=== PATIENT | male | born 1970 | race Caucasian/White ===

== ENCOUNTER 2016-06-16 04:38 | Emergency (ER) | payer OTHER ==
[~2016-06-16] VITALS: Ht 172.7 cm; Wt 134.5 kg
[~2016-06-16 04:38] MED LIST: ACET500C PO; COUM6TAB PO; GEMF600T PO; GLIP10TA6 PO; METF1000 PO; NEUR600T PO; PANT40TA3 PO; POTA-245 PO
[2016-06-16 04:39] VITALS: BP 138/83; PULSE 88; RESP 16; TEMP 98; O2SAT 94
--- NOTE | 2016-06-16 05:23 | PD ---
HPI Chief Complaint: Skin Problem Time Seen by Provider: 05:18 Travel History International Travel<30 days: No Contact w/Intl Traveler<30days: No Traveled to known affect area: No History of Present Illness HPI 46-year-old white male presents emergency department with complaints of a insect bite to his left leg which occurred a few days ago. He states that there is a small pustule that he squeezed. It had a small amount of clear fluid. He put Neosporin and a Band-Aid over it. Since then he has noticed some redness around it. He comes in for evaluation. He denies any drainage. No fever chills. No purulent drainage. Positive pruritus in the area of the redness. Up-to-date with immunizations. PFSH Past Medical History Hx Anticoagulant Therapy: Yes Asthma: Yes Autoimmune Disease: No Anxiety: Yes Depression: Yes Heart Rhythm Problems: No Cancer: No Cardiac Catheterization: Yes (X 1) Cardiovascular Problems: Yes High Cholesterol: Yes Chemotherapy: No Chest Pain: Yes Congestive Heart Failure: No COPD: No Cerebrovascular Accident: No Diabetes: Yes Patient Takes Glucophage: Yes Diminished Hearing: No Deep Vein Thrombosis: Yes (DVT AND PE'S. ) Endocrine: Yes Gastrointestinal Disorders: No Genitourinary: No Hypertension: No Immune Disorder: No Implanted Vascular Access Dvce: No Kidney Stones: No Musculoskeletal: No Neurologic: No Psychiatric: Yes Reproductive: No Respiratory: Yes Immunizations Current: Yes Myocardial Infarction: Yes (x2) Pancreatitis: Yes Radiation Therapy: No Renal Failure: No Sleep Apnea: No Thyroid Disease: Yes PNEUMOCCOCAL Vaccine (Year): 1 Past Surgical History Abdominal Surgery: Yes (BILATERAL INGUINAL HERNIA REPAIRS x 2) AICD: No Arteriovenous Shunt: No Body Medical Devices: cardiac stent Cardiac Surgery: No Coronary Stent: Yes Ear Surgery: No Endocrine Surgery: No Eye Surgery: No Genitourinary Surgery: No Hysterectomy: No Insulin Pump: No Joint Replacement: No Neurologic Surgery: No Oral Surgery: No Pacemaker: No Thoracic Surgery: No Other Surgery: Yes (DVT REMOVAL FROM LEFT LEG) Social History Alcohol Use: No Tobacco Use: No Substance Use: No Allergies-Medications (Allergen,Severity, Reaction): Coded Allergies: Adhesives (Verified Allergy, Severe, Hives, 05/06/16) Ibuprofen (Verified Allergy, Severe, Rash, 05/06/16) Latex (Verified Allergy, Severe, RASH, 05/06/16) Reported Meds & Prescriptions Reported Meds & Active Scripts Active Neurontin (Gabapentin) 600 Mg Tab 600 Mg PO TID Metformin (Metformin HCl) 1,000 Mg Tab 1,000 Mg PO BIDPC With meals Klor-Con M20 (Potassium Chloride Microencaps) 20 Meq Tab 20 Meq PO DAILY Coumadin (Warfarin) 6 Mg Tab 6 Mg PO DAILY 1 tablet on SMW, 2 tabs Tue Thurs Sat. Reported Glipizide 10 Mg Tab 10 Mg PO QID Take 30 minutes before a meal Gemfibrozil 600 Mg Tab 600 Mg PO BIDAC Take 30 minutes prior to breakfast and dinner. Acetaminophen 500 Mg Cap 500 Mg PO Q4-6H PRN Review of Systems Except as stated in HPI: all other systems reviewed are Neg Physical Exam Narrative GENERAL: This is a well-nourished, well-developed patient, in no apparent distress. SKIN: Examination of the inner left upper leg just above the knee there is a rectangular area of erythema with few superficial vesicles. There is no fluctuance or pointing. There is an area of central scab with healing. No drainage. HEAD: Atraumatic. Normocephalic. NECK: Trachea midline. supple, moves head freely. LUNGS: Clear to auscultation. CV: Regular in rhythm. ABDOMEN: Soft nontender. EXT: No clubbing cyanosis or edema. Data Data Last Documented VS Vital Signs Date Time Temp Pulse Resp B/P Pulse Ox O2 Delivery O2 Flow Rate FiO2 06/16/16 04:39 98.0 88 16 138/83 94 MDM Medical Decision Making Medical Screen Exam Complete: Yes Emergency Medical Condition: Yes Medical Record Reviewed: Yes Differential Diagnosis MDM: High Differential diagnoses: Abscess, folliculitis, cellulitis, lymphangitis, abrasion, contact dermatitis Narrative Course This is a contact reaction from applying topical antibiotic cream and a Band- Aid over a insect bite. The insect bite is healing. There is no signs of any secondary infection. He is having a localized allergic reaction. He is advised to discontinue topical antibiotic cream and Band-Aid. She is to use 1% had a cortisone cream. Diagnosis Primary Impression: insect bite with local reaction Patient Instructions: General Instructions Additional Instructions: Rest. Daily wound care with soap, water, and apply 1% hydrocortisone cream 3 times daily. May take 25-50 g of Benadryl every 4-6 hours as needed for pruritus. Recheck with the clinic in 3-5 days. Return to the ER if any problems. Med/Other Pt SpecificInfo: Wound Care Disposition: 01 DISCHARGE HOME Condition: Stable Viet Abdalla Jun 16, 2016 05:23
[2016-07-29] MEDS ORDERED: NOVORP2 SQ (15:08)
[2016-07-29] MEDS ORDERED: FURO1TAB62 PO (15:11)
[2016-07-29] MEDS ORDERED: TYLE325T PO (15:13)
[2016-08-27] MEDS ORDERED: METF1000 PO (16:35)
== END 2016-06-16 05:25 | disposition home or self-care (01) ==
LOC: NEPB 04:38
DX: S70.362A Insect bite (nonvenomous), left thigh, initial encounter (principal); E78.00 Pure hypercholesterolemia, unspecified; Z86.718 Personal history of other venous thrombosis and embolism; Z79.01 Long term (current) use of anticoagulants
CPT/HCPCS: 99283

== ENCOUNTER 2016-07-17 22:10 | Emergency (ER) | payer OTHER ==
[~2016-07-17] VITALS: Ht 172.7 cm; Wt 137.0 kg
[~2016-07-17 22:10] MED LIST changes: -PANT40TA3 PO
[2016-07-17 22:14] VITALS: BP 176/88; PULSE 90; RESP 16; TEMP 97.7; O2SAT 96
--- NOTE | 2016-07-17 23:36 | PD ---
HPI Chief Complaint: Musculoskeletal Complaint Time Seen by Provider: 23:34 Travel History International Travel<30 days: No Contact w/Intl Traveler<30days: No Traveled to known affect area: No History of Present Illness HPI 46-year-old white male presents to emergency department with complaints of tenderness in the right palm for the past few hours. He states that he noticed a tender area in his palm which he felt had some nodularity to it. He states that he was concerned that this may be a blood clot. He states that he works out on a daily basis with [employer]. He takes Coumadin due to history of blood clots in his lower extremities. His last INR was 2.4 approximately 2 months ago according to the patient. He denies any numbness or tingling. No direct trauma other than a weight lifting. He does not recall an injury though [facility] Past Medical History Hx Anticoagulant Therapy: Yes Asthma: Yes Autoimmune Disease: No Anxiety: Yes Depression: Yes Heart Rhythm Problems: No Cancer: No Cardiac Catheterization: Yes (X 1) Cardiovascular Problems: Yes ([place]) High Cholesterol: Yes Chemotherapy: No Chest Pain: Yes Congestive Heart Failure: No COPD: No Cerebrovascular Accident: No Diabetes: Yes Diminished Hearing: No Deep Vein Thrombosis: Yes (DVT AND PE'S. ) Endocrine: Yes Gastrointestinal Disorders: No Genitourinary: No Hypertension: No Immune Disorder: No Implanted Vascular Access Dvce: No Kidney Stones: No Musculoskeletal: No Neurologic: No Psychiatric: Yes Reproductive: No Respiratory: Yes (PE X2) Immunizations Current: Yes Myocardial Infarction: Yes (x2) Pancreatitis: Yes Radiation Therapy: No Renal Failure: No Sleep Apnea: No Thyroid Disease: Yes PNEUMOCCOCAL Vaccine (Year): 1 Past Surgical History Abdominal Surgery: Yes (BILATERAL INGUINAL HERNIA REPAIRS x 2) AICD: No Arteriovenous Shunt: No Body Medical Devices: cardiac stent Cardiac Surgery: No Coronary Stent: Yes Ear Surgery: No Endocrine Surgery: No Eye Surgery: No Genitourinary Surgery: No Hysterectomy: No Insulin Pump: No Joint Replacement: No Neurologic Surgery: No Oral Surgery: No Pacemaker: No Thoracic Surgery: No Other Surgery: Yes (DVT REMOVAL FROM LEFT LEG) Social History Alcohol Use: No Tobacco Use: No Substance Use: No Allergies-Medications (Allergen,Severity, Reaction): Coded Allergies: Adhesives (Verified Allergy, Severe, Hives, 07/17/16) Ibuprofen (Verified Allergy, Severe, Rash, 07/17/16) Latex (Verified Allergy, Severe, RASH, 07/17/16) Reported Meds & Prescriptions Reported Meds & Active Scripts Active Neurontin (Gabapentin) 600 Mg Tab 600 Mg PO TID Metformin (Metformin HCl) 1,000 Mg Tab 1,000 Mg PO BIDPC With meals Klor-Con M20 (Potassium Chloride Microencaps) 20 Meq Tab 20 Meq PO DAILY Coumadin (Warfarin) 6 Mg Tab 6 Mg PO DAILY 1 tablet on SMW, 2 tabs Tue Thurs Sat. Reported Glipizide 10 Mg Tab 10 Mg PO QID Take 30 minutes before a meal Gemfibrozil 600 Mg Tab 600 Mg PO BIDAC Take 30 minutes prior to breakfast and dinner. Acetaminophen 500 Mg Cap 500 Mg PO Q4-6H PRN Review of Systems Except as stated in HPI: all other systems reviewed are Neg Physical Exam Narrative GENERAL: This is a well-nourished, well-developed patient, in no apparent distress. SKIN: No rashes, ecchymoses or lesions. Warm and dry. HEAD: Atraumatic. Normocephalic. EYES: PERRL, EOMI, no discharge or injection. No scleral icterus. EARS: Clear NOSE: Nasal turbinates appear normal. THROAT: Mucosa pink and moist. Airway patent. NECK: Trachea midline. supple, moves head freely. LUNGS: Clear to auscultation. CV: Regular in rhythm. ABDOMEN: Soft nontender. EXT: No clubbing cyanosis chronic edema to the lower extremities. He is wearing DESIREE hose. Examination of the right hand reveals mild tenderness in the thenar eminence but no erythema, warmth or swelling. He moves his hand freely. He has good distal pulses and Refill. No evidence of DVT. Data Data Last Documented VS Vital Signs Date Time Temp Pulse Resp B/P Pulse Ox O2 Delivery O2 Flow Rate FiO2 07/17/16 22:14 97.7 90 16 176/88 96 Room Air Orders Prothrombin Time / Inr (Pt) (07/17/16 23:17) Labs Laboratory Tests Test 07/17/16 23:29 Prothrombin Time 29.7 SEC Prothromb Time International 2.6 RATIO Ratio MDM Medical Decision Making Medical Screen Exam Complete: Yes Emergency Medical Condition: Yes Medical Record Reviewed: Yes Interpretation(s) Laboratory Tests Test 07/17/16 23:29 Prothrombin Time 29.7 SEC Prothromb Time International 2.6 RATIO Ratio Differential Diagnosis MDM: High Differential diagnoses: Fracture, sprain, strain, dislocation, contusion, neurovascular injury, DVT Narrative Course INR is 2.6. I do not believe that this is a blood clot. This may be a small hematoma but I do not see any major significance to it at this time. This is right hand pain Diagnosis Primary Impression: Right hand pain Patient Instructions: General Instructions Additional Instructions: Rest. Elevation. Heating pad. Tylenol. Follow-up with your doctor on Thursday. Med/Other Pt SpecificInfo: No Meds Exist/No RX given Disposition: DISCHARGE HOME Condition: Stable Viet Abdalla Jul 17, 2016 23:36
[2016-07-18 00:01] LABS: INTERNATIONAL NORMALIZED RATIO 2.6 RATIO; PROTHROMBIN TIME - PATIENT 29.7 SEC (9.8-11.6)
[2016-07-29] MEDS ORDERED: NOVORP2 SQ (15:08)
[2016-07-29] MEDS ORDERED: FURO1TAB62 PO (15:11)
[2016-07-29] MEDS ORDERED: TYLE325T PO (15:13)
[2016-08-27] MEDS ORDERED: METF1000 PO (16:35)
== END 2016-07-18 01:09 | disposition home or self-care (01) ==
LOC: NEPB 22:10
DX: M79.641 Pain in right hand (principal); Z86.718 Personal history of other venous thrombosis and embolism; Z86.711 Personal history of pulmonary embolism; E78.00 Pure hypercholesterolemia, unspecified; I25.2 Old myocardial infarction; J45.909 Unspecified asthma, uncomplicated; E11.9 Type 2 diabetes mellitus without complications
CPT/HCPCS: 85610; 99283

== ENCOUNTER 2016-08-22 01:21 | Emergency (ER) | payer OTHER ==
[~2016-08-22] VITALS: Ht 172.7 cm; Wt 136.0 kg
[~2016-08-22 01:21] MED LIST changes: -CIPR-9 PO; -HYDR-3533 PO; -LOPE2CAP PO; -LOPE2TAB3 PO; -WARF-60 PO
[2016-08-22 01:23] VITALS: BP 148/82; PULSE 104; RESP 16; TEMP 97.7; O2SAT 96
--- NOTE | 2016-08-22 02:29 | PD ---
HPI Chief Complaint: Chest Pain Time Seen by Provider: 02:02 Travel History International Travel<30 days: No Contact w/Intl Traveler<30days: No Traveled to known affect area: No History of Present Illness HPI 46-year-old man with a history of multiple medical problems including morbid obesity, CAD, PE on warfarin, diabetes, and pancreatitis who presents to the emergency department complaining of dark mucoid loose stools for the past 4 days. Patient states that intermittent similar diarrhea in the past. He's had multiple associated complaints including some intermittent leg pain similar to his past sciatica but in the other leg, as well as some right sided chest pain and that's been ongoing. No vomiting. No fevers. History Past Medical History Narrative Medical CAD, [place] PE, on warfarin Diabetes Hypothyroidism Neuropathy PNEUMOCCOCAL Vaccine (Year): 1 Social History Alcohol Use: No Tobacco Use: No Allergies-Medications (Allergen,Severity, Reaction): Coded Allergies: Adhesives (Verified Allergy, Severe, Hives, 08/22/16) Ibuprofen (Verified Allergy, Severe, Rash, 08/22/16) Latex (Verified Allergy, Severe, RASH, 08/22/16) Reported Meds & Prescriptions Reported Meds & Active Scripts Active Lasix (Furosemide) 20 Mg Tab 20 Mg PO DAILY Neurontin (Gabapentin) 600 Mg Tab 600 Mg PO TID Metformin (Metformin HCl) 1,000 Mg Tab 1,000 Mg PO BIDPC With meals Klor-Con M20 (Potassium Chloride Microencaps) 20 Meq Tab 20 Meq PO DAILY Coumadin (Warfarin) 6 Mg Tab 6 Mg PO DAILY 1 tablet on SMW, 2 tabs Tue Thurs Sat. Reported Glipizide 10 Mg Tab 10 Mg PO QID Take 30 minutes before a meal Gemfibrozil 600 Mg Tab 600 Mg PO BIDAC Take 30 minutes prior to breakfast and dinner. Acetaminophen 500 Mg Cap 500 Mg PO Q4-6H PRN Review of Systems Except as stated in HPI: all other systems reviewed are Neg Physical Exam Narrative GENERAL: Morbidly obese 38 year-old man, pacing SKIN: Focused skin assessment warm/dry. NECK: Trachea midline. No JVD. CARDIOVASCULAR: Regular rate and rhythm. No murmur appreciated. RESPIRATORY: No accessory muscle use. Clear to auscultation. Breath sounds equal bilaterally. GASTROINTESTINAL: Abdomen is obese, soft, some mild right sided tenderness. No rebound or guarding. MUSCULOSKELETAL: No obvious deformities. No edema. NEUROLOGICAL: Awake and alert. No obvious cranial nerve deficits. Motor grossly within normal limits. Normal speech. PSYCHIATRIC: Appropriate mood and affect; insight and judgment normal. Data Data Last Documented VS Vital Signs Date Time Temp Pulse Resp B/P Pulse Ox O2 Delivery O2 Flow Rate FiO2 08/22/16 01:23 97.7 104 16 148/82 96 Room Air Orders Electrocardiogram (08/22/16 ) Complete Blood Count With Diff (08/22/16 02:11) Comprehensive Metabolic Panel (08/22/16 02:11) Enteric Path (Stool) (08/22/16 02:11) C Diff Toxin Pcr (08/22/16 02:11) Chest, Single Ap (08/22/16 ) Prothrombin Time / Inr (Pt) (08/22/16 03:25) Labs Laboratory Tests Test 08/22/16 08/22/16 02:30 03:20 White Blood Count 10.7 TH/MM3 Red Blood Count 5.28 MIL/MM3 Hemoglobin 15.7 GM/DL Hematocrit 44.2 % Mean Corpuscular Volume 83.7 FL Mean Corpuscular Hemoglobin 29.6 PG Mean Corpuscular Hemoglobin 35.4 % Concent Red Cell Distribution Width 13.8 % Platelet Count 244 TH/MM3 Mean Platelet Volume 9.2 FL Neutrophils (%) (Auto) 57.1 % Lymphocytes (%) (Auto) 31.5 % Monocytes (%) (Auto) 7.8 % Eosinophils (%) (Auto) 2.9 % Basophils (%) (Auto) 0.7 % Neutrophils # (Auto) 6.1 TH/MM3 Lymphocytes # (Auto) 3.4 TH/MM3 Monocytes # (Auto) 0.8 TH/MM3 Eosinophils # (Auto) 0.3 TH/MM3 Basophils # (Auto) 0.1 TH/MM3 CBC Comment DIFF FINAL Differential Comment Sodium Level 142 MEQ/L Potassium Level 4.0 MEQ/L Chloride Level 105 MEQ/L Carbon Dioxide Level 27.4 MEQ/L Anion Gap 10 MEQ/L Blood Urea Nitrogen 15 MG/DL Creatinine 0.98 MG/DL Estimat Glomerular Filtration 82 ML/MIN Rate Random Glucose 150 MG/DL Calcium Level 9.4 MG/DL Total Bilirubin 0.4 MG/DL Aspartate Amino Transf 20 U/L (AST/SGOT) Alanine Aminotransferase 34 U/L (ALT/SGPT) Alkaline Phosphatase 89 U/L Total Protein 7.3 GM/DL Albumin 3.7 GM/DL Prothrombin Time 20.0 SEC Prothromb Time International 1.8 RATIO Ratio MDM Medical Decision Making Medical Screen Exam Complete: Yes Emergency Medical Condition: Yes Interpretation(s) My review of EKG: Normal sinus rhythm at a rate of 90, normal axis, normal intervals, no definite evidence of acute ischemia. LABS: CBC unremarkable. BMP unremarkable INR 1.8 Differential Diagnosis Diarrhea, colitis, enteritis, pancreatic exocrine insufficiency, other Narrative Course Medical decision making 38-year-old male history of hepatitis presents to the emergency department with mucoid oily stools for the past several days. Likely enteritis or pancreatic exocrine insufficiency. We'll check screening labs. His multiple associated complaints including some right sided chest pain. He looks otherwise well. We' ll check screening EKG and chest x-ray. Diagnosis Primary Impression: Diarrhea Additional Instructions: Take Cipro and Imodium as prescribed. Follow-up with your primary doctor next week for repeat evaluation and recheck INR. Return to the emergency department for any new or worsening symptoms. Med/Other Pt SpecificInfo: Prescription(s) given Scripts Loperamide 2 Mg Tab2 Mg PO DIRECTED PRN (DIARRHEA) #8 TAB One tablet after each loose stool. Not to exceed 8 tablets per day. Prov:Tyrell Lopez MD 08/22/16 Ciprofloxacin (Cipro)500 Mg [id number] Mg PO BID 5 Days Prov:Tyrell Lopez MD 08/22/16 Disposition: 01 DISCHARGE HOME Condition: Stable Tyrell Lopez MD Aug 22, 2016 02:29
[2016-08-22 02:49] LABS: AUTOMATED NEUTROPHIL # 6.1 TH/MM3 (1.8-7.7); BASOPHIL # 0.1 TH/MM3 (0-0.2); BASOPHIL % 0.7 % (0.0-2.0); EOSINOPHIL # 0.3 TH/MM3 (0-0.4); EOSINOPHIL % 2.9 % (0.0-4.0); HEMATOCRIT 44.2 % (39.0-51.0); HEMO FLAGS DIFF FINAL; LYMPH % 31.5 % (9.0-44.0); LYMPHOCYTE # 3.4 TH/MM3 (1.0-4.8); MEAN CELL VOLUME 83.7 FL (80.0-100.0); MEAN CORPUSCULAR HEMOGLOBIN 29.6 PG (27.0-34.0); MEAN CORPUSCULAR HGB CONC 35.4 % (32.0-36.0); MONO % 7.8 % (0.0-8.0); NEUT % 57.1 % (16.0-70.0); PLATELET COUNT 244 TH/MM3 (150-450); RED BLOOD COUNT 5.28 MIL/MM3 (4.50-5.90); RED CELL DISTRIBUTION WIDTH 13.8 % (11.6-17.2); WHITE BLOOD COUNT 10.7 TH/MM3 (4.0-11.0)
[2016-08-22 03:16] LABS: ALT (GPT) 34 U/L (12-78); ANION GAP 10 MEQ/L (5-15); AST (GOT) 20 U/L (15-37); BICARBONATE 27.4 MEQ/L (21.0-32.0); BLOOD UREA NITROGEN 15 MG/DL (7-18); CHLORIDE 105 MEQ/L (98-107); GLOMERULAR FILTRATION RATE 82 ML/MIN (>89); SODIUM (NA) 142 MEQ/L (136-145)
[2016-08-22 03:19] LABS: ALKALINE PHOSPHATASE 89 U/L (45-117); TOTAL BILIRUBIN ADULT 0.4 MG/DL (0.2-1.0)
--- NOTE | 2016-08-22 03:19 | RADRPT ---
EXAM DATE/TIME: 08/22/2016 02:36 [facility] COMPARISON: CHEST SINGLE AP, January 31, 2014, 5:53. INDICATIONS : Chest pain. MEDICAL HISTORY : Myocardial infarction. Diabetes mellitus type II. Coronary artery disease. SURGICAL HISTORY : Coronary artery stent. ENCOUNTER: Initial ACUITY: 1 day PAIN SCORE: 5/10 LOCATION: Bilateral chest FINDINGS: The lungs are clear without infiltrate, nodule, or mass. There is no appreciable pleural effusion fo r technique. Heart and mediastinum are unremarkable. CONCLUSION: No acute cardiopulmonary disease. Hazel Raza MD on August 22, 2016 at 3:17 Board Certified Radiologist. This report was verified electronically.
[2016-08-22 03:53] LABS: INTERNATIONAL NORMALIZED RATIO 1.8 RATIO
[2016-08-22] MEDS ORDERED: CIPR-9 PO (04:09)
[2016-08-22] MEDS ORDERED: LOPE2TAB3 PO (04:09)
--- NOTE | 2016-08-22 13:39 | EKG ---
Date Performed: 08/22/2016 Time Performed: 02:21:59 PTAGE: 46 years EKG: Sinus rhythm NONSPECIFIC T-WAVE ABNORMALITY BORDERLINE ECG Compared to prior tracing no significant change PREVIOUS TRACING : 01/24/2015 13.33 DOCTOR: [place] Interpretating Date/Time 08/22/2016 13:36:36
[2016-08-27] MEDS ORDERED: METF1000 PO (16:35)
== END 2016-08-22 04:53 | disposition home or self-care (01) ==
LOC: NEPC 01:21
DX: R19.7 Diarrhea, unspecified (principal); R07.89 Other chest pain; M79.606 Pain in leg, unspecified; R94.31 Abnormal electrocardiogram [ECG] [EKG]; E11.9 Type 2 diabetes mellitus without complications; E03.9 Hypothyroidism, unspecified; E66.01 Morbid (severe) obesity due to excess calories; Z79.01 Long term (current) use of anticoagulants; Z79.84 Long term (current) use of oral hypoglycemic drugs; Z86.79 Personal history of other diseases of the circulatory system; Z86.711 Personal history of pulmonary embolism; Z87.19 Personal history of other diseases of the digestive system; Z86.69 Personal history of other diseases of the nervous system and sense organs
CPT/HCPCS: 71010; 80053; 85025; 85610; 93005

== ENCOUNTER → 2016-08-22 | Outpatient (CLI) | payer OTHER ==
[~2016-08-22] MED LIST changes: +CIPR-9 PO; +FURO1TAB62 PO; +HYDR-3533 PO; +LOPE2CAP PO; +LOPE2TAB3 PO; +WARF-60 PO
[2016-08-22 15:29] LABS: INTERNATIONAL NORMALIZED RATIO 1.9 RATIO; PROTHROMBIN TIME - PATIENT 21.4 SEC (9.8-11.6)
[2016-08-22 15:50] LABS: HDL CHOLESTEROL 37.9 MG/DL (40.0-60.0); LDL CHOLESTEROL 120 MG/DL (0-99)
[2016-08-22 16:30] LABS: HEMOGLOBIN A1a 1.2 %; HEMOGLOBIN A1b 2.7 %; HEMOGLOBIN Ao 79.2 %; HEMOGLOBIN LA1C 2.7 %; HEMOGLOBIN P3 4.3 %
== END ==
LOC: CLAB 13:56
PROVIDERS: ATTEND Physician Assistant Medical
DX: I82.409 Acute embolism and thrombosis of unspecified deep veins of unspecified lower extremity (principal); E78.5 Hyperlipidemia, unspecified; Z86.711 Personal history of pulmonary embolism
CPT/HCPCS: 36415; 80061; 83036; 85610

== ENCOUNTER 2016-08-28 18:58 | Emergency (ER) | payer OTHER ==
[~2016-08-28 18:58] MED LIST changes: +CIPR-9 PO; +LOPE2TAB3 PO
[2016-08-28 19:00] VITALS: BP 133/67; PULSE 94; RESP 16; TEMP 98; O2SAT 95
--- NOTE | 2016-08-28 19:59 | PD ---
HPI Chief Complaint: Injury Time Seen by Provider: 19:56 Travel History International Travel<30 days: No Contact w/Intl Traveler<30days: No Traveled to known affect area: No History of Present Illness HPI 46-year-old white male presents to emergency department complains of right fifth toe pain after an injury 3 days ago. He had stubbed his foot. He has complaint of pain, swelling and ecchymosis. Pain is moderate. Worse with weightbearing. Some relief with elevation. PFSH Past Medical History Hx Anticoagulant Therapy: Yes Asthma: Yes Autoimmune Disease: No Anxiety: Yes Depression: Yes Heart Rhythm Problems: No Cancer: No Cardiac Catheterization: Yes (X 1) Cardiovascular Problems: Yes High Cholesterol: Yes Chemotherapy: No Chest Pain: Yes Congestive Heart Failure: No COPD: No Cerebrovascular Accident: No Diabetes: Yes Patient Takes Glucophage: Yes Diminished Hearing: No Deep Vein Thrombosis: Yes (DVT AND PE'S. ) Endocrine: Yes Gastrointestinal Disorders: No Genitourinary: No Hypertension: No Immune Disorder: No Implanted Vascular Access Dvce: No Kidney Stones: No Musculoskeletal: No Neurologic: No Psychiatric: Yes Reproductive: No Respiratory: Yes (PE) Immunizations Current: Yes Myocardial Infarction: Yes (x2) Pancreatitis: Yes Radiation Therapy: No Renal Failure: No Sleep Apnea: No Thyroid Disease: Yes PNEUMOCCOCAL Vaccine (Year): 1 Past Surgical History Abdominal Surgery: Yes (BILATERAL INGUINAL HERNIA REPAIRS x 2) AICD: No Arteriovenous Shunt: No Body Medical Devices: cardiac stent Cardiac Surgery: No Coronary Stent: Yes Ear Surgery: No Endocrine Surgery: No Eye Surgery: No Genitourinary Surgery: No Hysterectomy: No Insulin Pump: No Joint Replacement: No Neurologic Surgery: No Oral Surgery: No Pacemaker: No Thoracic Surgery: No Social History Alcohol Use: No Tobacco Use: No Substance Use: No Allergies-Medications (Allergen,Severity, Reaction): Coded Allergies: Adhesives (Verified Allergy, Severe, Hives, 08/28/16) Ibuprofen (Verified Allergy, Severe, Rash, 08/28/16) Latex (Verified Allergy, Severe, RASH, 08/28/16) Reported Meds & Prescriptions Reported Meds & Active Scripts Active Lortab (Hydrocodone-Acetaminophen) 5-325 Mg Tab 1 Tab PO Q8HR PRN Metformin (Metformin HCl) 1,000 Mg Tab 1,000 Mg PO BIDPC With meals Loperamide (Loperamide HCl) 2 Mg Tab 2 Mg PO DIRECTED PRN One tablet after each loose stool. Not to exceed 8 tablets per day. Cipro (Ciprofloxacin HCl) 500 Mg Tab 500 Mg PO BID 5 Days Neurontin (Gabapentin) 600 Mg Tab 600 Mg PO TID Klor-Con M20 (Potassium Chloride Microencaps) 20 Meq Tab 20 Meq PO DAILY Coumadin (Warfarin) 6 Mg Tab 6 Mg PO DAILY 1 tablet on SMW, 2 tabs Tue Thurs Sat. Reported Glipizide 10 Mg Tab 10 Mg PO QID Take 30 minutes before a meal Gemfibrozil 600 Mg Tab 600 Mg PO BIDAC Take 30 minutes prior to breakfast and dinner. Review of Systems Except as stated in HPI: all other systems reviewed are Neg Physical Exam Narrative GENERAL: This is a well-nourished, well-developed patient, in no apparent distress. SKIN: No rashes, ecchymoses or lesions. Warm and dry. HEAD: Atraumatic. Normocephalic. EYES: PERRL, EOMI, no discharge or injection. No scleral icterus. EARS: Clear NOSE: Nasal turbinates appear normal. THROAT: Mucosa pink and moist. Airway patent. NECK: Trachea midline. supple, moves head freely. LUNGS: Clear to auscultation. CV: Regular in rhythm. ABDOMEN: Soft nontender. EXT: No clubbing cyanosis or edema. Examination of the right foot reveals tenderness to the fifth toe with mild swelling. He has ecchymosis in the first through fourth toes. The skin is intact. Intact gross sensation. Good Refill. Data Data Last Documented VS Vital Signs Date Time Temp Pulse Resp B/P Pulse Ox O2 Delivery O2 Flow Rate FiO2 08/28/16 19:00 98.0 94 16 133/67 95 Room Air Orders Foot, Complete ([id number]) (08/28/16 19:49) [facility] Medical Decision Making Medical Screen Exam Complete: Yes Emergency Medical Condition: Yes Medical Record Reviewed: Yes Interpretation(s) Last 24 hours Impressions Foot X-Ray 08/28/161948 Signed Impressions: Service Date/Time: August 20:17 - CONCLUSION: Fourth and fifth toe proximal phalangeal fractures. Fifth toe tuft fracture. Daniel Christopher MD Differential Diagnosis MDM: High Differential diagnoses: Fracture, sprain, strain, dislocation, contusion, neurovascular injury Narrative Course X-rays of the right foot reveal minor nondisplaced fractures of the fourth and fifth toe. Patient is made aware he must get refill of pain medication through his doctor. Patient given Lortab 5 milligram by mouth for pain. Diagnosis Primary Impression: fracture right fifth and fourth toe Patient Instructions: General Instructions Additional Instructions: Rest. Elevation. Ice. Lortab for severe pain. No refills of narcotics through the ER. Follow-up with your doctor in 3-5 days for recheck. Return to the ER for emergencies Med/Other Pt SpecificInfo: Prescription(s) given Scripts Hydrocodone-Acetaminophen (Lortab)5-325 Mg Tab1 Tab PO Q8HR PRN (PAIN) #20 TAB Prov:Andrés Herrmann MD 08/28/16 Disposition: 01 DISCHARGE HOME Condition: Stable Viet Abdalla Aug 28, 2016 19:58
--- NOTE | 2016-08-28 20:20 | RADRPT ---
EXAM DATE/TIME: 08/28/2016 20:17 [facility] COMPARISON: No previous studies available for comparison. INDICATIONS : Patient fell 4 days ago ; pain in 2nd and 5th toe with discoloration. MEDICAL HISTORY : Diabetes mellitus type I. SURGICAL HISTORY : None. ENCOUNTER: Initial ACUITY: 4 - 6 days PAIN SCORE: 10/10 LOCATION: Right 2nd anf 5th toe FINDINGS: There are minimally displaced predominantly transverse fractures involving the proximal aspect of the fourth and fifth toe proximal phalanges. There is a minimally displaced oblique fracture involving t he tuft of the fifth toe distal phalanx. The bony elements appear otherwise intact. A moderate-sized plantar heel spur is noted. CONCLUSION: Fourth and fifth toe proximal phalangeal fractures. Fifth toe tuft fracture. Daniel Christopher MD on August 28, 2016 at 20:15 Board Certified Radiologist. This report was verified electronically.
[2016-08-28] MEDS ORDERED: HYDR-3533 PO (20:29)
[2016-08-28] MEDS ORDERED: ACETAMINOPHEN/HYDROcodone 325 MG/5 MG TAB PO ONE (20:30)
== END 2016-08-28 21:08 | disposition home or self-care (01) ==
LOC: NEPK 18:58
DX: S92.511A Displaced fracture of proximal phalanx of right lesser toe(s), initial encounter for closed fracture (principal); S92.411A Displaced fracture of proximal phalanx of right great toe, initial encounter for closed fracture; Z79.01 Long term (current) use of anticoagulants; E78.00 Pure hypercholesterolemia, unspecified; Z86.718 Personal history of other venous thrombosis and embolism; E11.9 Type 2 diabetes mellitus without complications; Z79.4 Long term (current) use of insulin; W22.8XXA Striking against or struck by other objects, initial encounter; Y93.9 Activity, unspecified; Y92.9 Unspecified place or not applicable; Y99.9 Unspecified external cause status
CPT/HCPCS: 73630; 99283

== ENCOUNTER 2016-09-12 22:17 | Emergency (ER) | payer OTHER ==
[~2016-09-12 22:17] MED LIST changes: -ACET500C PO; -FURO1TAB62 PO; +HYDR-3533 PO
[2016-09-12 22:22] VITALS: BP 157/79; PULSE 89; RESP 18; TEMP 98; O2SAT 95
== END 2016-09-12 22:40 | disposition left against medical advice (07) ==
LOC: NED 22:17
DX: R06.02 Shortness of breath (principal)
CPT/HCPCS: 99281

== ENCOUNTER 2016-09-17 22:40 | Emergency (ER) | payer OTHER ==
[2016-09-17 22:45] VITALS: BP 149/81; PULSE 96; RESP 18; TEMP 97.9; O2SAT 97
--- NOTE | 2016-09-17 22:46 | PD ---
Physical Exam Time Seen by Provider: 22:45 Narrative 46 y/o male presents with diarrhea and SOB which he believes is related to pancreatitis. Symptom onset last week. Endorses some mile pain in the upper abdomen region. Lomotil worked well when it was prescribed earlier this month. Vital signs reviewed. Seen at triage desk. Awaiting bed placement. Data Data Last Documented VS Vital Signs Date Time Temp Pulse Resp B/P Pulse Ox O2 Delivery O2 Flow Rate FiO2 09/17/16 22:45 97.9 96 18 149/81 97 Room Air [facility] Medical Record Reviewed: Yes Supervised Visit with KACI: No Kevin Hernandez September 17, 2016 22:46
[2016-09-18] MEDS ORDERED: SODIUM CHLORIDE 0.9% FLUSH 10 ML FLUSH IV FLUSH PRN (01:15)
[2016-09-18] MEDS ORDERED: LOPERAMIDE HCL SOLN 2 MG/10 ML UDC PO ONE (01:15)
--- NOTE | 2016-09-18 01:46 | PD ---
HPI Chief Complaint: GI Complaint Time Seen by Provider: 00:58 Travel History International Travel<30 days: No Contact w/Intl Traveler<30days: No Traveled to known affect area: No History of Present Illness HPI 46-year-old male with history of CAD, diabetes, pancreatitis, morbid obesity, here for evaluation of epigastric abdominal pain and diarrhea. The patient reports having intermittent episodes of diarrhea for the last couple of weeks which improved with Lomotil. 24 hours after his last dose of Lomotil, the patient reports that his diarrhea has returned. Bowel movements are nonbloody. He states that they are explosive. Epigastric discomfort described as a tightness in a bandlike distribution in his upper abdomen. Denies chest pain. He feels nauseous but has not vomited. He has had history of abdominal wall hernia repairs, however denies intra-abdominal surgeries. No recent travel. No recent antibiotic use. 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 ) Endocrine: Yes Gastrointestinal Disorders: No Genitourinary: No Hypertension: No Immune Disorder: No Implanted Vascular Access Dvce: No Kidney Stones: No Musculoskeletal: No Neurologic: No Psychiatric: Yes Reproductive: No Respiratory: Yes (PE) Immunizations Current: Yes Myocardial Infarction: Yes (x2) Pancreatitis: Yes Radiation Therapy: No Renal Failure: No Sleep Apnea: No Thyroid Disease: Yes PNEUMOCCOCAL Vaccine (Year): 1 Past Surgical History Abdominal Surgery: Yes (BILATERAL INGUINAL HERNIA REPAIRS x 2) AICD: No Arteriovenous Shunt: No Body Medical Devices: cardiac stent Cardiac Surgery: No Coronary Stent: Yes Ear Surgery: No Endocrine Surgery: No Eye Surgery: No Genitourinary Surgery: No Hysterectomy: No Insulin Pump: No Joint Replacement: No Neurologic Surgery: No Oral Surgery: No Pacemaker: No Thoracic Surgery: No Social History Alcohol Use: No Tobacco Use: No Substance Use: No Allergies-Medications (Allergen,Severity, Reaction): Coded Allergies: Adhesives (Verified Allergy, Severe, Hives, 09/18/16) Ibuprofen (Verified Allergy, Severe, Rash, 09/18/16) Latex (Verified Allergy, Severe, RASH, 09/18/16) Reported Meds & Prescriptions Reported Meds & Active Scripts Active Metformin (Metformin HCl) 1,000 Mg Tab 1,000 Mg PO BIDPC With meals Neurontin (Gabapentin) 600 Mg Tab 600 Mg PO TID Klor-Con M20 (Potassium Chloride Microencaps) 20 Meq Tab 20 Meq PO DAILY Coumadin (Warfarin) 6 Mg Tab 6 Mg PO DAILY 1 tablet on SMW, 2 tabs Tue Thurs Sat. Reported Glipizide 10 Mg Tab 10 Mg PO QID Take 30 minutes before a meal Gemfibrozil 600 Mg Tab 600 Mg PO BIDAC Take 30 minutes prior to breakfast and dinner. Review of Systems Except as stated in HPI: all other systems reviewed are Neg Physical Exam Narrative GENERAL: Well-developed, well-nourished, overweight, lying in position, no apparent distress. SKIN: Focused skin assessment warm/dry. HEAD: Atraumatic. Normocephalic. EYES: Pupils equal and round. No scleral icterus. No injection or drainage. ENT: Mucous membranes pink and moist. CARDIOVASCULAR: Regular rate and rhythm. RESPIRATORY: No accessory muscle use. Clear to auscultation. Breath sounds equal bilaterally. GASTROINTESTINAL: Abdomen soft, nondistended. Mild epigastric tenderness without peritoneal signs. Rest of abdomen is soft and nontender. Normal bowel sounds. No hernias. MUSCULOSKELETAL: No obvious deformities. No clubbing. No cyanosis. No edema. NEUROLOGICAL: Awake and alert. No obvious cranial nerve deficits. Motor grossly within normal limits. Normal speech. PSYCHIATRIC: Appropriate mood and affect; insight and judgment normal. Data Data Last Documented VS Vital Signs Date Time Temp Pulse Resp B/P Pulse Ox O2 Delivery O2 Flow Rate FiO2 09/18/16 02:41 67 16 116/69 97 Room Air 09/17/16 22:45 97.9 Orders Complete Blood Count With Diff (09/18/16 01:05) Comprehensive Metabolic Panel (09/18/16 01:05) Lipase (09/18/16 01:05) Prothrombin Time / Inr (Pt) (09/18/16 01:05) Act Partial Throm Time (Ptt) (09/18/16 01:05) Iv Access Insert/Monitor (09/18/16 01:05) Ecg Monitoring (09/18/16 01:05) Oximetry (09/18/16 01:05) Sodium Chloride 0.9% Flush (Ns Flush) (09/18/16 01:15) Electrocardiogram (09/18/16 01:05) Ckmb (Isoenzyme) Profile (09/18/16 01:05) Troponin I (09/18/16 01:05) Loperamide Liq (Imodium Liq) (09/18/16 01:15) CKMB (09/18/16 02:00) CKMB% (09/18/16 02:00) Labs Laboratory Tests Test 09/18/16 02:00 White Blood Count 11.0 TH/MM3 Red Blood Count 5.02 MIL/MM3 Hemoglobin 14.2 GM/DL Hematocrit 42.4 % Mean Corpuscular Volume 84.5 FL Mean Corpuscular Hemoglobin 28.3 PG Mean Corpuscular Hemoglobin 33.5 % Concent Red Cell Distribution Width 14.1 % Platelet Count 231 TH/MM3 Mean Platelet Volume 8.6 FL Neutrophils (%) (Auto) 54.5 % Lymphocytes (%) (Auto) 34.6 % Monocytes (%) (Auto) 7.6 % Eosinophils (%) (Auto) 2.7 % Basophils (%) (Auto) 0.6 % Neutrophils # (Auto) 6.0 TH/MM3 Lymphocytes # (Auto) 3.8 TH/MM3 Monocytes # (Auto) 0.8 TH/MM3 Eosinophils # (Auto) 0.3 TH/MM3 Basophils # (Auto) 0.1 TH/MM3 CBC Comment DIFF FINAL Differential Comment Prothrombin Time 28.1 SEC Prothromb Time International 2.4 RATIO Ratio Activated Partial 42.7 SEC Thromboplast Time Sodium Level 140 MEQ/L Potassium Level 4.2 MEQ/L Chloride Level 103 MEQ/L Carbon Dioxide Level 28.9 MEQ/L Anion Gap 8 MEQ/L Blood Urea Nitrogen 13 MG/DL Creatinine 0.94 MG/DL Estimat Glomerular Filtration 86 ML/MIN Rate Random Glucose 102 MG/DL Calcium Level 8.9 MG/DL Total Bilirubin 0.4 MG/DL Aspartate Amino Transf 28 U/L (AST/SGOT) Alanine Aminotransferase 32 U/L (ALT/SGPT) Alkaline Phosphatase 84 U/L Total Creatine Kinase 132 U/L Creatine Kinase MB 0.5 NG/ML Troponin I LESS THAN 0.02 NG/ML Total Protein 6.8 GM/DL Albumin 3.3 GM/DL Lipase 138 U/L [facility] Medical Decision Making Medical Screen Exam Complete: Yes Emergency Medical Condition: Yes Medical Record Reviewed: Yes Interpretation(s) EKG: Sinus, rate 68, normal axis, normal intervals, no acute ischemic normality. Differential Diagnosis Pancreatitis, gastritis, peptic ulcer disease, hepatobiliary disease, colitis Narrative Course Vital signs show heart rate 67, blood pressure 116/69, pulse ox 97% on room air , oral temp of 97.9F. CBC is unremarkable. CMP is unremarkable. Lipase is 138. Cardiac enzymes are negative. INR is 2.4. EKG is nonischemic. I do not believe the patient's pain is cardiac in nature. On reassessment the patient is sleeping comfortably. He did not want any pain medications. He is only requesting antidiarrheal medications. He does have some mild epigastric tenderness, however there are no peritoneal signs. I do not believe that there is an acute intra-abdominal process to warrant CT scan or further imaging at this time. He is stable for discharge home with outpatient follow-up with his primary care physician this week. He was informed on when to return to the emergency department. He verbalizes understanding and agreement with plan. Diagnosis Primary Impression: Epigastric abdominal pain Additional Impression: Diarrhea Qualified Code: R19.7 - Diarrhea, unspecified type Referrals: Primary Care Physician 3 days Additional Instructions: Follow-up with your primary care physician this week. Stay hydrated with plenty of fluids. Return to the emergency department for worsening symptoms or any other concerns. Scripts Loperamide 2 Mg Cap2 Mg PO Q12HR PRN (DIARRHEA) #20 CAP Ref 0 One capsule after each loose stool. Not to exceed 8 capsules per day. Prov:Dionicio Gore MD 09/18/16 Disposition: DISCHARGE HOME Condition: Stable Dionicio Gore MD September 18, 2016 01:46
[2016-09-18 02:10] VITALS: RESP 18
[2016-09-18 02:21] LABS: BASOPHIL # 0.1 TH/MM3 (0-0.2); BASOPHIL % 0.6 % (0.0-2.0); EOSINOPHIL # 0.3 TH/MM3 (0-0.4); EOSINOPHIL % 2.7 % (0.0-4.0); HEMATOCRIT 42.4 % (39.0-51.0); HEMO FLAGS DIFF FINAL; LYMPH % 34.6 % (9.0-44.0); LYMPHOCYTE # 3.8 TH/MM3 (1.0-4.8); MEAN CELL VOLUME 84.5 FL (80.0-100.0); MEAN CORPUSCULAR HEMOGLOBIN 28.3 PG (27.0-34.0); MEAN CORPUSCULAR HGB CONC 33.5 % (32.0-36.0); MONO % 7.6 % (0.0-8.0); NEUT % 54.5 % (16.0-70.0); PLATELET COUNT 231 TH/MM3 (150-450); RED BLOOD COUNT 5.02 MIL/MM3 (4.50-5.90); RED CELL DISTRIBUTION WIDTH 14.1 % (11.6-17.2)
[2016-09-18 02:31] LABS: APTT (PATIENT) 42.7 SEC (24.3-30.1); INTERNATIONAL NORMALIZED RATIO 2.4 RATIO; PROTHROMBIN TIME - PATIENT 28.1 SEC (9.8-11.6)
[2016-09-18 02:41] VITALS: BP 116/69; PULSE 67; RESP 16; O2SAT 97
[2016-09-18 02:57] LABS: ANION GAP 8 MEQ/L (5-15); AST (GOT) 28 U/L (15-37); BICARBONATE 28.9 MEQ/L (21.0-32.0); BLOOD UREA NITROGEN 13 MG/DL (7-18); CHLORIDE 103 MEQ/L (98-107); GLOMERULAR FILTRATION RATE 86 ML/MIN (>89); POTASSIUM 4.2 MEQ/L (3.5-5.1); SODIUM (NA) 140 MEQ/L (136-145)
[2016-09-18 02:58] LABS: ALKALINE PHOSPHATASE 84 U/L (45-117); ALT (GPT) 32 U/L (12-78); CREATINE KINASE 132 U/L (39-308); TOTAL BILIRUBIN ADULT 0.4 MG/DL (0.2-1.0)
[2016-09-18 03:11] LABS: CKMB 0.5 NG/ML (0.5-3.6)
[2016-09-18] MEDS ORDERED: LOPE2CAP PO (03:22)
--- NOTE | 2016-09-18 18:01 | EKG ---
Date Performed: 09/18/2016 Time Performed: 02:31:50 PTAGE: 46 years EKG: Sinus rhythm POSSIBLE RIGHT VENTRICULAR CONDUCTION DELAY NONSPECIFIC T-WAVE ABNORMALITY BORDERLINE ECG Compared t o prior tracing no significant change. PREVIOUS TRACING : 08/22/2016 02.21 DOCTOR: Stone Hou Interpretating Date/Time 09/18/2016 17:59:48
== END 2016-09-18 04:17 | disposition home or self-care (01) ==
LOC: NEPC 22:40
DX: R10.13 Epigastric pain (principal); R19.7 Diarrhea, unspecified; R94.31 Abnormal electrocardiogram [ECG] [EKG]
CPT/HCPCS: 80053; 82550; 82552; 83690; 84484; 85025; 85610; 85730; 93005

== ENCOUNTER → 2016-09-24 | Outpatient (CLI) | payer OTHER ==
[~2016-09-24] MED LIST changes: -CIPR-9 PO; -HYDR-3533 PO; +LOPE2CAP PO; -LOPE2TAB3 PO; +WARF-60 PO
[2016-09-24 14:22] LABS: INTERNATIONAL NORMALIZED RATIO 2.9 RATIO; PROTHROMBIN TIME - PATIENT 33.6 SEC (9.8-11.6)
== END ==
LOC: CLAB 13:41
PROVIDERS: ATTEND Family Medicine
DX: I82.409 Acute embolism and thrombosis of unspecified deep veins of unspecified lower extremity (principal)
CPT/HCPCS: 36415; 85610

== ENCOUNTER 2016-10-03 00:44 | Emergency (ER) | payer OTHER ==
[~2016-10-03] VITALS: Ht 170.2 cm; Wt 137.0 kg
[~2016-10-03 00:44] MED LIST changes: -WARF-60 PO
[2016-10-03 00:47] VITALS: BP 145/84; PULSE 105; RESP 16; TEMP 98.6; O2SAT 98
--- NOTE | 2016-10-03 02:38 | PD ---
HPI Chief Complaint: Syncope/Near-Syncope Time Seen by Provider: 02:18 Travel History International Travel<30 days: No Contact w/Intl Traveler<30days: No Traveled to known affect area: No History of Present Illness HPI Patient is a 46-year-old male who presents to the 4 hour history of generalized body aches including the anterior portion of his chest and abdomen as well as a cough and congestion. Patient states is dry in nature denies any fevers denies any vomiting but does endorse some nausea. States this is never happened him before. States he is diabetic and sugars been running high (300) he is supposed to take both pills and insulin but is homeless and therefore cannot do so. Denies any abdominal pain. States she's been feeling very weak. 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 ) Endocrine: Yes Gastrointestinal Disorders: No Genitourinary: No Hypertension: No Immune Disorder: No Implanted Vascular Access Dvce: No Kidney Stones: No Musculoskeletal: No Neurologic: No Psychiatric: Yes Reproductive: No Respiratory: Yes (PE) Immunizations Current: Yes Myocardial Infarction: Yes (x2) Pancreatitis: Yes Radiation Therapy: No Renal Failure: No Sleep Apnea: No Thyroid Disease: Yes PNEUMOCCOCAL Vaccine (Year): 1 Past Surgical History Abdominal Surgery: Yes (BILATERAL INGUINAL HERNIA REPAIRS x 2) AICD: No Arteriovenous Shunt: No Body Medical Devices: cardiac stent Cardiac Surgery: No Coronary Stent: Yes Ear Surgery: No Endocrine Surgery: No Eye Surgery: No Genitourinary Surgery: No Hysterectomy: No Insulin Pump: No Joint Replacement: No Neurologic Surgery: No Oral Surgery: No Pacemaker: No Thoracic Surgery: No Social History Alcohol Use: No Tobacco Use: No Substance Use: No Allergies-Medications (Allergen,Severity, Reaction): Coded Allergies: Adhesives (Verified Allergy, Severe, Hives, 10/03/16) Ibuprofen (Verified Allergy, Severe, Rash, 10/03/16) Latex (Verified Allergy, Severe, RASH, 10/03/16) Reported Meds & Prescriptions Reported Meds & Active Scripts Active Loperamide (Loperamide HCl) 2 Mg Cap 2 Mg PO Q12HR PRN One capsule after each loose stool. Not to exceed 8 capsules per day. Metformin (Metformin HCl) 1,000 Mg Tab 1,000 Mg PO BIDPC With meals Neurontin (Gabapentin) 600 Mg Tab 600 Mg PO TID Klor-Con M20 (Potassium Chloride Microencaps) 20 Meq Tab 20 Meq PO DAILY Coumadin (Warfarin) 6 Mg Tab 6 Mg PO DAILY 1 tablet on SMW, 2 tabs Tue Thurs Sat. Reported Glipizide 10 Mg Tab 10 Mg PO QID Take 30 minutes before a meal Gemfibrozil 600 Mg Tab 600 Mg PO BIDAC Take 30 minutes prior to breakfast and dinner. Review of Systems Except as stated in HPI: all other systems reviewed are Neg Physical Exam Narrative GENERAL: Well-developed well-nourished, morbidly obese sleeping soundly nontoxic appearance. SKIN: Focused skin assessment warm/dry. No rash no wound. HEAD: Atraumatic. Normocephalic. EYES: Pupils equal and round. No scleral icterus. No injection or drainage. ENT: No nasal bleeding or discharge. Mucous membranes pink and moist. NECK: Trachea midline. No JVD. CARDIOVASCULAR: Regular rate and rhythm. No murmur appreciated. RESPIRATORY: No accessory muscle use. Clear to auscultation. Breath sounds equal bilaterally. GASTROINTESTINAL: Abdomen soft, non-tender, nondistended. Hepatic and splenic margins not palpable. MUSCULOSKELETAL: No obvious deformities. No clubbing. No cyanosis. No edema. NEUROLOGICAL: Awake and alert. No obvious cranial nerve deficits. Motor grossly within normal limits. Normal speech. PSYCHIATRIC: Appropriate mood and affect; insight and judgment normal. Data Data Last Documented VS Vital Signs Date Time Temp Pulse Resp B/P Pulse Ox O2 Delivery O2 Flow Rate FiO2 10/03/16 02:58 105 16 98 Room Air 10/03/16 00:47 98.6 145/84 Orders Electrocardiogram (10/03/16 02:35) Complete Blood Count With Diff (10/03/16 02:35) Comprehensive Metabolic Panel (10/03/16 02:35) Magnesium (Mg) (10/03/16 02:35) Phosphorus (Po4) (10/03/16 02:35) Beta Hydroxybutyrate (Acetone) (10/03/16 02:35) Urinalysis - C+S If Indicated (10/03/16 02:35) Chest, Single Ap (10/03/16 02:35) Ecg Monitoring (10/03/16 02:35) Iv Access Insert/Monitor (10/03/16 02:35) Oximetry (10/03/16 02:35) NPO (10/03/16 02:35) Sodium Chloride 0.9% Flush (Ns Flush) (10/03/16 02:45) Troponin I (10/03/16 02:35) Sodium Chlor 0.9% 1000 Ml Inj (Ns 1000 M (10/03/16 02:45) Labs Laboratory Tests Test 10/03/16 03:10 White Blood Count 8.5 TH/MM3 Red Blood Count 5.02 MIL/MM3 Hemoglobin 14.2 GM/DL Hematocrit 42.7 % Mean Corpuscular Volume 85.2 FL Mean Corpuscular Hemoglobin 28.3 PG Mean Corpuscular Hemoglobin 33.2 % Concent Red Cell Distribution Width 14.2 % Platelet Count 201 TH/MM3 Mean Platelet Volume 9.0 FL Neutrophils (%) (Auto) 51.6 % Lymphocytes (%) (Auto) 34.1 % Monocytes (%) (Auto) 11.7 % Eosinophils (%) (Auto) 2.2 % Basophils (%) (Auto) 0.4 % Neutrophils # (Auto) 4.4 TH/MM3 Lymphocytes # (Auto) 2.9 TH/MM3 Monocytes # (Auto) 1.0 TH/MM3 Eosinophils # (Auto) 0.2 TH/MM3 Basophils # (Auto) 0.0 TH/MM3 CBC Comment DIFF FINAL Differential Comment Sodium Level 140 MEQ/L Potassium Level 4.5 MEQ/L Chloride Level 102 MEQ/L Carbon Dioxide Level 30.6 MEQ/L Anion Gap 7 MEQ/L Blood Urea Nitrogen 21 MG/DL Creatinine 1.09 MG/DL Estimat Glomerular Filtration 72 ML/MIN Rate Random Glucose 233 MG/DL Calcium Level 9.1 MG/DL Phosphorus Level 3.5 MG/DL Magnesium Level 2.1 MG/DL Total Bilirubin 0.3 MG/DL Aspartate Amino Transf 32 U/L (AST/SGOT) Alanine Aminotransferase 39 U/L (ALT/SGPT) Alkaline Phosphatase 106 U/L Troponin I LESS THAN 0.02 NG/ML Total Protein 7.1 GM/DL Albumin 3.5 GM/DL B-Hydroxybutyrate 0.20 MMOL/L MDM Medical Decision Making Medical Screen Exam Complete: Yes Emergency Medical Condition: Yes Interpretation(s) EKG shows normal sinus rhythm normal axis normal R-wave progression. No concerning ST-T changes. Intervals within normal limits. Normal EKG. Differential Diagnosis ACS unlikely AMI unlikely, pneumonia unlikely, dehydration, DKA unlikely Narrative Course Patient roomed in emergency department, initial workup including EKG chest x- ray and labs was reassuring. Patient is hyperglycemic. He appears well he has slept soundly in the emergency department for many hours. He is homeless. There is no indication further workup at this time. He is stable for discharge. Diagnosis Primary Impression: Hyperglycemia due to type 2 diabetes mellitus Qualified Code: E11.65 - Type 2 diabetes mellitus with hyperglycemia, unspecified joint terminal attack controller insulin use status Disposition: 01 DISCHARGE HOME Condition: Stable Andrés Herrmann MD October 03, 2016 02:38
[2016-10-03] MEDS ORDERED: SODIUM CHLORIDE 0.9% FLUSH 10 ML FLUSH IVF PRN (02:45)
[2016-10-03] MEDS ORDERED: SODIUM CHLOR 0.9% 1000 ML INJ 1,000 ML IV ONE (02:45)
[2016-10-03 03:25] LABS: AUTOMATED NEUTROPHIL # 4.4 TH/MM3 (1.8-7.7); BASOPHIL % 0.4 % (0.0-2.0); EOSINOPHIL # 0.2 TH/MM3 (0-0.4); EOSINOPHIL % 2.2 % (0.0-4.0); HEMATOCRIT 42.7 % (39.0-51.0); HEMO FLAGS DIFF FINAL; LYMPH % 34.1 % (9.0-44.0); LYMPHOCYTE # 2.9 TH/MM3 (1.0-4.8); MEAN CELL VOLUME 85.2 FL (80.0-100.0); MEAN CORPUSCULAR HEMOGLOBIN 28.3 PG (27.0-34.0); MEAN CORPUSCULAR HGB CONC 33.2 % (32.0-36.0); MONO % 11.7 % (0.0-8.0); NEUT % 51.6 % (16.0-70.0); PLATELET COUNT 201 TH/MM3 (150-450); RED BLOOD COUNT 5.02 MIL/MM3 (4.50-5.90); RED CELL DISTRIBUTION WIDTH 14.2 % (11.6-17.2); WHITE BLOOD COUNT 8.5 TH/MM3 (4.0-11.0)
--- NOTE | 2016-10-03 03:28 | RADRPT ---
EXAM DATE/TIME: 10/03/2016 02:45 [facility] COMPARISON: No previous studies available for comparison. INDICATIONS : Short of breath, weakness, body pains. MEDICAL HISTORY : Diabetes mellitus type I. SURGICAL HISTORY : None. ENCOUNTER: Initial ACUITY: 1 day PAIN SCORE: 7/10 LOCATION: Bilateral chest FINDINGS: A single view of the chest demonstrates mild basilar density probably subsegmental atelectasis. No ef fusion. The cardiomediastinal contours are unremarkable. Osseous structures are intact. CONCLUSION: 1. Mild basilar density, probably subsegmental atelectasis. No effusion or pneumothorax. Viet Reed MD on October 03, 2016 at 3:25 Board Certified Radiologist. This report was verified electronically.
[2016-10-03 03:38] LABS: ANION GAP 7 MEQ/L (5-15); AST (GOT) 32 U/L (15-37); BICARBONATE 30.6 MEQ/L (21.0-32.0); BLOOD UREA NITROGEN 21 MG/DL (7-18); CHLORIDE 102 MEQ/L (98-107); GLOMERULAR FILTRATION RATE 72 ML/MIN (>89); MAGNESIUM 2.1 MG/DL (1.5-2.5); POTASSIUM 4.5 MEQ/L (3.5-5.1); SODIUM (NA) 140 MEQ/L (136-145)
[2016-10-03 03:43] LABS: ALKALINE PHOSPHATASE 106 U/L (45-117); ALT (GPT) 39 U/L (12-78); TOTAL BILIRUBIN ADULT 0.3 MG/DL (0.2-1.0)
[2016-10-03] MEDS ORDERED: GLIP10TA6 PO ×2 (15:00→15:19)
--- NOTE | 2016-10-03 21:01 | EKG ---
Date Performed: 10/03/2016 Time Performed: 03:12:40 PTAGE: 46 years EKG: Sinus rhythm NONSPECIFIC T-WAVE ABNORMALITY BORDERLINE ECG NO PREVIOUS TRACING DOCTOR: Charles Oliver Interpretating Date/Time 10/03/2016 20:59:46
== END 2016-10-03 07:30 | disposition home or self-care (01) ==
LOC: NEPE 00:44
DX: E11.65 Type 2 diabetes mellitus with hyperglycemia (principal); R94.31 Abnormal electrocardiogram [ECG] [EKG]; J45.909 Unspecified asthma, uncomplicated; Z79.01 Long term (current) use of anticoagulants
CPT/HCPCS: 71010; 80053; 82010; 83735; 84100; 84484; 85025; 93005; 99285; J7030

== ENCOUNTER 2016-10-03 07:33 | Emergency (ER) | payer OTHER ==
[~2016-10-03] VITALS: Ht 177.8 cm; Wt 170.0 kg
[2016-10-03 07:35] VITALS: BP 126/84; PULSE 96; RESP 16; TEMP 97.8; O2SAT 96
--- NOTE | 2016-10-03 08:07 | PD ---
HPI Chief Complaint: Cold / Flu Symptoms Time Seen by Provider: 08:00 Travel History International Travel<30 days: No Contact w/Intl Traveler<30days: No Traveled to known affect area: No History of Present Illness HPI This patient was discharged from the ER and then he went out to triage and immediately signed back in. He didn't even leave the building. He has some vague complaints but no cohesive chief complaint. He says he was concerned that he didn't get prescribed antibiotics. His symptoms are Mild PFSH Past Medical History Hx Anticoagulant Therapy: Yes Asthma: Yes Autoimmune Disease: No Anxiety: Yes Depression: Yes Heart Rhythm Problems: No Cancer: No Cardiac Catheterization: Yes (X 1) Cardiovascular Problems: Yes High Cholesterol: Yes Chemotherapy: No Chest Pain: Yes Congestive Heart Failure: No COPD: No Cerebrovascular Accident: No Diabetes: Yes Diminished Hearing: No Deep Vein Thrombosis: Yes (DVT AND PE'S. ) Endocrine: Yes (HYPOTHYROID) Gastrointestinal Disorders: No Genitourinary: No Hypertension: No Immune Disorder: No Implanted Vascular Access Dvce: No Kidney Stones: No Musculoskeletal: No Neurologic: No Psychiatric: Yes Reproductive: No Respiratory: Yes (PE) Immunizations Current: Yes Myocardial Infarction: Yes (x2) Pancreatitis: Yes Radiation Therapy: No Renal Failure: No Sleep Apnea: No Thyroid Disease: Yes PNEUMOCCOCAL Vaccine (Year): 1 Past Surgical History Abdominal Surgery: Yes (BILATERAL INGUINAL HERNIA REPAIRS x 2) AICD: No Arteriovenous Shunt: No Body Medical Devices: cardiac stent Cardiac Surgery: No Coronary Stent: Yes Ear Surgery: No Endocrine Surgery: No Eye Surgery: No Genitourinary Surgery: No Hysterectomy: No Insulin Pump: No Joint Replacement: No Neurologic Surgery: No Oral Surgery: No Pacemaker: No Thoracic Surgery: No Social History Alcohol Use: No Tobacco Use: No Substance Use: No Allergies-Medications (Allergen,Severity, Reaction): Coded Allergies: Adhesives (Verified Allergy, Severe, Hives, 10/03/16) Ibuprofen (Verified Allergy, Severe, Rash, 10/03/16) Latex (Verified Allergy, Severe, RASH, 10/03/16) Reported Meds & Prescriptions Reported Meds & Active Scripts Active Loperamide (Loperamide HCl) 2 Mg Cap 2 Mg PO Q12HR PRN One capsule after each loose stool. Not to exceed 8 capsules per day. Metformin (Metformin HCl) 1,000 Mg Tab 1,000 Mg PO BIDPC With meals Neurontin (Gabapentin) 600 Mg Tab 600 Mg PO TID Klor-Con M20 (Potassium Chloride Microencaps) 20 Meq Tab 20 Meq PO DAILY Coumadin (Warfarin) 6 Mg Tab 6 Mg PO DAILY 1 tablet on SMW, 2 tabs Tue Thurs Sat. Reported Glipizide 10 Mg Tab 10 Mg PO QID Take 30 minutes before a meal Gemfibrozil 600 Mg Tab 600 Mg PO BIDAC Take 30 minutes prior to breakfast and dinner. Review of Systems General / Constitutional: No: Fever HENT: No: Headaches Cardiovascular: No: Chest Pain or Discomfort Gastrointestinal: No: Vomiting Physical Exam Narrative RESPIRATORY: Respiratory effort unlabored, no retractions or use of accessory muscles. Breath sounds are clear and symmetric. NECK: Symmetrical appearance, midline trachea. No mass or crepitus. Thyroid without enlargement, tenderness, or mass. Throat clear Data Data Last Documented VS Vital Signs Date Time Temp Pulse Resp B/P Pulse Ox O2 Delivery O2 Flow Rate FiO2 10/03/16 07:35 97.8 96 16 126/84 96 MDM Medical Decision Making Medical Screen Exam Complete: Yes Emergency Medical Condition: Yes Medical Record Reviewed: Yes Differential Diagnosis Malingering, bronchitis, URI Narrative Course I have reviewed the patient's electronic medical record. Reviewed his visit from a few hours ago including lab studies and chest x-ray results Presentation most consistent with viral URI/bronchitis There is no indication for antibiotics which I explained to the patient He should follow up with primary care physician Diagnosis Primary Impression: Acute viral bronchitis Additional Instructions: The patient was advised to follow up with their physician and return if they worsen. Med/Other Pt SpecificInfo: Other Disposition: 01 DISCHARGE HOME Condition: Stable Melquiades Montenegro MD October 03, 2016 08:07
[2016-10-03] MEDS ORDERED: GLIP10TA6 PO ×2 (15:00→15:19)
== END 2016-10-03 08:20 | disposition home or self-care (01) ==
LOC: NEPE 07:33
DX: J20.8 Acute bronchitis due to other specified organisms (principal); J45.909 Unspecified asthma, uncomplicated; E11.9 Type 2 diabetes mellitus without complications; Z79.01 Long term (current) use of anticoagulants
CPT/HCPCS: 99282

== ENCOUNTER 2016-10-17 09:05 | Emergency (ER) | payer OTHER ==
[~2016-10-17] VITALS: Ht 175.3 cm; Wt 136.0 kg
[2016-10-17 09:11] VITALS: BP 163/83; PULSE 93; RESP 18; TEMP 98.1; O2SAT 95
[2016-10-17] MEDS ORDERED: WARF-60 PO ×2 (09:23)
[2016-10-17 09:31] VITALS: BP 135/71; PULSE 91; RESP 12; TEMP 97.5; O2SAT 96
--- NOTE | 2016-10-17 09:42 | PD ---
HPI Chief Complaint: Chest Pain Time Seen by Provider: 09:14 Travel History International Travel<30 days: No Contact w/Intl Traveler<30days: No Traveled to known affect area: No History of Present Illness HPI This patient complains of chest pain. He has chest pain in the right lower and left lower chest. Started at 7 AM this morning. Was present when he woke up. No injury. No shortness of breath or fever or cough. Feels like someone hit him with a baseball bat he says. Duration is 2.5 hours. Severity is moderate. 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 ) Endocrine: Yes (HYPOTHYROID) Gastrointestinal Disorders: No Genitourinary: No Hypertension: No Immune Disorder: No Implanted Vascular Access Dvce: No Kidney Stones: No Musculoskeletal: No Neurologic: No Psychiatric: Yes Reproductive: No Respiratory: Yes (PE) Immunizations Current: Yes Myocardial Infarction: Yes (x2) Pancreatitis: Yes Radiation Therapy: No Renal Failure: No Sleep Apnea: No Thyroid Disease: Yes Influenza Vaccination: Yes PNEUMOCCOCAL Vaccine (Year): 1 Past Surgical History Abdominal Surgery: Yes (BILATERAL INGUINAL HERNIA REPAIRS x 2) AICD: No Arteriovenous Shunt: No Body Medical Devices: cardiac stent Cardiac Surgery: No Coronary Stent: Yes Ear Surgery: No Endocrine Surgery: No Eye Surgery: No Genitourinary Surgery: No Hysterectomy: No Insulin Pump: No Joint Replacement: No Neurologic Surgery: No Oral Surgery: No Pacemaker: No Thoracic Surgery: No Social History Alcohol Use: No Tobacco Use: No Substance Use: No Allergies-Medications (Allergen,Severity, Reaction): Coded Allergies: Adhesives (Verified Allergy, Severe, Hives, 10/17/16) Ibuprofen (Verified Allergy, Severe, Rash, 10/17/16) Latex (Verified Allergy, Severe, RASH, 10/17/16) Reported Meds & Prescriptions Reported Meds & Active Scripts Active Glipizide 10 Mg Tab 10 Mg PO QID Take 30 minutes before a meal Loperamide (Loperamide HCl) 2 Mg Cap 2 Mg PO Q12HR PRN One capsule after each loose stool. Not to exceed 8 capsules per day. Metformin (Metformin HCl) 1,000 Mg Tab 1,000 Mg PO BIDPC With meals Neurontin (Gabapentin) 600 Mg Tab 600 Mg PO TID Klor-Con M20 (Potassium Chloride Microencaps) 20 Meq Tab 20 Meq PO DAILY Reported Warfarin 6 Mg Tab 12 Mg PO TUTHSA Warfarin 6 Mg Tab 6 Mg PO SUMOWEFR Gemfibrozil 600 Mg Tab 600 Mg PO BIDAC Take 30 minutes prior to breakfast and dinner. Review of Systems General / Constitutional: No: Fever Eyes: No: Visual changes HENT: No: Headaches Cardiovascular: Positive: Chest Pain or Discomfort Respiratory: No: Shortness of Breath Gastrointestinal: No: Abdominal Pain Genitourinary: No: Dysuria Musculoskeletal: No: Pain Skin: No Rash Neurologic: No: Weakness Psychiatric: No: Depression Endocrine: No: Polydipsia Hematologic/Lymphatic: No: Easy Bruising Physical Exam Narrative GENERAL: Well-nourished, well-developed patient in no apparent distress. SKIN: Focused skin assessment reveals no rash and nodules. Skin is Warm and dry. HEAD: Atraumatic. Normocephalic. EYES: Pupils equal and round. No scleral icterus. No injection or drainage. ENT: No nasal bleeding or discharge. Mucous membranes pink and moist. NECK: Trachea midline. No JVD. CARDIOVASCULAR: Regular rate and rhythm. No murmur appreciated. RESPIRATORY: No accessory muscle use. Clear to auscultation. Breath sounds equal bilaterally. GASTROINTESTINAL: Abdomen soft, obese, non-tender, nondistended. Hepatic and splenic margins not palpable. MUSCULOSKELETAL: No obvious deformities. No clubbing. No cyanosis. No edema. Has readily reproducible chest wall tenderness in both right and left rib cage. It replicates his chest pain complaint. There is no crepitus or bruising there. NEUROLOGICAL: Awake and alert. No obvious cranial nerve deficits. Motor grossly within normal limits. Normal speech. PSYCHIATRIC: Appropriate mood and affect; insight and judgment normal. Data Data Last Documented VS Vital Signs Date Time Temp Pulse Resp B/P Pulse Ox O2 Delivery O2 Flow Rate FiO2 10/17/16 09:47 97 Room Air 10/17/16 09:31 97.5 91 12 135/71 Orders Electrocardiogram (6/2/17 09:32) Basic Metabolic Panel (Bmp) (10/17/16 09:32) Ckmb (Isoenzyme) Profile (10/17/16 09:32) Complete Blood Count With Diff (10/17/16 09:32) Troponin I (10/17/16 09:32) Ecg Monitoring (10/17/16 09:32) Iv Access Insert/Monitor (10/17/16 09:32) Oximetry (10/17/16 09:32) Sodium Chloride 0.9% Flush (Ns Flush) (10/17/16 09:45) CKMB (10/17/16 09:35) CKMB% (10/17/16 09:35) Labs Laboratory Tests Test 10/17/16 09:35 White Blood Count 9.7 TH/MM3 Red Blood Count 5.14 MIL/MM3 Hemoglobin 15.0 GM/DL Hematocrit 43.7 % Mean Corpuscular Volume 85.1 FL Mean Corpuscular Hemoglobin 29.1 PG Mean Corpuscular Hemoglobin 34.2 % Concent Red Cell Distribution Width 14.3 % Platelet Count 263 TH/MM3 Mean Platelet Volume 8.8 FL Neutrophils (%) (Auto) 58.3 % Lymphocytes (%) (Auto) 30.7 % Monocytes (%) (Auto) 7.7 % Eosinophils (%) (Auto) 2.8 % Basophils (%) (Auto) 0.5 % Neutrophils # (Auto) 5.7 TH/MM3 Lymphocytes # (Auto) 3.0 TH/MM3 Monocytes # (Auto) 0.7 TH/MM3 Eosinophils # (Auto) 0.3 TH/MM3 Basophils # (Auto) 0.1 TH/MM3 CBC Comment DIFF FINAL Differential Comment Sodium Level 137 MEQ/L Potassium Level 4.2 MEQ/L Chloride Level 104 MEQ/L Carbon Dioxide Level 23.6 MEQ/L Anion Gap 9 MEQ/L Blood Urea Nitrogen 16 MG/DL Creatinine 0.98 MG/DL Estimat Glomerular Filtration 82 ML/MIN Rate Random Glucose 306 MG/DL Calcium Level 8.6 MG/DL Total Creatine Kinase 119 U/L Creatine Kinase MB 0.5 NG/ML Troponin I LESS THAN 0.02 NG/ML MDM Medical Decision Making Medical Screen Exam Complete: Yes Emergency Medical Condition: Yes Medical Record Reviewed: Yes Differential Diagnosis Differential diagnosis includes NV, angina, pericarditis, pleurisy, GERD, anxiety. Narrative Course I have reviewed the patient's electronic medical record. Patient was here twice in the last few weeks with bronchitis symptoms IV placed I reviewed the EKG which shows sinus rhythm with no ST elevation Extended cardiac monitoring shows sinus rhythm without ectopy CBC is normal Metabolic profile shows hyperglycemia CK is normal Troponin is normal This patient has clear-cut chest wall musculoskeletal pain. Will not require inpatient evaluation ordered and stress testing. He does have risk factors for CAD and should discuss this with his physician. He is a noncompliant diabetic who is morbidly obese. Accu-Chek 325. He is supposed to take insulin but he just stopped it himself. He says his sugar always runs around 300. When I went back to recheck the patient he is sound asleep. He is stable for outpatient follow-up I recommended he get back on his insulin and be compliant with his diabetes and follow-up with his primary care physician Diagnosis Primary Impression: Musculoskeletal chest pain Additional Impression: Hyperglycemia due to type 2 diabetes mellitus Qualified Code: E11.65 - Type 2 diabetes mellitus with hyperglycemia, without long-term current use of insulin Departure Forms: Tests/Procedures Additional Instructions: The patient was advised to follow up with their physician and return if they worsen. Be compliant with diabetes care Med/Other Pt SpecificInfo: Other Disposition: 01 DISCHARGE HOME Condition: Stable Melquiades Montenegro MD Oct 17, 2016 09:42
[2016-10-17] MEDS ORDERED: SODIUM CHLORIDE 0.9% FLUSH 10 ML FLUSH IVF PRN (09:45)
[2016-10-17 09:47] VITALS: O2SAT 97
[2016-10-17 09:47] LABS: AUTOMATED NEUTROPHIL # 5.7 TH/MM3 (1.8-7.7); BASOPHIL # 0.1 TH/MM3 (0-0.2); BASOPHIL % 0.5 % (0.0-2.0); EOSINOPHIL # 0.3 TH/MM3 (0-0.4); EOSINOPHIL % 2.8 % (0.0-4.0); HEMATOCRIT 43.7 % (39.0-51.0); HEMO FLAGS DIFF FINAL; LYMPH % 30.7 % (9.0-44.0); MEAN CELL VOLUME 85.1 FL (80.0-100.0); MEAN CORPUSCULAR HEMOGLOBIN 29.1 PG (27.0-34.0); MEAN CORPUSCULAR HGB CONC 34.2 % (32.0-36.0); MONO % 7.7 % (0.0-8.0); NEUT % 58.3 % (16.0-70.0); PLATELET COUNT 263 TH/MM3 (150-450); RED BLOOD COUNT 5.14 MIL/MM3 (4.50-5.90); RED CELL DISTRIBUTION WIDTH 14.3 % (11.6-17.2); WHITE BLOOD COUNT 9.7 TH/MM3 (4.0-11.0)
[2016-10-17 10:18] LABS: ANION GAP 9 MEQ/L (5-15); BICARBONATE 23.6 MEQ/L (21.0-32.0); BLOOD UREA NITROGEN 16 MG/DL (7-18); CHLORIDE 104 MEQ/L (98-107); CREATINE KINASE 119 U/L (39-308); GLOMERULAR FILTRATION RATE 82 ML/MIN (>89); SODIUM (NA) 137 MEQ/L (136-145)
[2016-10-17 10:19] LABS: POTASSIUM 4.2 MEQ/L (3.5-5.1)
[2016-10-17 10:32] LABS: CKMB 0.5 NG/ML (0.5-3.6)
--- NOTE | 2016-10-18 14:48 | EKG ---
Date Performed: 10/17/2016 Time Performed: 09:22:51 PTAGE: 46 years EKG: Sinus rhythm NONSPECIFIC T-WAVE ABNORMALITY Compared to prior tracing no significant change BORDERLINE ECG PREVIOUS TRACING : 10/03/2016 03.12 DOCTOR: Ko Hartley Interpretating Date/Time 10/18/2016 14:47:10
== END 2016-10-17 11:58 | disposition home or self-care (01) ==
LOC: NEPC 09:05
DX: R07.89 Other chest pain (principal); E11.65 Type 2 diabetes mellitus with hyperglycemia; E03.9 Hypothyroidism, unspecified; I25.2 Old myocardial infarction; I25.10 Atherosclerotic heart disease of native coronary artery without angina pectoris; Z79.01 Long term (current) use of anticoagulants; Z79.84 Long term (current) use of oral hypoglycemic drugs
CPT/HCPCS: 80048; 82550; 82552; 84484; 85025; 93005; 99284

== ENCOUNTER 2016-12-13 00:37 | Emergency (ER) | payer OTHER ==
[~2016-12-13] VITALS: Ht 172.7 cm; Wt 145.5 kg
[~2016-12-13 00:37] MED LIST changes: -COUM6TAB PO; +WARF-60 PO
[2016-12-13 00:39] VITALS: BP 159/78; PULSE 97; RESP 18; TEMP 98.4; O2SAT 98
[2016-12-13] MEDS ORDERED: CARBAMIDE PEROXIDE 6.5% OTIC SOLN 15 ML BTL LEFT EAR ONE (02:00)
--- NOTE | 2016-12-13 02:40 | PD ---
HPI Chief Complaint: ENT Complaint Time Seen by Provider: 01:58 Travel History International Travel<30 days: No Contact w/Intl Traveler<30days: No Traveled to known affect area: No History of Present Illness HPI 46-year-old male reports 2 days of left ear pain. Patient states he uses ear buds to listen to music and has noted increased discomfort to the ear since that time. Patient's concerned that he may have a bug in his ear. Patient denies other concerns or complaints. There is been no drainage from his ear no bleeding from his ear. Patient rates pain as 7/10 intensity. PFSH Past Medical History Narrative Medical CAD DC PE DVT diabetes; coronary stent herniorrhaphy; no tobacco use; nursing notes reviewed Hx Anticoagulant Therapy: Yes (Warfarin) Asthma: Yes Autoimmune Disease: No Anxiety: Yes Depression: Yes Heart Rhythm Problems: No Cancer: No Cardiac Catheterization: Yes (X 1) Cardiovascular Problems: Yes (MIx3) High Cholesterol: Yes Chemotherapy: No Chest Pain: Yes Congestive Heart Failure: No COPD: No Cerebrovascular Accident: No Coronary Artery Disease: Yes Diabetes: Yes Patient Takes Glucophage: Yes Diminished Hearing: No Deep Vein Thrombosis: Yes (DVT AND PE'S. ) Endocrine: Yes (HYPOTHYROID) Gastrointestinal Disorders: No Genitourinary: No Hypertension: No Immune Disorder: No Implanted Vascular Access Dvce: No Kidney Stones: No Musculoskeletal: No Neurologic: No Psychiatric: Yes Reproductive: No Respiratory: Yes (PEx1) Immunizations Current: Yes Myocardial Infarction: Yes (x2) Pancreatitis: Yes Radiation Therapy: No Renal Failure: No Sleep Apnea: No Thyroid Disease: Yes PNEUMOCCOCAL Vaccine (Year): 1 Past Surgical History Abdominal Surgery: Yes (BILATERAL INGUINAL HERNIA REPAIRS x 2) AICD: No Arteriovenous Shunt: No Body Medical Devices: cardiac stent Cardiac Surgery: No Coronary Stent: Yes Ear Surgery: No Endocrine Surgery: No Eye Surgery: No Genitourinary Surgery: No Hysterectomy: No Insulin Pump: No Joint Replacement: No Neurologic Surgery: No Oral Surgery: No Pacemaker: No Thoracic Surgery: No Social History Alcohol Use: No Tobacco Use: No Substance Use: No Allergies-Medications (Allergen,Severity, Reaction): Coded Allergies: Adhesives (Verified Allergy, Severe, Hives, 12/13/16) Ibuprofen (Verified Allergy, Severe, Rash, 12/13/16) Latex (Verified Allergy, Severe, RASH, 12/13/16) Reported Meds & Prescriptions Reported Meds & Active Scripts Active Lortab (Hydrocodone-Acetaminophen) 5-325 Mg Tab 1 Tab PO Q6H PRN Ciprodex Otic Drops (Ciprofloxacin-Dexamethasone Otic Drops) 0.3-0.1% Susp 4 Drop LEFT EAR BID Neurontin (Gabapentin) 600 Mg Tab 600 Mg PO TID Warfarin 6 Mg Tab 12 Mg PO TUTHSA 30 Days Warfarin 6 Mg Tab 6 Mg PO SUMOWEFR Glipizide 10 Mg Tab 10 Mg PO QID Take 30 minutes before a meal Loperamide (Loperamide HCl) 2 Mg Cap 2 Mg PO Q12HR PRN One capsule after each loose stool. Not to exceed 8 capsules per day. Metformin (Metformin HCl) 1,000 Mg Tab 1,000 Mg PO BIDPC With meals Klor-Con M20 (Potassium Chloride Microencaps) 20 Meq Tab 20 Meq PO DAILY Reported Gemfibrozil 600 Mg Tab 600 Mg PO BIDAC Take 30 minutes prior to breakfast and dinner. Review of Systems Except as stated in HPI: all other systems reviewed are Neg Physical Exam Narrative GENERAL: Well-developed obese male in no acute distress no respiratory distress SKIN: Warm and dry. HEAD: Normocephalic. EYES: No scleral icterus. No injection or drainage. ENT: Mucous members moist airway is patent left tympanic membrane is obscured by cerumen no evidence of bug or other foreign body NECK: Supple, trachea midline. No JVD or lymphadenopathy. Data Data Last Documented VS Vital Signs Date Time Temp Pulse Resp B/P Pulse Ox O2 Delivery O2 Flow Rate FiO2 12/13/16 00:39 98.4 97 18 159/78 98 Room Air Orders Carbamide Peroxide 6.5% Otic (Debrox 6.5 (12/13/16 02:00) Ear Irrigation (12/13/16 01:58) MDM Medical Decision Making Medical Screen Exam Complete: Yes Emergency Medical Condition: Yes Medical Record Reviewed: Yes Differential Diagnosis Otitis media otitis externa cerumen impaction foreign body external auditory canal otalgia Narrative Course Debrox instilled into the left external auditory canal with ear irrigation ordered Patient with some improvement and removal of cerumen however residual cerumen remains noted in left external auditory canal; patient with area of facial abrasion and mild soft tissue edema will start patient on antibiotic eardrops Patient is encouraged to follow-up with ENT. Diagnosis Primary Impression: Cerumen impaction Qualified Code: H61.22 - Impacted cerumen of left ear Additional Impression: Otitis externa Qualified Code: H60.502 - Acute otitis externa of left ear, unspecified type Referrals: Ear / Nose / Throat Specialist 3 days Patient Instructions: General Instructions Additional Instructions: Apply eardrops as prescribed twice daily Return to the emergency for for any concerns or change in condition Follow-up with primary care provider Follow-up with web search evaluator Monitor temperature for fever take acetaminophen/Tylenol every 4 hours as needed for fever 100.4F or greater Med/Other Pt SpecificInfo: Prescription(s) given Scripts Hydrocodone-Acetaminophen (Lortab)5-325 Mg Tab1 Tab PO Q6H PRN (PAIN) #6 TAB Ref 0 Prov:Татьяна Franks MD 12/13/16 Ciprofloxacin-Dexamethasone Otic Drops (Ciprodex Otic Drops)0.3-0.1% Susp4 Drop LEFT EAR BID #1 BOTTLE Ref 0 Prov:Татьяна Franks MD 12/13/16 Disposition: 01 DISCHARGE HOME Condition: Stable Татьяна Franks MD Dec 13, 2016 02:39
[2016-12-13] MEDS ORDERED: CIPR0.3S LEFT EAR (04:40)
[2016-12-13] MEDS ORDERED: HYDR-3533 PO (04:41)
== END 2016-12-13 05:11 | disposition home or self-care (01) ==
LOC: NEPC 00:37
DX: H61.22 Impacted cerumen, left ear (principal); H60.92 Unspecified otitis externa, left ear; J45.909 Unspecified asthma, uncomplicated; I25.10 Atherosclerotic heart disease of native coronary artery without angina pectoris; E11.9 Type 2 diabetes mellitus without complications; E78.00 Pure hypercholesterolemia, unspecified; K85.90 Acute pancreatitis without necrosis or infection, unspecified; E03.9 Hypothyroidism, unspecified; Z86.718 Personal history of other venous thrombosis and embolism
CPT/HCPCS: 99283

== ENCOUNTER 2016-12-16 00:25 | Observation (INO) | payer OTHER ==
[2016-12-16] VITALS (8 sets, daily range): BP systolic 122–141; BP diastolic 65–78; PULSE 84–95; RESP 16–18; TEMP 97.8–98; O2SAT 94–98
[~2016-12-16 00:25] MED LIST changes: +CIPR0.3S LEFT EAR; +HYDR-3533 PO
--- NOTE | 2016-12-16 02:41 | PD ---
HPI Chief Complaint: Headache Time Seen by Provider: 02:03 Travel History International Travel<30 days: No Contact w/Intl Traveler<30days: No Traveled to known affect area: No History of Present Illness HPI The patient is a 46 year old male who presents to the [facility] emergency department with a history of cerumen impaction treated 2 days ago. Since then he has had a headache, lightheaded sensation, dizziness. He reports having two episodes of passing out while sitting, once for 1 hour and another time for 4 hours. He reports that he woke up and the car both times. He reports that he was able to pull off into a parking lot each time. The patient reports having a history of 3 prior myocardial infarctions, with a cardiac stent placed at this facility previously. The patient reports that he has short-term memory problems and is unsure when he last had a stress test. The patient reports having intermittent chest tightness bilaterally associated with shortness of breath. He has difficulty defining how long the pains last and alleviating or aggravating factors. He reports having a sensation of head congestion, however he denies having any nasal discharge. He reports that he was given a prescription for an ear drop at discharge, however he has not had a chance to fill the prescription yet. On review of systems, the patient denies any recent fevers, cough, neck stiffness, abdominal pain, vomiting, diarrhea, urinary symptoms, or neurologic symptoms. The patient reports having nausea. [facility] Past Medical History Narrative Medical The patient's past medical history is reportedly significant for multiple prior DVTs, and PEs, chronically anticoagulated on warfarin and anxiety disorder, hyperlipidemia, diabetes mellitus, morbid obesity, history of the chronic pain syndrome, hypothyroid disorder, asthma, hypertriglyceridemia, pancreatitis. The patient reports a history of having 3 prior MIs at this facility. I do see evidence of his troponin being elevated with a pulmonary embolism and the electronic medical record previously. He did undergo a stress test that was abnormal. He then underwent a cardiac catheterization which according to the record had normal coronary arteries, no stents were placed. This was done in 2013. Hx Anticoagulant Therapy: Yes (Warfarin) Asthma: Yes Autoimmune Disease: No Anxiety: Yes Depression: Yes Heart Rhythm Problems: No Cancer: No Cardiac Catheterization: Yes (X 1) Cardiovascular Problems: Yes (MIx3) High Cholesterol: Yes Chemotherapy: No Chest Pain: Yes Congestive Heart Failure: No COPD: No Cerebrovascular Accident: No Coronary Artery Disease: Yes Diabetes: Yes Diminished Hearing: No Deep Vein Thrombosis: Yes (DVT AND PE'S. ) Endocrine: Yes (HYPOTHYROID) Gastrointestinal Disorders: No Genitourinary: No Hypertension: No Immune Disorder: No Implanted Vascular Access Dvce: No Kidney Stones: No Musculoskeletal: No Neurologic: No Psychiatric: Yes Reproductive: No Respiratory: Yes (PEx1) Immunizations Current: Yes Myocardial Infarction: Yes (x2) Pancreatitis: Yes Radiation Therapy: No Renal Failure: No Sleep Apnea: No Thyroid Disease: Yes PNEUMOCCOCAL Vaccine (Year): 1 Past Surgical History Narrative Surgical The patient's past surgical history is significant for bilateral inguinal hernia repairs. Abdominal Surgery: Yes (BILATERAL INGUINAL HERNIA REPAIRS x 2) AICD: No Arteriovenous Shunt: No Body Medical Devices: cardiac stent Cardiac Surgery: No Coronary Stent: Yes Ear Surgery: No Endocrine Surgery: No Eye Surgery: No Genitourinary Surgery: No Hysterectomy: No Insulin Pump: No Joint Replacement: No Neurologic Surgery: No Oral Surgery: No Pacemaker: No Thoracic Surgery: No Social History Alcohol Use: No Tobacco Use: No Substance Use: No Allergies-Medications (Allergen,Severity, Reaction): Coded Allergies: Adhesives (Verified Allergy, Severe, Hives, 12/13/16) Ibuprofen (Verified Allergy, Severe, Rash, 12/13/16) Latex (Verified Allergy, Severe, RASH, 12/13/16) Reported Meds & Prescriptions Reported Meds & Active Scripts Active Lortab (Hydrocodone-Acetaminophen) 5-325 Mg Tab 1 Tab PO Q6H PRN Ciprodex Otic Drops (Ciprofloxacin-Dexamethasone Otic Drops) 0.3-0.1% Susp 4 Drop LEFT EAR BID Neurontin (Gabapentin) 600 Mg Tab 600 Mg PO TID Warfarin 6 Mg Tab 12 Mg PO TUTHSA 30 Days Warfarin 6 Mg Tab 6 Mg PO SUMOWEFR Glipizide 10 Mg Tab 10 Mg PO QID Take 30 minutes before a meal Loperamide (Loperamide HCl) 2 Mg Cap 2 Mg PO Q12HR PRN One capsule after each loose stool. Not to exceed 8 capsules per day. Metformin (Metformin HCl) 1,000 Mg Tab 1,000 Mg PO BIDPC With meals Klor-Con M20 (Potassium Chloride Microencaps) 20 Meq Tab 20 Meq PO DAILY Reported Gemfibrozil 600 Mg Tab 600 Mg PO BIDAC Take 30 minutes prior to breakfast and dinner. Review of Systems Except as stated in HPI: all other systems reviewed are Neg General / Constitutional: No: Fever Eyes: No: Visual changes HENT: Positive: Congestion, Neck Pain, Earache, No: Headaches, Rhinorrhea, Neck Stiffness Cardiovascular: Positive: Chest Pain or Discomfort, Syncope, Dyspnea on exertion Respiratory: Positive: Shortness of Breath, No: Cough Gastrointestinal: No: Abdominal Pain Genitourinary: No: Dysuria Musculoskeletal: Positive: Myalgias, Pain Skin: No Rash Neurologic: Positive: Dizziness, Headache, No: Weakness, Focal Abnormalities, Change in Mentation, Slurred Speech, Sensory Disturbance Psychiatric: No: Depression Endocrine: No: Polydipsia Hematologic/Lymphatic: No: Easy Bruising Physical Exam Narrative General: The patient is a well-developed, morbidly obese male, in no acute distress. Sleeping soundly on my arrival to the room. Head and Neck exam: Head is normocephalic atraumatic. Eyes: EOMI, pupils are equal round and reactive to light. Nose: Midline septum with pink mucous membranes Ears: Tympanic membrane on the right is pearly with a good cone of light, no erythema or exudate. The patient's tympanic membrane on the left is difficult to visualize due to cerumen impaction. A small portion of the eardrum is able to be seen and appears to be pearly. The patient has slight inflammation of the external auditory canal noted. No swelling noted. Mouth: Dentition unremarkable. Moist mucus membranes. Posterior oropharynx is not erythematous. No tonsillar hypertrophy. Uvula midline. Airway patent. Neck: No palpable lymphadenopathy. No nuchal rigidity. No thyromegaly. Cardiovascular: Regular rate and rhythm without murmurs, gallops, or rubs. Lungs: Clear to auscultation bilaterally. No wheezes, rhonchi, or rales. Abdomen: Soft, with reported left upper quadrant abdominal discomfort on palpation that he reports causes a sensation of nausea, no other tenderness on palpation of the other quadrants of the abdomen. No guarding, rebound, or rigidity. Negative [place] sign. Normal bowel sounds are audible. Extremities: No clubbing or cyanosis. The patient has trace pedal edema on the right, 1+ on the left. The patient reports he has chronic swelling in his legs related to prior DVTs. 2+ pulses in all 4 extremities. No calf tenderness on palpation. Back: No costovertebral angle tenderness to palpation. Neurologic Exam: Grossly nonfocal. Skin Exam: No rash noted. Intact skin that is warm and dry. Data Data Last Documented VS Vital Signs Date Time Temp Pulse Resp B/P Pulse Ox O2 Delivery O2 Flow Rate FiO2 12/16/16 02:31 18 98 Room Air 12/16/16 02:31 78 12/16/16 00:28 98.0 141/78 Orders Electrocardiogram (12/16/16 02:45) Complete Blood Count With Diff (12/16/16 02:45) Comprehensive Metabolic Panel (12/16/16 02:45) Creatine Kinase (Cpk) (12/16/16 02:45) Ckmb (Isoenzyme) Profile (12/16/16 02:45) Troponin I (12/16/16 02:45) B-Type Natriuretic Peptide (12/16/16 02:45) Prothrombin Time / Inr (Pt) (12/16/16 02:45) Act Partial Throm Time (Ptt) (12/16/16 02:45) C-Reactive Protein (Crp) (12/16/16 02:45) Lipase (12/16/16 02:45) Urinalysis - C+S If Indicated (12/16/16 02:45) Magnesium (Mg) (12/16/16 02:45) Chest, Single Ap (12/16/16 02:45) Ct Brain W/O Iv Contrast(Rout) (12/16/16 02:45) Iv Access Insert/Monitor (12/16/16 02:45) Ecg Monitoring (12/16/16 02:45) Oximetry (12/16/16 02:45) CKMB (12/16/16 03:20) CKMB% (12/16/16 03:20) Admit Order (Ed Use Only) (12/16/16 04:43) Labs Laboratory Tests Test 12/16/16 03:20 White Blood Count 9.7 TH/MM3 Red Blood Count 5.12 MIL/MM3 Hemoglobin 14.5 GM/DL Hematocrit 43.4 % Mean Corpuscular Volume 84.9 FL Mean Corpuscular Hemoglobin 28.4 PG Mean Corpuscular Hemoglobin 33.5 % Concent Red Cell Distribution Width 14.7 % Platelet Count 211 TH/MM3 Mean Platelet Volume 8.1 FL Neutrophils (%) (Auto) 58.9 % Lymphocytes (%) (Auto) 29.1 % Monocytes (%) (Auto) 8.5 % Eosinophils (%) (Auto) 2.9 % Basophils (%) (Auto) 0.6 % Neutrophils # (Auto) 5.7 TH/MM3 Lymphocytes # (Auto) 2.8 TH/MM3 Monocytes # (Auto) 0.8 TH/MM3 Eosinophils # (Auto) 0.3 TH/MM3 Basophils # (Auto) 0.1 TH/MM3 CBC Comment DIFF FINAL Differential Comment Prothrombin Time 25.2 SEC Prothromb Time International 2.2 RATIO Ratio Activated Partial 42.8 SEC Thromboplast Time Sodium Level 140 MEQ/L Potassium Level 4.1 MEQ/L Chloride Level 104 MEQ/L Carbon Dioxide Level 28.8 MEQ/L Anion Gap 7 MEQ/L Blood Urea Nitrogen 15 MG/DL Creatinine 0.97 MG/DL Estimat Glomerular Filtration 83 ML/MIN Rate Random Glucose 224 MG/DL Calcium Level 9.0 MG/DL Magnesium Level 2.1 MG/DL Total Bilirubin 0.2 MG/DL Aspartate Amino Transf 17 U/L (AST/SGOT) Alanine Aminotransferase 30 U/L (ALT/SGPT) Alkaline Phosphatase 85 U/L Total Creatine Kinase 114 U/L Creatine Kinase MB 1.2 NG/ML Troponin I LESS THAN 0.02 NG/ML C-Reactive Protein 1.19 MG/DL B-Type Natriuretic Peptide 4 PG/ML Total Protein 6.9 GM/DL Albumin 3.2 GM/DL Lipase 157 U/L [facility] Medical Decision Making Medical Screen Exam Complete: Yes Emergency Medical Condition: Yes Medical Record Reviewed: Yes Interpretation(s) Last Impressions Head CT 12/16/16244 Signed Impressions: Service Date/Time: Friday, December 16, 2016 04:20 - CONCLUSION: Unremarkable noncontrast CT. Allen Turner MD Chest X-Ray 12/16/16244 Signed Impressions: Service Date/Time: Friday, December 16, 2016 02:43 - CONCLUSION: No acute disease. Allen Turner MD Differential Diagnosis Acute coronary syndrome, versus syncope related to cardiac arrhythmia, versus dizziness related to cerumen impaction, versus headache related to sinusitis, versus intracranial hemorrhage Narrative Course During the course of the patients emergency department visit, the patients history, examination, and differential diagnosis were reviewed with the patient. The patient had IV access obtained and blood work sent for analysis. The patient was placed on a bus driver/monitor with oximetry and blood pressure monitoring. The patient had an ECG done on arrival. The patient's ECG shows a sinus rhythm heart rate of 83, nonspecific T-wave abnormalities, no acute ST segment elevation, QRS duration is 91 ms, QTC 395 ms. The patient was initially provided aspirin 162 mg by mouth 1. The patients laboratory studies were reviewed and remarkable for a white count of 9.7, hemoglobin 14.5, platelets 211, 8.5 monocytes, CMP is remarkable for a glucose of 224, CPK 114, troponin I less than 0.02, C-reactive protein 1.19, BNP is 4, lipase 157 INR is 2.2, PTT 42.8. Radiology studies were reviewed and remarkable for a CT scan of the brain that shows no acute abnormality, chest x-ray shows no acute abnormality. Given the patient's reports of intermittent chest pain and shortness of breath, the patient will be admitted to the chest pain center for rule out serial cardiac enzyme protocol as he cannot recall when he last had a stress test. The patients results were discussed with the patient, including the plan of care. I explained that further testing and/ or monitoring is indicated based on the patients history, examination, and/ or laboratory findings. Therefore, I recommended admission for additional evaluation. The patient expressed understanding and was agreeable with this plan. The patient was admitted to the hospital in stable condition and sent to a bed under the care of the chest pain center. Diagnosis Primary Impression: Chest pain, rule out acute myocardial infarction Additional Impression: Left ear impacted cerumen Admitting Information Admitting Physician Requests: Observation Tracy Lr MD Dec 16, 2016 02:41
--- NOTE | 2016-12-16 03:28 | RADRPT ---
EXAM DATE/TIME: 12/16/2016 02:43 [facility] COMPARISON: CHEST SINGLE AP, August 22, 2016, 2:36. CHEST SINGLE AP, October 03, 2016, 2:45. INDICATIONS : Chest pain. MEDICAL HISTORY : Diabetes mellitus type I. SURGICAL HISTORY : None. ENCOUNTER: Subsequent ACUITY: 1 day PAIN SCORE: 0/10 LOCATION: Bilateral chest FINDINGS: A single view of the chest demonstrates the lungs to be symmetrically aerated without evidence of mas s, infiltrate or effusion. The cardiomediastinal contours are unremarkable. Osseous structures are intact. CONCLUSION: No acute disease. Allen Turner MD on December 16, 2016 at 3:26 Board Certified Radiologist. This report was verified electronically.
[2016-12-16 03:43] LABS: AUTOMATED NEUTROPHIL # 5.7 TH/MM3 (1.8-7.7); BASOPHIL # 0.1 TH/MM3 (0-0.2); BASOPHIL % 0.6 % (0.0-2.0); EOSINOPHIL # 0.3 TH/MM3 (0-0.4); EOSINOPHIL % 2.9 % (0.0-4.0); HEMATOCRIT 43.4 % (39.0-51.0); HEMO FLAGS DIFF FINAL; LYMPH % 29.1 % (9.0-44.0); LYMPHOCYTE # 2.8 TH/MM3 (1.0-4.8); MEAN CELL VOLUME 84.9 FL (80.0-100.0); MEAN CORPUSCULAR HEMOGLOBIN 28.4 PG (27.0-34.0); MEAN CORPUSCULAR HGB CONC 33.5 % (32.0-36.0); MONO % 8.5 % (0.0-8.0); NEUT % 58.9 % (16.0-70.0); PLATELET COUNT 211 TH/MM3 (150-450); RED BLOOD COUNT 5.12 MIL/MM3 (4.50-5.90); RED CELL DISTRIBUTION WIDTH 14.7 % (11.6-17.2); WHITE BLOOD COUNT 9.7 TH/MM3 (4.0-11.0)
[2016-12-16 03:55] LABS: ALT (GPT) 30 U/L (12-78); ANION GAP 7 MEQ/L (5-15); AST (GOT) 17 U/L (15-37); BICARBONATE 28.8 MEQ/L (21.0-32.0); BLOOD UREA NITROGEN 15 MG/DL (7-18); CHLORIDE 104 MEQ/L (98-107); GLOMERULAR FILTRATION RATE 83 ML/MIN (>89); MAGNESIUM 2.1 MG/DL (1.5-2.5); POTASSIUM 4.1 MEQ/L (3.5-5.1); SODIUM (NA) 140 MEQ/L (136-145)
[2016-12-16 03:58] LABS: ALKALINE PHOSPHATASE 85 U/L (45-117); CREATINE KINASE 114 U/L (39-308); TOTAL BILIRUBIN ADULT 0.2 MG/DL (0.2-1.0)
[2016-12-16 04:00] LABS: APTT (PATIENT) 42.8 SEC (24.3-30.1); INTERNATIONAL NORMALIZED RATIO 2.2 RATIO; PROTHROMBIN TIME - PATIENT 25.2 SEC (9.8-11.6)
[2016-12-16 04:10] LABS: CKMB 1.2 NG/ML (0.5-3.6)
--- NOTE | 2016-12-16 04:39 | RADRPT ---
EXAM DATE/TIME: 12/16/2016 04:20 [facility] COMPARISON: CT BRAIN W/O CONTRAST, July 08, 2015, 16:35. INDICATIONS : Cephalgia. RADIATION DOSE: 40.54 CTDIvol (mGy) MEDICAL HISTORY : Deep venous thrombosis. Cardiovascular disease Diabetes mellitus type 2.Inguinal hernia. SURGICAL HISTORY : Coronary stent. ENCOUNTER: Initial ACUITY: 2 days PAIN SCALE: 5/10 LOCATION: cranial TECHNIQUE: Multiple contiguous axial images were obtained of the head. Using automated exposure control and adj ustment of the mA and/or kV according to patient size, radiation dose was kept as low as reasonably a chievable to obtain optimal diagnostic quality images. DICOM format image data is available electro nically for review and comparison. FINDINGS: CEREBRUM: The ventricles are normal for age. No evidence of midline shift, mass lesion, hemorrhage or acute in farction. No extra-axial fluid collections are seen. POSTERIOR FOSSA: The cerebellum and brainstem are intact. The 4th ventricle is midline. The cerebellopontine angle i s unremarkable. EXTRACRANIAL: The visualized portion of the orbits is intact. SKULL: The calvaria is intact. No evidence of skull fracture. CONCLUSION: Unremarkable noncontrast CT. Allen Turner MD on December 16, 2016 at 4:37 Board Certified Radiologist. This report was verified electronically.
[2016-12-16] MEDS ORDERED: ACETAMINOPHEN 500 MG CPLT PO PRN (05:30)
[2016-12-16] MEDS ORDERED: SODIUM CHLORIDE 0.9% FLUSH 10 ML FLUSH IV FLUSH PRN (05:30)
[2016-12-16] MEDS ORDERED: ONDANSETRON HCL 4 MG/2 ML VIAL IV PRN (05:30)
[2016-12-16] MEDS ORDERED: ASPIRIN 81 MG CHEW TAB PO ONE (05:30)
[2016-12-16] MEDS ORDERED: SODIUM CHLORIDE 0.9% FLUSH 10 ML FLUSH IV FLUSH SCH (09:00)
--- NOTE | 2016-12-16 09:18 | HHI.HP ---
HPI Primary Care Physician Joaquina Jesus MD Chief Complaint Headache, face pain, shortness of breath History of Present Illness 46 year old male presents to the ER with the complaint of headache, facial pain , intermittent chest pain, dizziness, LOC, and shortness of breath. Reports 2 days ago left cerumen impaction and since this has had headache and "my whole face hurts like I am coming down with a cold." Also, reports two episodes of passing out. First episode reports being unconscious for a few hours and the second episode 5 hours. No known precipitating factors. Chest discomfort reports to be intermittent shortness of breath with chest tightness. Nonexertional. No association of symptoms. No radiation of pain. No precipitating or relieving factors. States "I came here for my headache and face pain, not chest pain." Review of Systems General: No fatigue,weakness, fever, chills, recent illness, or change in appetite. Has been in his general state of health other than recent left cerumen impaction, states subsequently developed a headache and facial pain since cerumen removal. HEENT: Current frontal FOSS x2 days waxing and waning in intensity. CV: As stated above. No current chest pain pressure. No palpitations. RESP: Intermittent shortness of breath. No cough, wheeze, or sputum production. Endorses history of asthma stating "shortness of breath and chest tightness most likely related to seasonal allergies." GI: No nausea, vomiting, or bowel changes. Complaints of intermittent severe gas reports taking Nexium for. : No dysuria EXT: No lower leg edema, bilateral lower leg neuropathy MS: No discomfort or change in ROM NEURO: Reports x2 episodes of LOC with LOC lasting 3-5 hours. PSYCH: No situational stress Past Family Social History Allergies: Coded Allergies: Adhesives (Verified Allergy, Severe, Hives, 12/13/16) Ibuprofen (Verified Allergy, Severe, Rash, 12/13/16) Latex (Verified Allergy, Severe, RASH, 12/13/16) Past Medical History Hyperlipidemia, diabetes type II, morbid obesity, chronic pain syndrome, hypothyroidism, anxiety, asthma, PE DVT, reports x3 AR with cardiac stents at this hospital (Cardiac cath 2013-coronary arteries normal) Cath completed due NSTEMI, elevated troponin's thought to be due to hypercoagulable state per records. Past Surgical History bilateral inguinal hernia repair Reported Medications Active Lortab (Hydrocodone-Acetaminophen) 5-325 Mg Tab 1 Tab PO Q6H PRN Ciprodex Otic Drops (Ciprofloxacin-Dexamethasone Otic Drops) 0.3-0.1% Susp 4 Drop LEFT EAR BID Neurontin (Gabapentin) 600 Mg Tab 600 Mg PO TID Warfarin 6 Mg Tab 12 Mg PO TUTHSA 30 Days Warfarin 6 Mg Tab 6 Mg PO SUMOWEFR Glipizide 10 Mg Tab 10 Mg PO QID Take 30 minutes before a meal Loperamide (Loperamide HCl) 2 Mg Cap 2 Mg PO Q12HR PRN One capsule after each loose stool. Not to exceed 8 capsules per day. Metformin (Metformin HCl) 1,000 Mg Tab 1,000 Mg PO BIDPC With meals Klor-Con M20 (Potassium Chloride Microencaps) 20 Meq Tab 20 Meq PO DAILY Gemfibrozil 600 Mg Tab 600 Mg PO BIDAC Take 30 minutes prior to breakfast and dinner. Active Ordered Medications Current Medications Medications (Trade) Dose Ordered Sig/Joanna Route Start Time Stop Time Status Last Admin (NS Flush) 2 ml UNSCH PRN IV FLUSH 12/16/16 05:30 (NS Flush) 2 ml BID IV FLUSH 12/16/16 09:00 (Tylenol) 500 mg Q4H PRN PO 12/16/16 05:30 (Zofran Inj) 4 mg Q6H PRN IV 12/16/16 05:30 Social History Known diabetes and hyperlipidemia. No known hypertension. Reports having had 3 heart attacks and stents placed. Our records here do not indicate this. Past Cardiac Testing 01/30/2014 Cardiac CatheterizationConclusions !. Angiographically normal coronary arteries. 2. Normal LVF. 3. Normal left-sided filling pressures. Physical Exam Vital Signs Vital Signs Date Time Temp Pulse Resp B/P Pulse Ox O2 Delivery O2 Flow Rate FiO2 12/16/16 08:08 97.8 89 18 125/70 96 12/16/16 03:00 89 16 122/65 95 Room Air 12/16/16 02:31 18 98 Room Air 12/16/16 02:31 78 18 98 Room Air 12/16/16 00:28 98.0 95 16 141/78 95 Room Air Physical Exam GENERAL: Alert WN, WD, NAD, morbidity obese, male HEAD: NC, AT EYES: Sclera clear, conjunctiva without injection, pupils equal and round CV: RRR, without murmur, rub, gallop, no JVD, S1-S2 no S3-S4. N RESP: Clear lungs throughout bilateral, no crackles, wheeze, rhonchi, symmetrical chest rise, nonlabored, able to speak in full sentences ABD: Soft, NT, ND, no masses, positive bowel tones, obese EXT: Pulses +24, trace dependent edema MS: Normal tone 4 extremities, nontender, no obvious deformities, full range of motion NEURO: CN II through CN XII grossly intact, motor strength 5/5, gait WNL PSYCH: A+O 3, appropriate speech, appropriate insight and judgment SKIN: Normal turgor, normal texture Laboratory Laboratory Tests Test 12/16/16 03:20 White Blood Count 9.7 Red Blood Count 5.12 Hemoglobin 14.5 Hematocrit 43.4 Mean Corpuscular Volume 84.9 Mean Corpuscular Hemoglobin 28.4 Mean Corpuscular Hemoglobin 33.5 Concent Red Cell Distribution Width 14.7 Platelet Count 211 Mean Platelet Volume 8.1 Neutrophils (%) (Auto) 58.9 Lymphocytes (%) (Auto) 29.1 Monocytes (%) (Auto) 8.5 Eosinophils (%) (Auto) 2.9 Basophils (%) (Auto) 0.6 Neutrophils # (Auto) 5.7 Lymphocytes # (Auto) 2.8 Monocytes # (Auto) 0.8 Eosinophils # (Auto) 0.3 Basophils # (Auto) 0.1 CBC Comment DIFF FINAL Differential Comment Prothrombin Time 25.2 Prothromb Time International 2.2 Ratio Activated Partial 42.8 Thromboplast Time Sodium Level 140 Potassium Level 4.1 Chloride Level 104 Carbon Dioxide Level 28.8 Anion Gap 7 Blood Urea Nitrogen 15 Creatinine 0.97 Estimat Glomerular Filtration 83 Rate Random Glucose 224 Calcium Level 9.0 Magnesium Level 2.1 Total Bilirubin 0.2 Aspartate Amino Transf 17 (AST/SGOT) Alanine Aminotransferase 30 (ALT/SGPT) Alkaline Phosphatase 85 Total Creatine Kinase 114 Creatine Kinase MB 1.2 Troponin I LESS THAN 0.02 C-Reactive Protein 1.19 B-Type Natriuretic Peptide 4 Total Protein 6.9 Albumin 3.2 Lipase 157 Result Diagram: 12/16/16 0320 12/16/16 0320 Imaging Last Impressions Head CT 12/16/16 0245 Signed Impressions: Service Date/Time: Friday, December 16, 2016 04:20 - CONCLUSION: Unremarkable noncontrast CT. Allen Turner MD Chest X-Ray 12/16/16 0245 Signed Impressions: Service Date/Time: Friday, December 16, 2016 02:43 - CONCLUSION: No acute disease. Allen Turner MD Course EKG Normal sinus rhythm, nonspecific T-wave changes Assessment and Plan Assessment and Plan #1 Atypical chest painAdmitted to chest pain center with complaints of shortness of breath and intermittent chest pain. Ruled out with 2 sets of EKGs and cardiac enzymes. No further cardiac testing at this time . Patient had normal cardiac cath 2014 and pain atypical. #2 Cephalgia-Tylenol when necessary. Head CT no acute findings. Follow-up with PCP. No changes in home medication regimen. Discharge this am. Krystle Fan Dec 16, 2016 09:18
--- NOTE | 2016-12-16 09:42 | EKG ---
Date Performed: 12/16/2016 Time Performed: 03:28:55 PTAGE: 46 years EKG: Sinus rhythm NONSPECIFIC T-WAVE ABNORMALITY BORDERLINE ECG Since PREVIOUS TRACING , no significant change noted DOCTOR: Koki Brownlee Interpretating Date/Time 12/16/2016 09:41:19
[2016-12-16] MEDS ORDERED: PANTOPRAZOLE SOD 20 MG DELAYED RELEASE TAB PO ONE (09:45)
[2016-12-16] MEDS ORDERED: metFORMIN HCL 500 MG TAB PO SCH (09:45)
[2016-12-16] MEDS ORDERED: GEMFIBROZIL 600 MG TAB PO SCH (09:45)
[2016-12-16 10:18] LABS: CREATINE KINASE 108 U/L (39-308)
[2016-12-16 10:30] LABS: CKMB 0.7 NG/ML (0.5-3.6)
--- NOTE | 2016-12-16 10:55 | HHI.DCPOC ---
Discharge Care Plan Diagnosis: (1) Atypical chest pain (2) Type 2 diabetes mellitus (3) HX-VENOUS THROMBOSIS&EMBOLISM (4) Chronic pain (5) Head and face pain Goals to Promote Your Health * To prevent worsening of your condition and complications * To maintain your health at the optimal level Directions to Meet Your Goals Take your medications as prescribed Follow your dietary instruction Follow activity as directed Keep your appointments as scheduled Take your immunizations and boosters as scheduled If your symptoms worsen call your PCP, if no PCP go to Urgent Care Center or Emergency Room Smoking is Dangerous to Your Health. Avoid second hand smoke Call the 24-hour hour crisis hotline for domestic abuse at Krystle Fan Dec 16, 2016 10:55
[2016-12-16] MEDS ORDERED: GABAPENTIN 300 MG CAP PO SCH (13:00)
[2016-12-16] MEDS ORDERED: glipiZIDE 10 MG TAB PO SCH (13:00)
[2016-12-16] MEDS ORDERED: WARFARIN SOD 6 MG TAB PO SCH (16:00)
--- NOTE | 2016-12-16 18:04 | EKG ---
Date Performed: 12/16/2016 Time Performed: 09:01:05 PTAGE: 46 years EKG: Sinus rhythm NORMAL ECG Since PREVIOUS TRACING , no significant change noted PREVIOUS TRACIN12/16/2016 03.28 DOCTOR: Koki Brownlee Interpretating Date/Time 12/16/2016 18:02:19
== END 2016-12-16 14:59 | disposition home or self-care (01) ==
LOC: NEPC 00:25 → NEDA 04:45 → NEPGCP 07:54
PROVIDERS: ADMIT Internal Medicine Cardiovascular Disease; ATTEND Internal Medicine Cardiovascular Disease
DX: R07.89 Other chest pain (principal); R51 Headache; R06.02 Shortness of breath; I25.10 Atherosclerotic heart disease of native coronary artery without angina pectoris; G89.4 Chronic pain syndrome; E03.9 Hypothyroidism, unspecified; I25.2 Old myocardial infarction; E78.5 Hyperlipidemia, unspecified; F41.9 Anxiety disorder, unspecified; E66.01 Morbid (severe) obesity due to excess calories; J45.909 Unspecified asthma, uncomplicated; E78.1 Pure hyperglyceridemia; H61.22 Impacted cerumen, left ear; F32.9 Major depressive disorder, single episode, unspecified; E78.00 Pure hypercholesterolemia, unspecified; Z86.718 Personal history of other venous thrombosis and embolism; Z79.84 Long term (current) use of oral hypoglycemic drugs; Z86.711 Personal history of pulmonary embolism; Z79.01 Long term (current) use of anticoagulants; E11.9 Type 2 diabetes mellitus without complications; Z95.5 Presence of coronary angioplasty implant and graft
CPT/HCPCS: 70450; 71010; 80053; 82550; 82552; 83690; 83735; 83880; 84484; 85025; 85610; 85730; 86140; 93005; 99285; G0378

== ENCOUNTER → 2016-12-18 | Outpatient (CLI) | payer OTHER ==
[~2016-12-18] MED LIST changes: +NEOM1SOL17 OT
[2016-12-18 15:34] LABS: INTERNATIONAL NORMALIZED RATIO 1.2 RATIO; PROTHROMBIN TIME - PATIENT 13.8 SEC (9.8-11.6)
== END ==
LOC: CLAB 14:25
PROVIDERS: ATTEND Family Medicine
DX: I82.409 Acute embolism and thrombosis of unspecified deep veins of unspecified lower extremity (principal)
CPT/HCPCS: 36415; 85610

== ENCOUNTER → 2016-12-22 | Outpatient (CLI) | payer OTHER ==
[~2016-12-22] MED LIST changes: +AMOX500C PO; +LIPI40TA PO; +MOME17I EACH NARE
[2016-12-22 14:21] LABS: PROTHROMBIN TIME - PATIENT 22.6 SEC (9.8-11.6)
== END ==
LOC: CLAB 13:44
PROVIDERS: ATTEND Family Medicine
DX: I82.409 Acute embolism and thrombosis of unspecified deep veins of unspecified lower extremity (principal)
CPT/HCPCS: 36415; 85610

== ENCOUNTER 2016-12-23 04:30 | Emergency (ER) | payer OTHER ==
[~2016-12-23] VITALS: Ht 175.3 cm; Wt 150.0 kg
[~2016-12-23 04:30] MED LIST changes: -AMOX500C PO; -LIPI40TA PO; -MOME17I EACH NARE; -NEOM1SOL17 OT
[2016-12-23 04:32] VITALS: BP 156/78; PULSE 94; RESP 16; TEMP 98.3; O2SAT 95
[2016-12-23] MEDS ORDERED: HYDR-3533 PO (06:32)
[2016-12-23] MEDS ORDERED: NEOM1SOL17 OT (06:32)
--- NOTE | 2016-12-23 06:37 | PD ---
HPI Chief Complaint: ENT Complaint Time Seen by Provider: 06:33 Travel History International Travel<30 days: No Contact w/Intl Traveler<30days: No Traveled to known affect area: No History of Present Illness HPI 46-year-old white male presents to emergency department requesting reevaluation of bilateral ear pain. He also states that he had a area on his right thigh which she suspects may be an insect bite. He states that he had squeezed the area and has become increasing painful and red. 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 ) Endocrine: Yes (HYPOTHYROID) Gastrointestinal Disorders: No Genitourinary: No Heparin Induced Thrombocytopen: Yes Hypertension: No Immune Disorder: No Implanted Vascular Access Dvce: No Kidney Stones: No Musculoskeletal: No Neurologic: No Psychiatric: Yes Reproductive: No Respiratory: Yes (PEx1) Immunizations Current: Yes Myocardial Infarction: Yes (x2) Pancreatitis: Yes Radiation Therapy: No Renal Failure: No Sleep Apnea: No Thyroid Disease: Yes Tetanus Vaccination: < 5 Years Influenza Vaccination: Yes PNEUMOCCOCAL Vaccine (Year): 1 Past Surgical History Abdominal Surgery: Yes (BILATERAL INGUINAL HERNIA REPAIRS x 2) AICD: No Arteriovenous Shunt: No Body Medical Devices: cardiac stent Cardiac Surgery: No Coronary Artery Bypass Graft: No Coronary Stent: Yes Ear Surgery: No Endocrine Surgery: No Eye Surgery: No Genitourinary Surgery: No Hysterectomy: No Insulin Pump: No Joint Replacement: No Neurologic Surgery: No Oral Surgery: No Pacemaker: No Thoracic Surgery: No Family History Family Myocardial Infarction: Yes Social History Alcohol Use: No Tobacco Use: No Substance Use: No Allergies-Medications (Allergen,Severity, Reaction): Coded Allergies: Adhesives (Verified Allergy, Severe, Hives, 12/23/16) Ibuprofen (Verified Allergy, Severe, Rash, 12/23/16) Latex (Verified Allergy, Severe, RASH, 12/23/16) Reported Meds & Prescriptions Reported Meds & Active Scripts Active Lortab (Hydrocodone-Acetaminophen) 5-325 Mg Tab 1 Tab PO Q4H PRN Neomycin/Polymyxin/Hydroc 1 % (Qsiiqqnt-Ecisdjrqn-Ep (Otic)) 1 Monika Monika 4 Drop OT QID Lortab (Hydrocodone-Acetaminophen) 5-325 Mg Tab 1 Tab PO Q6H PRN Ciprodex Otic Drops (Ciprofloxacin-Dexamethasone Otic Drops) 0.3-0.1% Susp 4 Drop LEFT EAR BID Neurontin (Gabapentin) 600 Mg Tab 600 Mg PO TID Warfarin 6 Mg Tab 12 Mg PO TUTHSA 30 Days Warfarin 6 Mg Tab 6 Mg PO SUMOWEFR Glipizide 10 Mg Tab 10 Mg PO QID Take 30 minutes before a meal Loperamide (Loperamide HCl) 2 Mg Cap 2 Mg PO Q12HR PRN One capsule after each loose stool. Not to exceed 8 capsules per day. Metformin (Metformin HCl) 1,000 Mg Tab 1,000 Mg PO BIDPC With meals Klor-Con M20 (Potassium Chloride Microencaps) 20 Meq Tab 20 Meq PO DAILY Reported Gemfibrozil 600 Mg Tab 600 Mg PO BIDAC Take 30 minutes prior to breakfast and dinner. Review of Systems Except as stated in HPI: all other systems reviewed are Neg Physical Exam Narrative GENERAL: Well-developed, morbidly obese in no acute distress. Nontoxic appearing. HEAD: Normocephalic, atraumatic. EYES: Pupils equal round and reactive. Extraocular motions intact. No scleral icterus. No injection or drainage. ENT: TMs clear without pearly visualized due to bilateral cerumen impaction tenderness in the canals.. The external auditory canals clear. Nose: clear . Posterior pharynx is pink and moist. No tonsillar edema or exudate. Uvula midline. Airway patent. NECK: Trachea midline.Supple, nontender, moves head freely. No central bony tenderness or spasm. CARDIOVASCULAR: Regular rate and rhythm without murmurs, gallops, or rubs. RESPIRATORY: Clear to auscultation. Breath sounds equal bilaterally. No wheezes , rales, or rhonchi. GASTROINTESTINAL: Abdomen soft, non-tender, nondistended. No hepato-splenomegaly , or palpable masses. No guarding. EXTREMITIES: No clubbing, cyanosis, or edema. No joint tenderness, effusion, or edema noted. There is a 1.5 x 1.5 cm erythematous follicular lesion to the right lateral thigh. BACK: Nontender without deformity or crepitance. No flank tenderness. Data Data Last Documented VS Vital Signs Date Time Temp Pulse Resp B/P Pulse Ox O2 Delivery O2 Flow Rate FiO2 12/23/16 04:35 16 12/23/16 04:32 98.3 94 156/78 95 Room Air MDM Medical Decision Making Medical Screen Exam Complete: Yes Emergency Medical Condition: Yes Medical Record Reviewed: Yes Differential Diagnosis Differential diagnosis: Otitis media, otitis externa, cerumen impaction, folliculitis Narrative Course This is folliculitis, cerumen impaction Diagnosis Primary Impression: Cerumen impaction Qualified Code: H61.23 - Bilateral impacted cerumen Additional Impression: Folliculitis Patient Instructions: General Instructions Additional Instructions: Rest. Medications as directed. Follow-up with a medical doctor in the next 3-5 days. Return to the ER for emergencies. Med/Other Pt SpecificInfo: Prescription(s) given Scripts Hydrocodone-Acetaminophen (Lortab)5-325 Mg Tab1 Tab PO Q4H PRN (PAIN) #12 TAB Prov:Tracy Lr MD 12/23/16 Sdakihqr-Zjpvgtqxy-Za (Otic) (Neomycin/Polymyxin/Hydroc 1 %)1 Monika Sol4 Drop OT QID #1 Prov:Tracy Lr MD 12/23/16 Disposition: 01 DISCHARGE HOME Condition: Stable Viet Abdalla Dec 23, 2016 06:37
[2016-12-30] MEDS ORDERED: METF1000 PO (15:19)
[2016-12-30] MEDS ORDERED: GLIP10TA6 PO (15:19)
[2016-12-30] MEDS ORDERED: POTA-245 PO (15:19)
[2016-12-30] MEDS ORDERED: NEUR600T PO (15:19)
[2017-01-02] MEDS ORDERED: LIPI40TA PO (12:08)
== END 2016-12-23 06:44 | disposition home or self-care (01) ==
LOC: NEPD 04:30
DX: H61.23 Impacted cerumen, bilateral (principal); L73.9 Follicular disorder, unspecified; E66.01 Morbid (severe) obesity due to excess calories; E11.9 Type 2 diabetes mellitus without complications; E03.9 Hypothyroidism, unspecified; I25.10 Atherosclerotic heart disease of native coronary artery without angina pectoris; K85.90 Acute pancreatitis without necrosis or infection, unspecified; I25.2 Old myocardial infarction; Z86.718 Personal history of other venous thrombosis and embolism
CPT/HCPCS: 99283

== ENCOUNTER → 2016-12-26 | Outpatient (CLI) | payer OTHER ==
[~2016-12-26] MED LIST changes: +AMOX500C PO; +AUGM875T3 PO; +BACT800T5 PO; +LIPI40TA PO; +MOME17I EACH NARE; +NEOM1SOL17 OT
--- NOTE | 2016-12-26 17:28 | RADRPT ---
EXAM DATE/TIME: 12/26/2016 15:18 [facility] COMPARISON: CT ABDOMEN & PELVIS W CONTRAST, May 25, 2014, 1:48. INDICATIONS : Abdominal mass. MEDICAL HISTORY : Hypercholesterolemia. Thyroid disease. Syncope. Myocardial infarction. Coronary artery disease . Deep vein thrombosis. Asthma. Pancreatitis. Diabetes. Anxiety. SURGICAL HISTORY : Cardiac catheterization. Coronary stent. Bilateral inguinal hernia repair. Deep vein thrombosis re moval from left leg. ENCOUNTER: Initial ACUITY: 3 days PAIN SCORE: 4/10 LOCATION: Bilateral abdomen. MEASUREMENTS: LIVER: 20.6 cm length COMMON DUCT: 3 mm RIGHT KIDNEY: 13.2 x 6.4 x 6.8 cm LEFT KIDNEY: 15.0 x 6.3 x 8.2 cm SPLEEN: 16.3 cm length AORTA: 1.6cm maximal FINDINGS: LIVER: Liver is enlarged and demonstrates a hyperechoic texture. There is no evidence of bili duct dilatatio n or focal space occupying lesions. COMMON DUCT: No intraluminal mass or stone visualized. GALLBLADDER: Contains no stones, demonstrates no wall thickening or pericholecystic fluid. PANCREAS: Poorly visualized. RIGHT KIDNEY: No hydronephrosis or mass. LEFT KIDNEY: No hydronephrosis, stone or mass. SPLEEN: Spleen is mildly to moderately enlarged. AORTA: Non aneurysmal. IVC: Within normal limits. In the upper abdomen there is a midline subcutaneous mass that has heterogeneous appearance with some acoustic shadowing. Margins are poorly defined. Mass nearly 6 cm in size. CONCLUSION: 1. Hepatosplenomegaly with suspected significant steatosis. 2. Poorly defined heterogeneous upper abdominal mass 3. Visualization of the pancreas. 4. No evidence of hydronephrosis, biliary stricture disease or abnormal fluid collections. Geoffrey Mattson MD on December 26, 2016 at 17:18 Board Certified Radiologist. This report was verified electronically.
== END ==
LOC: HRAD 14:43
PROVIDERS: ATTEND Nurse Practitioner Family
DX: D17.9 Benign lipomatous neoplasm, unspecified (principal)
CPT/HCPCS: 76700

== ENCOUNTER 2017-01-01 14:21 | Emergency (ER) | payer OTHER ==
[~2017-01-01] VITALS: Ht 172.7 cm; Wt 148.0 kg
[~2017-01-01 14:21] MED LIST changes: -AMOX500C PO; -AUGM875T3 PO; -BACT800T5 PO; -LIPI40TA PO; -MOME17I EACH NARE
--- NOTE | 2017-01-01 14:29 | PD ---
Physical Exam Date Seen by Provider: Jan 01, 2017 Time Seen by Provider: 14:28 Narrative 46 YOWM C/O FOSS AND SINUS PAIN. ALSO C/O EAR PAIN FOR SEVERAL WEEKS VS REVIEWED WAITING FOR BED PLACEMENT MDM Supervised Visit with KACI: Viet Combs Jan 01, 2017 14:29
[2017-01-01 14:30] VITALS: BP 136/80; PULSE 95; RESP 16; TEMP 98.2; O2SAT 99
[2017-01-01] MEDS ORDERED: AMOX500C PO (16:51)
--- NOTE | 2017-01-01 16:52 | PD ---
HPI Chief Complaint: Headache Time Seen by Provider: 16:50 Travel History International Travel<30 days: No Contact w/Intl Traveler<30days: No Traveled to known affect area: No History of Present Illness HPI 46-year-old male presents to the emergency Department with complaint that he thinks he has a sinus infection. He has had nasal congestion for 3 weeks causing pressure behind his eyes and sinus pressure. Reports bilateral ear pain. Says the sinus pressure radiates like a band around his head. Denies fever, sore throat, cough. Denies nausea, vomiting. Says he's been seen by his primary care provider for this same complaint and was told he had an outer ear infection and was given eardrops which did not help with his symptoms. He has no other medical complaints. Symptoms are mild in severity. Allergies to adhesives, ibuprofen, latex. No other modifying factors or associated signs and symptoms. PFSH Past Medical History Hx Anticoagulant Therapy: Yes (Warfarin) Asthma: Yes Autoimmune Disease: No Anxiety: Yes Depression: Yes Heart Rhythm Problems: No Cancer: No Cardiac Catheterization: Yes Cardiovascular Problems: Yes (ME X 3 PE X2) High Cholesterol: Yes Chemotherapy: No Chest Pain: Yes Congestive Heart Failure: No COPD: No Cerebrovascular Accident: No Coronary Artery Disease: Yes Diabetes: Yes Diminished Hearing: No Deep Vein Thrombosis: Yes (DVT AND PE'S. ) Endocrine: Yes (HYPOTHYROID) Gastrointestinal Disorders: No Genitourinary: No Heparin Induced Thrombocytopen: Yes Hypertension: No Immune Disorder: No Implanted Vascular Access Dvce: No Kidney Stones: No Musculoskeletal: No Neurologic: No Psychiatric: Yes Reproductive: No Respiratory: Yes (PEx1) Immunizations Current: Yes Myocardial Infarction: Yes (x2) Pancreatitis: Yes Radiation Therapy: No Renal Failure: No Sleep Apnea: No Thyroid Disease: Yes PNEUMOCCOCAL Vaccine (Year): 1 Past Surgical History Abdominal Surgery: Yes (BILATERAL INGUINAL HERNIA REPAIRS x 2) AICD: No Arteriovenous Shunt: No Body Medical Devices: cardiac stent Cardiac Surgery: No Coronary Artery Bypass Graft: No Coronary Stent: Yes Ear Surgery: No Endocrine Surgery: No Eye Surgery: No Genitourinary Surgery: No Hysterectomy: No Insulin Pump: No Joint Replacement: No Neurologic Surgery: No Oral Surgery: No Pacemaker: No Thoracic Surgery: No Social History Alcohol Use: No Tobacco Use: No Substance Use: No Allergies-Medications (Allergen,Severity, Reaction): Coded Allergies: adhesive (Unverified Allergy, Severe, Hives, 12/30/16) ibuprofen (Unverified Allergy, Severe, Rash, 12/30/16) latex (Unverified Allergy, Severe, RASH, 12/30/16) Reported Meds & Prescriptions Reported Meds & Active Scripts Active Amoxicillin 500 Mg Cap 500 Mg PO BID 10 Days Neurontin (Gabapentin) 600 Mg Tab 600 Mg PO TID Glipizide 10 Mg Tab 10 Mg PO QID Take 30 minutes before a meal Metformin (Metformin HCl) 1,000 Mg Tab 1,000 Mg PO BIDPC With meals Warfarin 6 Mg Tab 12 Mg PO TUTHSA 30 Days Warfarin 6 Mg Tab 6 Mg PO SUMOWEFR Loperamide (Loperamide HCl) 2 Mg Cap 2 Mg PO Q12HR PRN One capsule after each loose stool. Not to exceed 8 capsules per day. Reported Gemfibrozil 600 Mg Tab 600 Mg PO BIDAC Take 30 minutes prior to breakfast and dinner. Review of Systems Except as stated in HPI: all other systems reviewed are Neg Physical Exam Narrative GENERAL: Well-nourished, well-developed male patient, in no acute distress; afebrile, nontoxic-appearing SKIN: Warm and dry. No rash. HEAD: Atraumatic. Normocephalic. Frontal and maxillary sinus tenderness on palpation. EYES: Pupils equal and round. No scleral icterus. No injection or drainage. ENT: Mucosa pink and moist. Oropharynx without erythema, exudates, tonsillar edema.. No uvular edema. No uvular, palatal, or tonsillar deviation. Airway patent. EARS: Bilateral pinnae and external canals appear within normal limits. Bilateral tympanic membranes without erythema, dullness or perforation; tympanic membranes bulging bilaterally. NECK: Trachea midline. No lymphadenopathy. CARDIOVASCULAR: Regular rate. RESPIRATORY: No accessory muscle use. GASTROINTESTINAL: Obese. MUSCULOSKELETAL: No obvious deformities. No clubbing. No cyanosis. No edema. NEUROLOGICAL: Awake and alert. Oriented 3. No obvious cranial nerve deficits. Motor grossly within normal limits. Normal speech. Moves all extremities. 5/5 strength to all extremities. PSYCHIATRIC: Appropriate mood and affect; insight and judgment normal. Data Data Last Documented VS Vital Signs Date Time Temp Pulse Resp B/P Pulse Ox O2 Delivery O2 Flow Rate FiO2 01/01/17 14:30 98.2 95 16 136/80 99 [facility] Medical Decision Making Medical Screen Exam Complete: Yes Emergency Medical Condition: Yes Medical Record Reviewed: Yes Differential Diagnosis Sinusitis, upper respiratory infection, viral illness, allergic rhinitis Narrative Course 46-year-old male with sinus pressure and nasal congestion 3 weeks. Suspecting sinusitis. Patient is afebrile and nontoxic-appearing. He denies fever, vomiting. Amoxicillin and Nasonex nasal spray prescribed for home. Instructed patient to follow up with primary care provider. Patient verbalizes understanding and agreement with treatment plan. Patient is medically cleared and stable for discharge. Discussed reasons to return to the emergency department. Patient agrees with treatment plan. The patients vital signs are stable and the patient is stable for outpatient follow-up and treatment. Patient discharged home, stable and in no acute distress. Diagnosis Primary Impression: Acute sinusitis Qualified Code: J01.90 - Acute sinusitis, recurrence not specified, unspecified location Referrals: Joaquina Jesus MD [facility] Primary Care Physician Patient Instructions: General Instructions, Sinusitis (ED) Departure Forms: Tests/Procedures, Work Release Enter return to work date: Jan 02, 2017 Additional Instructions: Antibiotics as prescribed and complete full course Ibuprofen or Tylenol as instructed and as needed for fever/pain Wocb-dyb-tyzarbr cough and cold medications as directed and as needed for symptom management Get plenty of sleep/rest Drink plenty of fluids to prevent dehydration; popsicles and Gatorade Use an air humidifier/turn off ceiling fans Follow-up with primary care provider Return immediately to the emergency department with worsening of symptoms Med/Other Pt SpecificInfo: Prescription(s) given Scripts Mometasone Nasal [place] (Nasonex Nasal [place])50 Mcg/Act Naspr2 [place] EACH NARE DAILY PRN (NASAL CONGESTION) #1 BOTTLE Ref 0 Prov:Kristin Elliott 01/01/17 Amoxicillin 500 Mg Vot076 Mg PO BID 10 Days Ref 0 Prov:Kristin Elliott 01/01/17 Disposition: 01 DISCHARGE HOME Condition: Stable Kristin Elliott Jan 01, 2017 16:52
[2017-01-01] MEDS ORDERED: MOME17I EACH NARE (16:57)
[2017-01-02] MEDS ORDERED: LIPI40TA PO (12:08)
== END 2017-01-01 17:18 | disposition home or self-care (01) ==
LOC: NEPK 14:21
DX: J01.90 Acute sinusitis, unspecified (principal); H92.03 Otalgia, bilateral; J45.909 Unspecified asthma, uncomplicated; F41.9 Anxiety disorder, unspecified; I25.10 Atherosclerotic heart disease of native coronary artery without angina pectoris; E03.9 Hypothyroidism, unspecified; K85.90 Acute pancreatitis without necrosis or infection, unspecified; I25.2 Old myocardial infarction; Z86.718 Personal history of other venous thrombosis and embolism
CPT/HCPCS: 99284

== ENCOUNTER → 2017-01-01 | Outpatient (CLI) | payer OTHER ==
[2017-01-01 14:41] LABS: HDL CHOLESTEROL 37.7 MG/DL (40.0-60.0); LDL CHOLESTEROL 126 MG/DL (0-99)
[2017-01-01 16:44] LABS: HEMOGLOBIN A1a 1.2 %; HEMOGLOBIN A1b 2.7 %; HEMOGLOBIN Ao 79.1 %; HEMOGLOBIN LA1C 2.7 %; HEMOGLOBIN P3 4.7 %
== END ==
LOC: CLAB 13:54
PROVIDERS: ATTEND Family Medicine
DX: E78.5 Hyperlipidemia, unspecified (principal); E11.9 Type 2 diabetes mellitus without complications; R07.89 Other chest pain; R46.89 Other symptoms and signs involving appearance and behavior; R35.0 Frequency of micturition; Z86.718 Personal history of other venous thrombosis and embolism
CPT/HCPCS: 36415; 80061; 83036; 84153

== ENCOUNTER 2017-01-05 01:15 | Emergency (ER) | payer OTHER ==
[~2017-01-05] VITALS: Ht 172.7 cm; Wt 148.0 kg
[~2017-01-05 01:15] MED LIST changes: +AMOX500C PO; -CIPR0.3S LEFT EAR; -HYDR-3533 PO; +LIPI40TA PO; +MOME17I EACH NARE; -NEOM1SOL17 OT; -POTA-245 PO
[2017-01-05 01:17] VITALS: BP 119/71; PULSE 99; RESP 16; TEMP 98; O2SAT 96
--- NOTE | 2017-01-05 01:39 | PD ---
HPI Chief Complaint: Injury Time Seen by Provider: 01:27 Travel History International Travel<30 days: No Contact w/Intl Traveler<30days: No Traveled to known affect area: No History of Present Illness HPI 46-year-old male presents for evaluation of left heel pain. He reports that this morning he did his typical Thursday morning whole-body weightlifting workout at the gym. Shortly afterwards he developed left heel pain which is an aching pain that is worse when walking. He reports that he has had DVTs in the legs in the past and his first one presented similarly. He denies any calf or leg pain. He denies chest pain or shortness of breath. He has a history of DVT/PE , he has been on Coumadin for nearly 20 years. He has been using the medication as prescribed. Denies recent travel, recent surgery. No other complaints. PFSH Past Medical History Hx Anticoagulant Therapy: Yes (Warfarin) Asthma: Yes Autoimmune Disease: No Anxiety: Yes Depression: Yes Heart Rhythm Problems: No Cancer: No Cardiac Catheterization: Yes Cardiovascular Problems: Yes ([place] X 3 PE X2) High Cholesterol: Yes Chemotherapy: No Chest Pain: Yes Congestive Heart Failure: No COPD: No Cerebrovascular Accident: No Coronary Artery Disease: Yes Diabetes: Yes Diminished Hearing: No Deep Vein Thrombosis: Yes (DVT AND PE'S. ) Endocrine: Yes (HYPOTHYROID) Gastrointestinal Disorders: No Genitourinary: No Heparin Induced Thrombocytopen: Yes Hypertension: No Immune Disorder: No Implanted Vascular Access Dvce: No Kidney Stones: No Musculoskeletal: No Neurologic: No Psychiatric: Yes Reproductive: No Respiratory: Yes (PEx1) Immunizations Current: Yes Myocardial Infarction: Yes (x2) Pancreatitis: Yes Radiation Therapy: No Renal Failure: No Sleep Apnea: No Thyroid Disease: Yes PNEUMOCCOCAL Vaccine (Year): 1 Past Surgical History Abdominal Surgery: Yes (BILATERAL INGUINAL HERNIA REPAIRS x 2) AICD: No Arteriovenous Shunt: No Body Medical Devices: cardiac stent Cardiac Surgery: No Coronary Artery Bypass Graft: No Coronary Stent: Yes Ear Surgery: No Endocrine Surgery: No Eye Surgery: No Genitourinary Surgery: No Hysterectomy: No Insulin Pump: No Joint Replacement: No Neurologic Surgery: No Oral Surgery: No Pacemaker: No Thoracic Surgery: No Social History Alcohol Use: No Tobacco Use: No Substance Use: No Allergies-Medications (Allergen,Severity, Reaction): Coded Allergies: adhesive (Unverified Allergy, Severe, Hives, 12/30/16) ibuprofen (Unverified Allergy, Severe, Rash, 12/30/16) latex (Unverified Allergy, Severe, RASH, 12/30/16) Reported Meds & Prescriptions Reported Meds & Active Scripts Active Lipitor (Atorvastatin Calcium) 40 Mg Tab 40 Mg PO HS Nasonex Nasal [place] (Mometasone Furoate) 50 Mcg/Act Naspr 2 [place] EACH NARE DAILY PRN Amoxicillin 500 Mg Cap 500 Mg PO BID 10 Days Neurontin (Gabapentin) 600 Mg Tab 600 Mg PO TID Glipizide 10 Mg Tab 10 Mg PO QID Take 30 minutes before a meal Metformin (Metformin HCl) 1,000 Mg Tab 1,000 Mg PO BIDPC With meals Warfarin 6 Mg Tab 12 Mg PO TUTHSA 30 Days Warfarin 6 Mg Tab 6 Mg PO SUMOWEFR Loperamide (Loperamide HCl) 2 Mg Cap 2 Mg PO Q12HR PRN One capsule after each loose stool. Not to exceed 8 capsules per day. Reported Gemfibrozil 600 Mg Tab 600 Mg PO BIDAC Take 30 minutes prior to breakfast and dinner. Review of Systems Except as stated in HPI: all other systems reviewed are Neg Physical Exam Narrative GENERAL: Well-developed well-nourished male in no acute distress SKIN: Warm and dry. No bruising or soft tissue swelling HEAD: Atraumatic. Normocephalic. EYES: Pupils equal and round. No scleral icterus. No injection or drainage. ENT: No nasal bleeding or discharge. Mucous membranes pink and moist. NECK: Trachea midline. No JVD. CARDIOVASCULAR: Regular rate and rhythm. No murmur appreciated. RESPIRATORY: No accessory muscle use. Clear to auscultation. Breath sounds equal bilaterally. MUSCULOSKELETAL: No obvious deformities. Tender to palpation plantar aspect left heel. Achilles tendon intact and nontender. 2+ dorsalis pedis pulse. There is no lower extremity edema. NEUROLOGICAL: Awake and alert. No obvious cranial nerve deficits. Motor grossly within normal limits. Normal speech. Data Data Last Documented VS Vital Signs Date Time Temp Pulse Resp B/P (MAP) Pulse Ox O2 Delivery O2 Flow Rate FiO2 01/05/17 01:17 98.0 99 16 119/71 (87) 96 Room Air Orders Orders Us Leg Venous Doppler (01/05/17 01:35) Complete Blood Count With Diff (01/05/17 01:35) Basic Metabolic Panel (Bmp) (01/05/17 01:35) Act Partial Throm Time (Ptt) (01/05/17 01:35) Prothrombin Time / Inr (Pt) (01/05/17 01:35) Foot, Heel Only ([id number]) (01/05/17 ) Labs Laboratory Tests Test 01/05/17 01:45 White Blood Count 11.1 TH/MM3 Red Blood Count 5.17 MIL/MM3 Hemoglobin 14.5 GM/DL Hematocrit 43.7 % Mean Corpuscular Volume 84.5 FL Mean Corpuscular Hemoglobin 28.0 PG Mean Corpuscular Hemoglobin Concent 33.1 % Red Cell Distribution Width 14.7 % Platelet Count 261 TH/MM3 Mean Platelet Volume 8.4 FL Neutrophils (%) (Auto) 56.4 % Lymphocytes (%) (Auto) 31.8 % Monocytes (%) (Auto) 8.8 % Eosinophils (%) (Auto) 2.5 % Basophils (%) (Auto) 0.5 % Neutrophils # (Auto) 6.3 TH/MM3 Lymphocytes # (Auto) 3.5 TH/MM3 Monocytes # (Auto) 1.0 TH/MM3 Eosinophils # (Auto) 0.3 TH/MM3 Basophils # (Auto) 0.1 TH/MM3 CBC Comment DIFF FINAL Differential Comment Prothrombin Time 28.0 SEC Prothromb Time International Ratio 2.4 RATIO Activated Partial Thromboplast Time 43.2 SEC Blood Urea Nitrogen 17 MG/DL Creatinine 1.04 MG/DL Random Glucose 149 MG/DL Calcium Level 9.1 MG/DL Sodium Level 139 MEQ/L Potassium Level 3.6 MEQ/L Chloride Level 102 MEQ/L Carbon Dioxide Level 27.5 MEQ/L Anion Gap 10 MEQ/L Estimat Glomerular Filtration Rate 76 ML/MIN [facility] Medical Decision Making Medical Screen Exam Complete: Yes Emergency Medical Condition: Yes Medical Record Reviewed: Yes Interpretation(s) CONCLUSION: 1. Probable old nonocclusive deep venous thrombus in the left peroneal vein. Remainder of the left lower extremity veins are patent. Differential Diagnosis Plantar fasciitis, tendinitis, calcaneal stress fracture, DVT Narrative Course 46-year-old male presents with left heel pain after performing a weightlifting exercise this morning. He is concerned that he may have a new DVT, he reports that previous DVTs have presented the same way. Examination reveals focal tenderness to palpation of the plantar left heel suggesting more musculoskeletal etiology. An ultrasound was performed revealing a old nonocclusive deep vein thrombosis in the left peroneal vein consistent with his history. His INR is therapeutic. His heel x-ray reveals a calcaneal heel spur with no acute abnormalities. He is stable for discharge. Diagnosis Primary Impression: Pain of left heel Additional Instructions: Ice to the affected area several times a day 20 minutes at a time. Take Tylenol for discomfort. Modify activities to avoid activities that exacerbate your pain. Follow-up in 2 weeks with primary care physician. Return for any emergent medical conditions. Med/Other Pt SpecificInfo: No Change to Meds Disposition: 01 DISCHARGE HOME Condition: Stable Kevin Hernandez Jan 05, 2017 01:39
--- NOTE | 2017-01-05 02:14 | RADRPT ---
EXAM DATE/TIME: 01/05/2017 01:53 [facility] COMPARISON: No previous studies available for comparison. INDICATIONS : Nontraumatic pain and swelling of the left ankle. Patient states same feel, look, and location of his first DVT, Ultrasound pending. MEDICAL HISTORY : Deep venous thrombosis. Hypercholesterolemia. Myocardial infarction. Diabetes SURGICAL HISTORY : Coronary artery stent. Inguinal hernia repair. removal of thrombus left leg ENCOUNTER: Initial ACUITY: 1 day PAIN SCORE: 8/10 LOCATION: Left Lower extremity FINDINGS: Two view examination of the left heel demonstrates the trabecula to be intact with no evidence of fra cture. There is a normal calcaneal angle. The soft tissues are of normal thickness. CONCLUSION: 1. No acute findings. Prominent bone spur posteriorly at plantar fascial and Achilles insertions. Viet Reed MD on January 05, 2017 at 2:12 Board Certified Radiologist. This report was verified electronically.
[2017-01-05 02:25] LABS: AUTOMATED NEUTROPHIL # 6.3 TH/MM3 (1.8-7.7); BASOPHIL # 0.1 TH/MM3 (0-0.2); BASOPHIL % 0.5 % (0.0-2.0); EOSINOPHIL # 0.3 TH/MM3 (0-0.4); EOSINOPHIL % 2.5 % (0.0-4.0); HEMATOCRIT 43.7 % (39.0-51.0); HEMO FLAGS DIFF FINAL; LYMPH % 31.8 % (9.0-44.0); LYMPHOCYTE # 3.5 TH/MM3 (1.0-4.8); MEAN CELL VOLUME 84.5 FL (80.0-100.0); MEAN CORPUSCULAR HGB CONC 33.1 % (32.0-36.0); MONO % 8.8 % (0.0-8.0); NEUT % 56.4 % (16.0-70.0); PLATELET COUNT 261 TH/MM3 (150-450); RED BLOOD COUNT 5.17 MIL/MM3 (4.50-5.90); RED CELL DISTRIBUTION WIDTH 14.7 % (11.6-17.2); WHITE BLOOD COUNT 11.1 TH/MM3 (4.0-11.0)
--- NOTE | 2017-01-05 02:29 | RADRPT ---
EXAM DATE/TIME: 01/05/2017 01:53 [facility] COMPARISON: No previous studies available for comparison. INDICATIONS : Left foot pain. MEDICAL HISTORY : DVT both legs. PE. NC. Hernia. SURGICAL HISTORY : Hernia repair. Cardiac stent. ENCOUNTER: Initial ACUITY: 1 day PAIN SCORE: 7/10 LOCATION: Left leg. TECHNIQUE: Venous ultrasound of the leg was performed from the inguinal ligament to the proximal calf. Real-christiano e, color Doppler and spectral tracing, compression and augmentation techniques were used. FINDINGS: There is a probable old nonocclusive thrombus in the left peroneal vein. Negative for thrombus in the femoral, popliteal, posterior tibial and saphenous veins. CONCLUSION: 1. Probable old nonocclusive deep venous thrombus in the left peroneal vein. Remainder of the left lo wer extremity veins are patent. Viet Reed MD on January 05, 2017 at 2:25 Board Certified Radiologist. This report was verified electronically.
[2017-01-05 02:36] LABS: APTT (PATIENT) 43.2 SEC (24.3-30.1); INTERNATIONAL NORMALIZED RATIO 2.4 RATIO
[2017-01-05 02:41] LABS: BICARBONATE 27.5 MEQ/L (21.0-32.0); POTASSIUM 3.6 MEQ/L (3.5-5.1)
== END 2017-01-05 03:40 | disposition home or self-care (01) ==
LOC: NEPD 01:15
DX: M79.672 Pain in left foot (principal); Z79.01 Long term (current) use of anticoagulants; J45.909 Unspecified asthma, uncomplicated; E11.9 Type 2 diabetes mellitus without complications
CPT/HCPCS: 73650; 80048; 85025; 85610; 85730; 93971; 99285

== ENCOUNTER 2017-01-24 15:40 | Emergency (ER) | payer OTHER ==
[~2017-01-24] VITALS: Ht 172.7 cm; Wt 150.0 kg
[2017-01-24 15:42] VITALS: BP 134/76; PULSE 92; RESP 24; TEMP 97.8; O2SAT 97
--- NOTE | 2017-01-24 17:02 | PD ---
HPI Chief Complaint: Pain: Acute or Chronic Time Seen by Provider: 16:47 Travel History International Travel<30 days: No Contact w/Intl Traveler<30days: No Traveled to known affect area: No History of Present Illness HPI The patient's 46 years old and arrives with dermatitis on the dorsal aspect of the left hand. He reports 2 days prior some swelling and erythema followed by discharge. He reports a burning pain in the ER. Supple water irrigation was somewhat helpful at home. No fever. Additional complaints include chronic R wrist pain and chronic L ankle pain. PFSH Past Medical History Hx Anticoagulant Therapy: Yes (Warfarin) Asthma: Yes Autoimmune Disease: No Anxiety: Yes Depression: Yes Heart Rhythm Problems: No Cancer: No Cardiac Catheterization: Yes Cardiovascular Problems: Yes High Cholesterol: Yes Chemotherapy: No Chest Pain: Yes Congestive Heart Failure: No COPD: No Cerebrovascular Accident: No Coronary Artery Disease: Yes Diabetes: Yes Diminished Hearing: No Deep Vein Thrombosis: Yes (DVT AND PE'S. ) Endocrine: Yes (HYPOTHYROID) Gastrointestinal Disorders: No Genitourinary: No Heparin Induced Thrombocytopen: Yes Hypertension: No Immune Disorder: No Implanted Vascular Access Dvce: No Kidney Stones: No Musculoskeletal: No Neurologic: No Psychiatric: Yes Reproductive: No Respiratory: Yes Immunizations Current: Yes Myocardial Infarction: Yes (x2) Pancreatitis: Yes Radiation Therapy: No Renal Failure: No Sleep Apnea: No Thyroid Disease: Yes PNEUMOCCOCAL Vaccine (Year): 1 Past Surgical History Abdominal Surgery: Yes (BILATERAL INGUINAL HERNIA REPAIRS x 2) AICD: No Arteriovenous Shunt: No Body Medical Devices: cardiac stent Cardiac Surgery: No Coronary Artery Bypass Graft: No Coronary Stent: Yes Ear Surgery: No Endocrine Surgery: No Eye Surgery: No Genitourinary Surgery: No Hysterectomy: No Insulin Pump: No Joint Replacement: No Neurologic Surgery: No Oral Surgery: No Pacemaker: No Thoracic Surgery: No Social History Alcohol Use: No Tobacco Use: No Substance Use: No Allergies-Medications (Allergen,Severity, Reaction): Coded Allergies: adhesive (Unverified Allergy, Severe, Hives, 12/30/16) ibuprofen (Unverified Allergy, Severe, Rash, 12/30/16) latex (Unverified Allergy, Severe, RASH, 12/30/16) Reported Meds & Prescriptions Reported Meds & Active Scripts Active Lipitor (Atorvastatin Calcium) 40 Mg Tab 40 Mg PO HS Nasonex Nasal [place] (Mometasone Furoate) 50 Mcg/Act Naspr 2 [place] EACH NARE DAILY PRN Amoxicillin 500 Mg Cap 500 Mg PO BID 10 Days Neurontin (Gabapentin) 600 Mg Tab 600 Mg PO TID Glipizide 10 Mg Tab 10 Mg PO QID Take 30 minutes before a meal Metformin (Metformin HCl) 1,000 Mg Tab 1,000 Mg PO BIDPC With meals Warfarin 6 Mg Tab 12 Mg PO TUTHSA 30 Days Warfarin 6 Mg Tab 6 Mg PO SUMOWEFR Loperamide (Loperamide HCl) 2 Mg Cap 2 Mg PO Q12HR PRN One capsule after each loose stool. Not to exceed 8 capsules per day. Reported Gemfibrozil 600 Mg Tab 600 Mg PO BIDAC Take 30 minutes prior to breakfast and dinner. Review of Systems General / Constitutional: No: Fever Musculoskeletal: Positive: Arthralgias Skin: Positive Rash Neurologic: Positive: Headache Physical Exam Narrative GENERAL: Well-nourished well-developed 46-year-old male, BMI 50 SKIN: Warm and dry. 2 cm of flat erythema overlying the dorsal left hand just distal to the DRUJ without warmth or induration. Clearly demarcated wound margins are present. HEAD: Normocephalic. EYES: No scleral icterus. No injection or drainage. NECK: Supple, trachea midline. No JVD or lymphadenopathy. MUSCULOSKELETAL: No cyanosis, or edema. BACK: Nontender without obvious deformity. No CVA tenderness. Data Data Last Documented VS Vital Signs Date Time Temp Pulse Resp B/P (MAP) Pulse Ox O2 Delivery O2 Flow Rate FiO2 01/24/17 15:42 97.8 92 24 134/76 (95) 97 Room Air VS reviewed [facility] Medical Decision Making Medical Screen Exam Complete: Yes Emergency Medical Condition: Yes Differential Diagnosis cellulitis, dermatitis, abscess, ulcer, insect bite Narrative Course Infectious process considered less likely. Pt ready for discharge home. Diagnosis Primary Impression: Dermatitis Referrals: Primary Care Physician 2 days Additional Instructions: You have a choice when it comes to health care, and we are glad that you chose [facility]. Hopefully, we have met your expectations on today's visit. You are welcome to return to [facility] at any time, as we are committed to meeting the health care needs of our community. Med/Other Pt SpecificInfo: No Change to Meds Disposition: DISCHARGE HOME Condition: John Perez MD Jan 24, 2017 17:02
== END 2017-01-24 17:34 | disposition home or self-care (01) ==
LOC: NEPD 15:40
DX: L30.9 Dermatitis, unspecified (principal); R51 Headache; M25.531 Pain in right wrist; M25.572 Pain in left ankle and joints of left foot; G89.29 Other chronic pain; J45.909 Unspecified asthma, uncomplicated; E11.9 Type 2 diabetes mellitus without complications; E03.9 Hypothyroidism, unspecified; I25.10 Atherosclerotic heart disease of native coronary artery without angina pectoris
CPT/HCPCS: 99281

== ENCOUNTER 2017-02-02 19:20 | Emergency (ER) | payer SELFPAY ==
[2017-02-02 19:23] VITALS: BP 163/83; PULSE 94; RESP 15; TEMP 95
--- NOTE | 2017-02-02 21:05 | PD ---
HPI Chief Complaint: Headache Time Seen by Provider: 20:46 Travel History International Travel<30 days: No Contact w/Intl Traveler<30days: No Traveled to known affect area: No History of Present Illness HPI 46-year-old male complains of earache, headache, burning pain on the toes and fingers. Patient states that he has intermittent earache with headache for the past month and a half. Patient was seen in emergency room in the past for cerumen impaction of the ears. Ear Irrigation was done in the past. Patient was taking antibiotics and ear drops for earache in the past. Patient denies any visual change. Patient denies any neck pain. Patient denies any chest pain or shortness of breath. Patient denies abdominal pain. Patient denies any back pain. Patient denies any recent injury. Patient denies any fever chills. Patient states that he has burning pain on the toes and fingers for the past few days. Patient has history diabetes on glipizide and metformin. Patient also complained of nasal congestion recently. PFSH Past Medical History Hx Anticoagulant Therapy: Yes (Warfarin) Asthma: Yes Autoimmune Disease: No Anxiety: Yes Depression: Yes Heart Rhythm Problems: No Cancer: No Cardiac Catheterization: Yes Cardiovascular Problems: Yes High Cholesterol: Yes Chemotherapy: No Chest Pain: Yes Congestive Heart Failure: No COPD: No Cerebrovascular Accident: No Coronary Artery Disease: Yes Diabetes: Yes Diminished Hearing: No Deep Vein Thrombosis: Yes (DVT AND PE'S. ) Endocrine: Yes (HYPOTHYROID) Gastrointestinal Disorders: No Genitourinary: No Heparin Induced Thrombocytopen: Yes Hypertension: No Immune Disorder: No Implanted Vascular Access Dvce: No Kidney Stones: No Musculoskeletal: No Neurologic: No Psychiatric: Yes Reproductive: No Respiratory: Yes Immunizations Current: Yes Myocardial Infarction: Yes (x2) Pancreatitis: Yes Radiation Therapy: No Renal Failure: No Sleep Apnea: No Thyroid Disease: Yes PNEUMOCCOCAL Vaccine (Year): 1 Past Surgical History Abdominal Surgery: Yes (BILATERAL INGUINAL HERNIA REPAIRS x 2) AICD: No Arteriovenous Shunt: No Body Medical Devices: cardiac stent Cardiac Surgery: No Coronary Artery Bypass Graft: No Coronary Stent: Yes Ear Surgery: No Endocrine Surgery: No Eye Surgery: No Genitourinary Surgery: No Hysterectomy: No Insulin Pump: No Joint Replacement: No Neurologic Surgery: No Oral Surgery: No Pacemaker: No Thoracic Surgery: No Other Surgery: Yes (DVT REMOVAL FROM LEFT LEG) Social History Alcohol Use: No Tobacco Use: No Substance Use: No Allergies-Medications (Allergen,Severity, Reaction): Coded Allergies: adhesive (Unverified Allergy, Severe, Hives, 02/02/17) ibuprofen (Unverified Allergy, Severe, Rash, 02/02/17) latex (Unverified Allergy, Severe, RASH, 02/02/17) Reported Meds & Prescriptions Reported Meds & Active Scripts Active Lipitor (Atorvastatin Calcium) 40 Mg Tab 40 Mg PO HS Nasonex Nasal [place] (Mometasone Furoate) 50 Mcg/Act Naspr 2 [place] EACH NARE DAILY PRN Amoxicillin 500 Mg Cap 500 Mg PO BID 10 Days Neurontin (Gabapentin) 600 Mg Tab 600 Mg PO TID Glipizide 10 Mg Tab 10 Mg PO QID Take 30 minutes before a meal Metformin (Metformin HCl) 1,000 Mg Tab 1,000 Mg PO BIDPC With meals Warfarin 6 Mg Tab 12 Mg PO TUTHSA 30 Days Warfarin 6 Mg Tab 6 Mg PO SUMOWEFR Loperamide (Loperamide HCl) 2 Mg Cap 2 Mg PO Q12HR PRN One capsule after each loose stool. Not to exceed 8 capsules per day. Reported Gemfibrozil 600 Mg Tab 600 Mg PO BIDAC Take 30 minutes prior to breakfast and dinner. Review of Systems General / Constitutional: No: Fever Eyes: No: Visual changes HENT: Positive: Congestion, Earache, No: Headaches Cardiovascular: No: Chest Pain or Discomfort Respiratory: No: Shortness of Breath Gastrointestinal: No: Abdominal Pain Genitourinary: No: Dysuria Musculoskeletal: No: Pain Skin: No Rash Neurologic: Positive: Sensory Disturbance, No: Weakness Psychiatric: No: Depression Endocrine: No: Polydipsia Hematologic/Lymphatic: No: Easy Bruising Physical Exam Narrative GENERAL: Well-nourished, well-developed patient. SKIN: Focused skin assessment warm/dry. HEAD: Normocephalic. EYES: No scleral icterus. No injection or drainage. Pupils 2 mm equal reactive. Patient has small amount of cerumen in bilateral ear canals. TM are clear. NECK: Supple, trachea midline. No JVD or lymphadenopathy. CARDIOVASCULAR: Regular rate and rhythm without murmurs, gallops, or rubs. RESPIRATORY: Breath sounds equal bilaterally. No accessory muscle use. GASTROINTESTINAL: Abdomen soft, non-tender, nondistended. MUSCULOSKELETAL: No cyanosis, or edema. BACK: Nontender without obvious deformity. No CVA tenderness. Examination of the hand sent feet shows no evidence of redness swelling deformity. Full range of motion of the toes and fingers. Mild tenderness on palpation to the tip of the fingers and toes. Neurologic exam normal. Data Data Last Documented VS Vital Signs Date Time Temp Pulse Resp B/P (MAP) Pulse Ox O2 Delivery O2 Flow Rate FiO2 02/02/17 19:23 95.0 94 15 163/83 (109) Room Air MDM Medical Decision Making Medical Screen Exam Complete: Yes Emergency Medical Condition: Yes Medical Record Reviewed: Yes Differential Diagnosis Differential diagnosis including otitis externa, otitis media, migraine headache , tension headache, cluster headache, neuralgia, neuropathy, cellulitis. Narrative Course 46-year-old male with earache, headache, burning pain on the toes and fingers. History of diabetes. Diagnosis Primary Impression: Neuralgia Additional Impression: Otalgia Qualified Codes: H92.03 - Otalgia, bilateral Patient Instructions: General Instructions Additional Instructions: Tylenol for pain. Follow-up with local physician. Return if worse. Med/Other Pt SpecificInfo: No Change to Meds Disposition: 01 DISCHARGE HOME Condition: Stable Boris Rivas MD Feb 02, 2017 21:05
== END 2017-02-02 21:12 | disposition home or self-care (01) ==
LOC: NEPD 19:20
DX: M79.2 Neuralgia and neuritis, unspecified (principal); H92.03 Otalgia, bilateral; R51 Headache; R09.81 Nasal congestion; E11.9 Type 2 diabetes mellitus without complications; E03.9 Hypothyroidism, unspecified; E78.00 Pure hypercholesterolemia, unspecified; I25.2 Old myocardial infarction; Z79.84 Long term (current) use of oral hypoglycemic drugs; Z79.01 Long term (current) use of anticoagulants; Z87.09 Personal history of other diseases of the respiratory system; Z86.59 Personal history of other mental and behavioral disorders; Z86.79 Personal history of other diseases of the circulatory system; Z86.718 Personal history of other venous thrombosis and embolism; Z87.19 Personal history of other diseases of the digestive system
CPT/HCPCS: 99282

== ENCOUNTER 2017-02-04 14:39 | Emergency (ER) | payer SELFPAY ==
[~2017-02-04] VITALS: Ht 172.7 cm; Wt 145.0 kg
[2017-02-04 14:41] VITALS: BP 150/77; PULSE 104; RESP 18; TEMP 97.6; O2SAT 95
--- NOTE | 2017-02-04 14:54 | PD ---
Physical Exam Date Seen by Provider: Feb 04, 2017 Time Seen by Provider: 14:49 Narrative 46-year-old white male presents to emergency Department with complaints of cough , congestion, epistaxis, hematemesis, and general malaise. Patient's last INR was 2.3 weeks ago. Vital signs reviewed. Awaiting bed placement. Data Data Last Documented VS Vital Signs Date Time Temp Pulse Resp B/P (MAP) Pulse Ox O2 Delivery O2 Flow Rate FiO2 02/04/17 14:41 97.6 104 18 150/77 (101) 95 MDM Medical Record Reviewed: No Supervised Visit with KACI: Viet Combs Feb 04, 2017 14:54
[2017-02-04] MEDS ORDERED: GABAPENTIN 300 MG CAP PO ONE (15:45)
--- NOTE | 2017-02-04 15:53 | PD ---
HPI Chief Complaint: Medical Clearance Time Seen by Provider: 15:24 Travel History International Travel<30 days: No Contact w/Intl Traveler<30days: No Traveled to known affect area: No History of Present Illness HPI This is a 46-year-old male who presents to the emergency department with increasing numbness and tingling and pain in his hands and feet, constant, moderate severity typical of his diabetic neuropathy pain. Patient was being followed by Dr. Jesus in clinic and was receiving gabapentin. He says ever since her clinic close he's been unable to fill his medications at [place] and he has been off of his gabapentin. He also reports nasal congestion, intermittent vomiting with some blood streaks and some diarrhea. He denies any lightheadedness or dizziness. He was just seen here last week for similar symptoms. PFSH Past Medical History Hx Anticoagulant Therapy: Yes Asthma: Yes Autoimmune Disease: No Anxiety: Yes Depression: Yes Heart Rhythm Problems: No Cancer: No Cardiac Catheterization: Yes Cardiovascular Problems: Yes High Cholesterol: Yes Chemotherapy: No Chest Pain: Yes Congestive Heart Failure: No COPD: No Cerebrovascular Accident: No Coronary Artery Disease: Yes Diabetes: Yes Diminished Hearing: No Deep Vein Thrombosis: Yes (DVT AND PE'S. ) Endocrine: Yes (HYPOTHYROID) Gastrointestinal Disorders: No Genitourinary: No Heparin Induced Thrombocytopen: Yes Hypertension: No Immune Disorder: No Implanted Vascular Access Dvce: No Kidney Stones: No Musculoskeletal: No Neurologic: No Psychiatric: Yes Reproductive: No Respiratory: Yes Immunizations Current: Yes Myocardial Infarction: Yes (x2) Pancreatitis: Yes Radiation Therapy: No Renal Failure: No Sleep Apnea: No Thyroid Disease: Yes PNEUMOCCOCAL Vaccine (Year): 1 Past Surgical History Abdominal Surgery: Yes (BILATERAL INGUINAL HERNIA REPAIRS x 2) AICD: No Arteriovenous Shunt: No Body Medical Devices: cardiac stent Cardiac Surgery: No Coronary Artery Bypass Graft: No Coronary Stent: Yes Ear Surgery: No Endocrine Surgery: No Eye Surgery: No Genitourinary Surgery: No Hysterectomy: No Insulin Pump: No Joint Replacement: No Neurologic Surgery: No Oral Surgery: No Pacemaker: No Thoracic Surgery: No Other Surgery: Yes (DVT REMOVAL FROM LEFT LEG) Social History Alcohol Use: No Tobacco Use: No Substance Use: No Allergies-Medications (Allergen,Severity, Reaction): Coded Allergies: adhesive (Unverified Allergy, Severe, Hives, 02/04/17) ibuprofen (Unverified Allergy, Severe, Rash, 02/04/17) latex (Unverified Allergy, Severe, RASH, 02/04/17) Reported Meds & Prescriptions Reported Meds & Active Scripts Active Neurontin (Gabapentin) 600 Mg Tab 600 Mg PO TID Glipizide 10 Mg Tab 10 Mg PO QID Take 30 minutes before a meal Metformin (Metformin HCl) 1,000 Mg Tab 1,000 Mg PO BIDPC With meals Warfarin 6 Mg Tab 12 Mg PO TUTHSA 30 Days Warfarin 6 Mg Tab 6 Mg PO SUMOWEFR Loperamide (Loperamide HCl) 2 Mg Cap 2 Mg PO Q12HR PRN One capsule after each loose stool. Not to exceed 8 capsules per day. Lipitor (Atorvastatin Calcium) 40 Mg Tab 40 Mg PO HS Reported Gemfibrozil 600 Mg Tab 600 Mg PO BIDAC Take 30 minutes prior to breakfast and dinner. Review of Systems Except as stated in HPI: all other systems reviewed are Neg Physical Exam Narrative GENERAL: Morbidly obese. SKIN: Focused skin assessment warm and dry. HEAD: Atraumatic. Normocephalic. EYES: Pupils equal and round. No injection or drainage. ENT: Moist mucous membranes NECK: Trachea midline. CARDIOVASCULAR: Regular rate and rhythm. No murmur appreciated. RESPIRATORY: Clear to auscultation. Breath sounds equal bilaterally. GASTROINTESTINAL: Abdomen soft, non-tender, nondistended. MUSCULOSKELETAL: No obvious deformities. NEUROLOGICAL: Awake and alert. No obvious cranial nerve deficits. Moving all extremities. PSYCHIATRIC: Appropriate mood and affect; insight and judgment normal. Data Data Last Documented VS Vital Signs Date Time Temp Pulse Resp B/P (MAP) Pulse Ox O2 Delivery O2 Flow Rate FiO2 02/04/17 14:41 97.6 104 18 150/77 (101) 95 Orders Orders Complete Blood Count With Diff (02/04/17 15:33) Comprehensive Metabolic Panel (02/04/17 15:33) ^ Insert Iv (02/04/17 15:33) Gabapentin (Neurontin) (02/04/17 15:45) Labs Laboratory Tests Test 02/04/17 16:00 White Blood Count 10.7 TH/MM3 Red Blood Count 5.23 MIL/MM3 Hemoglobin 14.8 GM/DL Hematocrit 44.5 % Mean Corpuscular Volume 85.1 FL Mean Corpuscular Hemoglobin 28.3 PG Mean Corpuscular Hemoglobin Concent 33.2 % Red Cell Distribution Width 14.7 % Platelet Count 227 TH/MM3 Mean Platelet Volume 8.3 FL Neutrophils (%) (Auto) 70.0 % Lymphocytes (%) (Auto) 20.6 % Monocytes (%) (Auto) 7.3 % Eosinophils (%) (Auto) 1.6 % Basophils (%) (Auto) 0.5 % Neutrophils # (Auto) 7.5 TH/MM3 Lymphocytes # (Auto) 2.2 TH/MM3 Monocytes # (Auto) 0.8 TH/MM3 Eosinophils # (Auto) 0.2 TH/MM3 Basophils # (Auto) 0.1 TH/MM3 CBC Comment DIFF FINAL Differential Comment MDM Medical Decision Making Medical Screen Exam Complete: Yes Emergency Medical Condition: Yes Interpretation(s) Afebrile, mild tachycardia mild hypertension INR was checked last week and was 2.3 Differential Diagnosis Anemia, electrolyte abnormality, diabetic neuropathy, sinus infection, gastroenteritis Narrative Course This is a 46-year-old male who presents to the emergency department with multiple nonspecific complaints including vomiting, diarrhea, pins and needle sensation in his hands and feet and sinus congestion. He seems to be most bothered by his diabetic neuropathy pain. He says he hasn't been able to fill his gabapentin because he was recently discharged from Dr. Jesus's clinic and our pharmacy won't fill his medications. I had case management look into this situation. The patient's prescription card is evidently . He is supposed to follow-up with his failure clinic to continue filling his medications but he hasn't been area. I reiterated the instructions that he needs to follow up with his failure clinic. Labs are obtained which were all reassuring. I don't think his presentation today reflects a medical emergency. He'll be discharged home. Diagnosis Primary Impression: Diabetic neuropathy Qualified Codes: E13.42 - Other specified diabetes mellitus with diabetic polyneuropathy Referrals: [facility] Patient Instructions: General Instructions Additional Instructions: If you develop severe chest pain, shortness of breath, sweating, lightheadedness , dizziness or difficulty breathing return to the emergency department immediately. Followup with your primary care physician in 2-3 days if your symptoms are not resolved. Med/Other Pt SpecificInfo: No Change to Meds Disposition: 01 DISCHARGE HOME Condition: Stable Sissy Magallanes MD Feb 04, 2017 15:53
[2017-02-04 16:31] LABS: AUTOMATED NEUTROPHIL # 7.5 TH/MM3 (1.8-7.7); BASOPHIL # 0.1 TH/MM3 (0-0.2); BASOPHIL % 0.5 % (0.0-2.0); EOSINOPHIL # 0.2 TH/MM3 (0-0.4); EOSINOPHIL % 1.6 % (0.0-4.0); HEMATOCRIT 44.5 % (39.0-51.0); HEMO FLAGS DIFF FINAL; LYMPH % 20.6 % (9.0-44.0); LYMPHOCYTE # 2.2 TH/MM3 (1.0-4.8); MEAN CELL VOLUME 85.1 FL (80.0-100.0); MEAN CORPUSCULAR HEMOGLOBIN 28.3 PG (27.0-34.0); MEAN CORPUSCULAR HGB CONC 33.2 % (32.0-36.0); MONO % 7.3 % (0.0-8.0); PLATELET COUNT 227 TH/MM3 (150-450); RED BLOOD COUNT 5.23 MIL/MM3 (4.50-5.90); RED CELL DISTRIBUTION WIDTH 14.7 % (11.6-17.2); WHITE BLOOD COUNT 10.7 TH/MM3 (4.0-11.0)
[2017-02-04 16:52] LABS: ANION GAP 7 MEQ/L (5-15); AST (GOT) 21 U/L (15-37); BICARBONATE 25.6 MEQ/L (21.0-32.0); BLOOD UREA NITROGEN 12 MG/DL (7-18); CHLORIDE 103 MEQ/L (98-107); GLOMERULAR FILTRATION RATE 75 ML/MIN (>89); SODIUM (NA) 136 MEQ/L (136-145)
[2017-02-04 16:53] LABS: ALKALINE PHOSPHATASE 123 U/L (45-117); ALT (GPT) 33 U/L (12-78); TOTAL BILIRUBIN ADULT 0.3 MG/DL (0.2-1.0)
[2017-02-04] MEDS ORDERED: AUGM875T3 PO (18:54)
--- NOTE | 2017-02-04 18:54 | PD ---
Physical Exam Date Seen by Provider: Feb 04, 2017 Time Seen by Provider: 18:51 Narrative For full history and physical examination please see previous provider's note. Patient is being discharge and then inquired to the nurse about his sinus infection. He states that for the last month he's had sinus pressure and nasal congestion. He reports that after he took the antibiotics in December his symptoms improved, 2 days later his symptoms return. He does report a history of allergic rhinitis but states he doesn't feel it's related to that. Data Data Last Documented VS Vital Signs Date Time Temp Pulse Resp B/P (MAP) Pulse Ox O2 Delivery O2 Flow Rate FiO2 02/04/17 14:41 97.6 104 18 150/77 (101) 95 Orders Orders Complete Blood Count With Diff (02/04/17 15:33) Comprehensive Metabolic Panel (02/04/17 15:33) ^ Insert Iv (02/04/17 15:33) Gabapentin (Neurontin) (02/04/17 15:45) Labs Laboratory Tests Test 02/04/17 16:00 White Blood Count 10.7 TH/MM3 Red Blood Count 5.23 MIL/MM3 Hemoglobin 14.8 GM/DL Hematocrit 44.5 % Mean Corpuscular Volume 85.1 FL Mean Corpuscular Hemoglobin 28.3 PG Mean Corpuscular Hemoglobin Concent 33.2 % Red Cell Distribution Width 14.7 % Platelet Count 227 TH/MM3 Mean Platelet Volume 8.3 FL Neutrophils (%) (Auto) 70.0 % Lymphocytes (%) (Auto) 20.6 % Monocytes (%) (Auto) 7.3 % Eosinophils (%) (Auto) 1.6 % Basophils (%) (Auto) 0.5 % Neutrophils # (Auto) 7.5 TH/MM3 Lymphocytes # (Auto) 2.2 TH/MM3 Monocytes # (Auto) 0.8 TH/MM3 Eosinophils # (Auto) 0.2 TH/MM3 Basophils # (Auto) 0.1 TH/MM3 CBC Comment DIFF FINAL Differential Comment Blood Urea Nitrogen 12 MG/DL Creatinine 1.06 MG/DL Random Glucose 290 MG/DL Total Protein 7.1 GM/DL Albumin 3.3 GM/DL Calcium Level 8.9 MG/DL Alkaline Phosphatase 123 U/L Aspartate Amino Transf (AST/SGOT) 21 U/L Alanine Aminotransferase (ALT/SGPT) 33 U/L Total Bilirubin 0.3 MG/DL Sodium Level 136 MEQ/L Potassium Level 4.0 MEQ/L Chloride Level 103 MEQ/L Carbon Dioxide Level 25.6 MEQ/L Anion Gap 7 MEQ/L Estimat Glomerular Filtration Rate 75 ML/MIN [facility] Medical Record Reviewed: Yes Supervised Visit with KACI: Yes Narrative Course Patient will be provided with a prescription for Augmentin, he was advised to obtain [id number] nasal saline wash and use as directed. Additionally he can obtain [id number] Flonase her Nasonex and use as directed. He was encouraged to complete full course of antibiotics as prescribed. He was encouraged to follow up with a primary doctor. Furthermore patient was encouraged to return to emergency department for any new or worsening symptoms. Patient verbalized understanding of instructions. Patient stable for discharge. Diagnosis Primary Impression: Diabetic neuropathy Qualified Codes: E13.42 - Other specified diabetes mellitus with diabetic polyneuropathy Additional Impression: Acute sinusitis Qualified Codes: J01.90 - Acute sinusitis, unspecified Referrals: [facility] Patient Instructions: General Instructions, Diabetic Peripheral Neuropathy (ED) Departure Forms: Tests/Procedures Additional Instruction: If you develop severe chest pain, shortness of breath, sweating, lightheadedness , dizziness or difficulty breathing return to the emergency department immediately. Followup with your primary care physician in 2-3 days if your symptoms are not resolved. Complete full course of antibiotics as prescribed Take [id number] nasal saline wash and use as directed You may trial [id number] Coricidin HBP and use as needed and as directed Med/Other Pt SpecificInfo: Prescription(s) given Scripts Amoxicillin-Clavulanate (Augmentin) 875-125 Mg Tab 1 TAB PO BID for Infection, #20 TAB 0 Refills Prov: Nidia Darby 02/04/17 Disposition: DISCHARGE HOME Condition: Stable Nidia Darby Feb 04, 2017 18:54
== END 2017-02-04 19:37 | disposition home or self-care (01) ==
LOC: NEPD 14:39
DX: E13.42 Other specified diabetes mellitus with diabetic polyneuropathy (principal); J01.90 Acute sinusitis, unspecified; Z79.84 Long term (current) use of oral hypoglycemic drugs
CPT/HCPCS: 80053; 85025; 99283

== ENCOUNTER 2017-02-13 21:49 | Emergency (ER) | payer SELFPAY ==
[~2017-02-13] VITALS: Ht 172.7 cm; Wt 150.9 kg
[~2017-02-13 21:49] MED LIST changes: -AMOX500C PO; +AUGM875T3 PO; -MOME17I EACH NARE
[2017-02-13 21:56] VITALS: BP 147/80; PULSE 101; RESP 16; TEMP 97.9; O2SAT 97
--- NOTE | 2017-02-13 22:19 | PD ---
HPI Chief Complaint: Pain: Acute or Chronic Time Seen by Provider: 22:06 Travel History International Travel<30 days: No Contact w/Intl Traveler<30days: No Traveled to known affect area: No History of Present Illness HPI The patient is a 46-year-old male, frequent visitor to emergency department with over 17 visits this year alone, who complains of left ankle pain and swelling with drainage from a ulcer in the left ankle. He denies any trauma. He states he was eating pizza, all you can eat at [employer], and the pain began 2 hours ago. He is a diabetic, treated with glipizide, and his diabetes is somewhat poorly controlled. The ulcer just appeared several hours ago when he was eating pizza. The patient has a history of diabetic polyneuropathy on his left ankle and foot area and this is where it hurts. The patient takes Coumadin because of blood clots in the left leg. He states he takes his Coumadin correctly. The patient states he sat on a small chair for over 6 hours and then went to eat pizza. PFSH Past Medical History Hx Anticoagulant Therapy: Yes Asthma: Yes Autoimmune Disease: No Anxiety: Yes Depression: Yes Heart Rhythm Problems: No Cancer: No Cardiac Catheterization: Yes Cardiovascular Problems: Yes High Cholesterol: Yes Chemotherapy: No Chest Pain: Yes Congestive Heart Failure: No COPD: No Cerebrovascular Accident: No Coronary Artery Disease: Yes Diabetes: Yes Diminished Hearing: No Deep Vein Thrombosis: Yes (DVT AND PE'S. ) Endocrine: Yes (HYPOTHYROID) Gastrointestinal Disorders: No Genitourinary: No Heparin Induced Thrombocytopen: Yes Hypertension: No Immune Disorder: No Implanted Vascular Access Dvce: No Kidney Stones: No Musculoskeletal: No Neurologic: No Psychiatric: Yes Reproductive: No Respiratory: Yes Immunizations Current: Yes Myocardial Infarction: Yes (x2) Pancreatitis: Yes Radiation Therapy: No Renal Failure: No Sleep Apnea: No Thyroid Disease: Yes PNEUMOCCOCAL Vaccine (Year): 1 Past Surgical History Abdominal Surgery: Yes (BILATERAL INGUINAL HERNIA REPAIRS x 2) AICD: No Arteriovenous Shunt: No Body Medical Devices: cardiac stent Cardiac Surgery: No Coronary Artery Bypass Graft: No Coronary Stent: Yes Ear Surgery: No Endocrine Surgery: No Eye Surgery: No Genitourinary Surgery: No Hysterectomy: No Insulin Pump: No Joint Replacement: No Neurologic Surgery: No Oral Surgery: No Pacemaker: No Thoracic Surgery: No Other Surgery: Yes (DVT REMOVAL FROM LEFT LEG) Social History Alcohol Use: No Tobacco Use: No Substance Use: No Allergies-Medications (Allergen,Severity, Reaction): Coded Allergies: adhesive (Unverified Allergy, Severe, Hives, 02/13/17) ibuprofen (Unverified Allergy, Severe, Rash, 02/13/17) latex (Unverified Allergy, Severe, RASH, 02/13/17) Reported Meds & Prescriptions Reported Meds & Active Scripts Active Neurontin (Gabapentin) 600 Mg Tab 600 Mg PO TID Glipizide 10 Mg Tab 10 Mg PO QID Take 30 minutes before a meal Metformin (Metformin HCl) 1,000 Mg Tab 1,000 Mg PO BIDPC With meals Warfarin 6 Mg Tab 12 Mg PO TUTHSA 30 Days Warfarin 6 Mg Tab 6 Mg PO SUMOWEFR Loperamide (Loperamide HCl) 2 Mg Cap 2 Mg PO Q12HR PRN One capsule after each loose stool. Not to exceed 8 capsules per day. Reported Gemfibrozil 600 Mg Tab 600 Mg PO BIDAC Take 30 minutes prior to breakfast and dinner. Review of Systems Except as stated in HPI: all other systems reviewed are Neg Physical Exam Narrative GENERAL: The patient is alert, oriented 3, morbidly obese in moderate apparent distress with his left ankle discomfort. His vital signs show heart rate of 101 , blood pressure 147/80 but otherwise normal. SKIN: Focused skin assessment warm/dry. HEAD: Atraumatic. Normocephalic. EYES: Pupils equal and round. No scleral icterus. No injection or drainage. ENT: No nasal bleeding or discharge. Mucous membranes pink and moist. NECK: Trachea midline. No JVD. CARDIOVASCULAR: Regular rate and rhythm. No murmur appreciated. RESPIRATORY: No accessory muscle use. Clear to auscultation. Breath sounds equal bilaterally. GASTROINTESTINAL: Abdomen soft, non-tender, nondistended. Hepatic and splenic margins not palpable. MUSCULOSKELETAL: No obvious deformities. No clubbing. No cyanosis. No edema. NEUROLOGICAL: Awake and alert. No obvious cranial nerve deficits. Motor grossly within normal limits. Normal speech. PSYCHIATRIC: Appropriate mood and affect; insight and judgment normal. Data Data Last Documented VS Vital Signs Date Time Temp Pulse Resp B/P (MAP) Pulse Ox O2 Delivery O2 Flow Rate FiO2 02/13/17 23:32 18 97 Room Air 02/13/17 21:56 97.9 101 147/80 (102) Orders Orders Wound Culture And Gram Stain (02/13/17 22:19) Tetanus/Diphtheria Tox Adult (Tetanus/Di (02/13/17 22:30) Ankle, Complete (Qcv8zac) (02/13/17 22:21) Foot, Complete (Bvx8hbt) (02/13/17 22:21) Complete Blood Count With Diff (02/13/17 22:22) Comprehensive Metabolic Panel (02/13/17 22:22) Beta Hydroxybutyrate (Acetone) (02/13/17 22:22) Urinalysis - C+S If Indicated (02/13/17 22:22) Ecg Monitoring (02/13/17 22:22) Iv Access Insert/Monitor (02/13/17 22:22) Oximetry (02/13/17 22:22) Sodium Chloride 0.9% Flush (Ns Flush) (02/13/17 22:30) Prothrombin Time / Inr (Pt) (02/13/17 23:25) Labs Laboratory Tests Test 02/13/17 23:34 White Blood Count 10.5 TH/MM3 Red Blood Count 5.18 MIL/MM3 Hemoglobin 14.4 GM/DL Hematocrit 44.3 % Mean Corpuscular Volume 85.6 FL Mean Corpuscular Hemoglobin 27.8 PG Mean Corpuscular Hemoglobin Concent 32.5 % Red Cell Distribution Width 13.7 % Platelet Count 251 TH/MM3 Mean Platelet Volume 8.1 FL Neutrophils (%) (Auto) 65.5 % Lymphocytes (%) (Auto) 26.0 % Monocytes (%) (Auto) 5.6 % Eosinophils (%) (Auto) 2.4 % Basophils (%) (Auto) 0.5 % Neutrophils # (Auto) 6.8 TH/MM3 Lymphocytes # (Auto) 2.7 TH/MM3 Monocytes # (Auto) 0.6 TH/MM3 Eosinophils # (Auto) 0.3 TH/MM3 Basophils # (Auto) 0.1 TH/MM3 CBC Comment DIFF FINAL Differential Comment Prothrombin Time 38.9 SEC Prothromb Time International Ratio 3.3 RATIO Blood Urea Nitrogen 13 MG/DL Creatinine 0.94 MG/DL Random Glucose 268 MG/DL Total Protein 7.2 GM/DL Albumin 3.4 GM/DL Calcium Level 8.6 MG/DL Alkaline Phosphatase 110 U/L Aspartate Amino Transf (AST/SGOT) 19 U/L Alanine Aminotransferase (ALT/SGPT) 31 U/L Total Bilirubin 0.3 MG/DL Sodium Level 137 MEQ/L Potassium Level 3.9 MEQ/L Chloride Level 100 MEQ/L Carbon Dioxide Level 30.4 MEQ/L Anion Gap 7 MEQ/L Estimat Glomerular Filtration Rate 86 ML/MIN B-Hydroxybutyrate 0.18 MMOL/L MDM Medical Decision Making Medical Screen Exam Complete: Yes Emergency Medical Condition: Yes Medical Record Reviewed: Yes Interpretation(s) X-rays of the foot and ankle show soft tissue swelling but no fracture, subluxation or any other bony abnormality. The complete metabolic profile shows a GFR of 86, glucose 268 but is otherwise unremarkable. The CBC is normal. The beta hydroxybutyrate is normal. The ProTime is 38.9 with an INR of 3.3. Differential Diagnosis Cellulitis, edema, chronic diabetic neuropathy, fracture, osteomyelitis-unlikely Narrative Course Gentle pressure with a Q-tip on the ulcer resolved and the loud scream by the patient, he is exquisitely tender in this area. The patient has edema of the left foot and ankle, likely from keeping the ankle and foot dependent for many hours. Diagnosis Primary Impression: Pain and swelling of left lower leg Additional Impression: Diabetic neuropathy Additional Instructions: Follow-up with your primary care physician as soon as possible. It is very important that you elevate your leg above your heart. The reason you have the swelling is likely because of the prolonged dependent position that you had it in today. The antibiotic is one tablet twice daily for 10 days and is free at [facility] pharmacy. Med/Other Pt SpecificInfo: Prescription(s) given Scripts Sulfamethoxazole-Trimethoprim (Bactrim DS) 800-160 Mg Tab 1 TAB PO BID for Infection, #20 TAB 0 Refills Prov: Jorge Garcia MD 02/14/17 Disposition: 01 DISCHARGE HOME Condition: Stable Jorge Garcia MD Feb 13, 2017 22:19
[2017-02-13] MEDS ORDERED: SODIUM CHLORIDE 0.9% FLUSH 10 ML FLUSH IVF PRN (22:30)
[2017-02-13] MEDS ORDERED: TETANUS/DIPHTHERIA TOXOID ADULT 0.5 ML VIAL IM ONE (22:30)
--- NOTE | 2017-02-13 22:45 | RADRPT ---
EXAM DATE/TIME: 02/13/2017 22:33 [facility] COMPARISON: No previous studies available for comparison. INDICATIONS : Entire left foot pain with swelling. No known trauma. MEDICAL HISTORY : DVT both legs. PE. NC. Hernia SURGICAL HISTORY : Hernia repair. Cardiac stent ENCOUNTER: Initial ACUITY: 1 day PAIN SCORE: 9/10 LOCATION: Left foot FINDINGS: Three view examination of the left foot demonstrates no fracture or dislocation. The tarsal bones a ppear intact. The interphalangeal and metatarsophalangeal joints are intact. The calcaneus is intac t. Bony mineralization is normal. There is diffuse soft tissue swelling. No radiopaque foreign body seen. CONCLUSION: Soft tissue swelling without acute bony abnormality. Daniel Mcdaniel MD on February 13, 2017 at 22:43 Board Certified Radiologist. This report was verified electronically.
--- NOTE | 2017-02-13 22:46 | RADRPT ---
EXAM DATE/TIME: 02/13/2017 22:35 [facility] COMPARISON: No previous studies available for comparison. INDICATIONS : Entire left ankle pain with swelling. No known trauma. MEDICAL HISTORY : DVT both legs. PE. MT. Hernia. SURGICAL HISTORY : Hernia repair. Cardiac stent ENCOUNTER: Initial ACUITY: 1 day PAIN SCORE: 9/10 LOCATION: Left ankle FINDINGS: Three view exam was performed of the left ankle. The bony structures are in normal alignment. No ev idence of fracture or dislocation. The ankle mortise is intact. No radiopaque foreign bodies are se en. Bony mineralization is normal. Soft tissues are diffusely swollen/edematous. CONCLUSION: Soft tissue swelling. No fracture or subluxation or other acute bony abnormality of the left ankle. Daniel Mcdaniel MD on February 13, 2017 at 22:44 Board Certified Radiologist. This report was verified electronically.
[2017-02-13 23:32] VITALS: RESP 18; O2SAT 97
[2017-02-13 23:38] LABS: AUTOMATED NEUTROPHIL # 6.8 TH/MM3 (1.8-7.7); BASOPHIL # 0.1 TH/MM3 (0-0.2); BASOPHIL % 0.5 % (0.0-2.0); EOSINOPHIL # 0.3 TH/MM3 (0-0.4); EOSINOPHIL % 2.4 % (0.0-4.0); HEMATOCRIT 44.3 % (39.0-51.0); HEMO FLAGS DIFF FINAL; LYMPHOCYTE # 2.7 TH/MM3 (1.0-4.8); MEAN CELL VOLUME 85.6 FL (80.0-100.0); MEAN CORPUSCULAR HEMOGLOBIN 27.8 PG (27.0-34.0); MEAN CORPUSCULAR HGB CONC 32.5 % (32.0-36.0); MONO % 5.6 % (0.0-8.0); NEUT % 65.5 % (16.0-70.0); PLATELET COUNT 251 TH/MM3 (150-450); RED BLOOD COUNT 5.18 MIL/MM3 (4.50-5.90); RED CELL DISTRIBUTION WIDTH 13.7 % (11.6-17.2); WHITE BLOOD COUNT 10.5 TH/MM3 (4.0-11.0)
[2017-02-13 23:46] LABS: CHLORIDE 100 MEQ/L (98-107); POTASSIUM 3.9 MEQ/L (3.5-5.1); SODIUM (NA) 137 MEQ/L (136-145)
[2017-02-13 23:50] LABS: ANION GAP 7 MEQ/L (5-15); BICARBONATE 30.4 MEQ/L (21.0-32.0); BLOOD UREA NITROGEN 13 MG/DL (7-18); INTERNATIONAL NORMALIZED RATIO 3.3 RATIO; PROTHROMBIN TIME - PATIENT 38.9 SEC (9.8-11.6)
[2017-02-13 23:53] LABS: ALT (GPT) 31 U/L (12-78); AST (GOT) 19 U/L (15-37); GLOMERULAR FILTRATION RATE 86 ML/MIN (>89)
[2017-02-13 23:54] LABS: TOTAL BILIRUBIN ADULT 0.3 MG/DL (0.2-1.0)
[2017-02-13 23:56] LABS: ALKALINE PHOSPHATASE 110 U/L (45-117)
[2017-02-14 00:04] LABS: BETA-HYDROXYBUTYRATE 0.18 MMOL/L (0.00-0.39)
[2017-02-14] MEDS ORDERED: BACT800T5 PO (00:29)
[2017-02-14 01:22] VITALS: BP 138/88
[2017-02-14 01:23] LABS: BLOOD, URINE NEG (NEG); GLUCOSE,URINE 1000 OR GREATER mg/dL (NEG); KETONE, URINE TRACE mg/dL (NEG); NITRITE,URINE NEG (NEG)
[2017-02-14 01:25] LABS: URINE COLOR YELLOW (YELLW/STRAW)
[2017-02-14 01:27] LABS: COMMENT (UR) CULT NOT INDICATED; CULTURE IF INDICATED CULT NOT INDICATED; RBC, URINE 0-2 /hpf (0-3); SQUAMOUS EPITHELIAL CELL URINE 0-5 /hpf (0-5); WBC, URINE 0-2 /hpf (0-5)
== END 2017-02-14 01:33 | disposition home or self-care (01) ==
LOC: PHED 21:49
DX: E11.42 Type 2 diabetes mellitus with diabetic polyneuropathy (principal); Z95.5 Presence of coronary angioplasty implant and graft; Z86.718 Personal history of other venous thrombosis and embolism; Z79.01 Long term (current) use of anticoagulants; K85.90 Acute pancreatitis without necrosis or infection, unspecified; J45.909 Unspecified asthma, uncomplicated; I25.2 Old myocardial infarction; I25.10 Atherosclerotic heart disease of native coronary artery without angina pectoris; E78.00 Pure hypercholesterolemia, unspecified; E03.9 Hypothyroidism, unspecified
CPT/HCPCS: 73610; 73630; 80053; 81001; 82010; 85025; 85610; 86403; 87070; 87205; 90471; 90714

== ENCOUNTER 2017-03-11 15:09 | Emergency (ER) | payer SELFPAY ==
[~2017-03-11] VITALS: Ht 172.7 cm; Wt 150.0 kg
[~2017-03-11 15:09] MED LIST changes: -AUGM875T3 PO; +BACT800T5 PO; -LIPI40TA PO
[2017-03-11 15:10] VITALS: BP 158/93; PULSE 99; RESP 20; TEMP 98; O2SAT 96
[2017-03-11] MEDS ORDERED: GEMF600T PO (16:29)
[2017-03-11] MEDS ORDERED: GLIP10TA6 PO (16:29)
[2017-03-11] MEDS ORDERED: METF1000 PO (16:29)
[2017-03-11] MEDS ORDERED: WARF-60 PO ×2 (16:29)
--- NOTE | 2017-03-11 16:31 | PD ---
HPI Chief Complaint: Medication Refill Request Time Seen by Provider: 16:17 Travel History International Travel<30 days: No Contact w/Intl Traveler<30days: No Traveled to known affect area: No History of Present Illness HPI 46-year-old male presents emergency department requesting medication refills on metformin, warfarin, glipizide, gemfibrozil. He has been without his medications for about 5 days. He was a patient of Dr. Jesus is at the [facility] and he says they're closed down and not seeing patients anymore. He has tried to establish care with [facility] and he says they are "being around the [place]." His blood sugar in triage was 314. Patient has no other medical complaints. He denies signs and symptoms of hyperglycemia. Allergies to adhesive, ibuprofen, latex. No other modifying factors or associated signs and symptoms. PFSH Past Medical History Hx Anticoagulant Therapy: Yes Asthma: Yes Autoimmune Disease: No Anxiety: Yes Depression: Yes Heart Rhythm Problems: No Cancer: No Cardiac Catheterization: Yes Cardiovascular Problems: Yes High Cholesterol: Yes Chemotherapy: No Chest Pain: Yes Congestive Heart Failure: No COPD: No Cerebrovascular Accident: No Coronary Artery Disease: Yes Diabetes: Yes Patient Takes Glucophage: Yes Diminished Hearing: No Deep Vein Thrombosis: Yes (DVT AND PE'S. ) Endocrine: Yes (HYPOTHYROID) Gastrointestinal Disorders: No Genitourinary: No Hypertension: No Immune Disorder: No Implanted Vascular Access Dvce: No Kidney Stones: No Musculoskeletal: No Neurologic: No Psychiatric: Yes (DEPRESSION AT TIMES, DECLINES NEEDS FOR INTERVENTION) Reproductive: No Respiratory: Yes Immunizations Current: Yes Myocardial Infarction: Yes (x3) Pancreatitis: Yes Radiation Therapy: No Renal Failure: No Sleep Apnea: No Thyroid Disease: Yes PNEUMOCCOCAL Vaccine (Year): 1 ?: Not Past Surgical History Abdominal Surgery: Yes (BILATERAL INGUINAL HERNIA REPAIRS x 2) AICD: No Arteriovenous Shunt: No Body Medical Devices: cardiac stent Cardiac Surgery: No Coronary Artery Bypass Graft: No Coronary Stent: Yes Ear Surgery: No Endocrine Surgery: No Eye Surgery: No Genitourinary Surgery: No Hysterectomy: No Insulin Pump: No Joint Replacement: No Neurologic Surgery: No Oral Surgery: No Pacemaker: No Thoracic Surgery: No Other Surgery: Yes (DVT REMOVAL FROM LEFT LEG) Family History Family Myocardial Infarction: Yes Social History Alcohol Use: No Tobacco Use: No Substance Use: No Allergies-Medications (Allergen,Severity, Reaction): Coded Allergies: adhesive (Unverified Allergy, Severe, Hives, 02/13/17) ibuprofen (Unverified Allergy, Severe, Rash, 02/13/17) latex (Unverified Allergy, Severe, RASH, 02/13/17) Reported Meds & Prescriptions Reported Meds & Active Scripts Active Glipizide 10 Mg Tab 10 Mg PO QID Take 30 minutes before a meal Metformin (Metformin HCl) 1,000 Mg Tab 1,000 Mg PO BIDPC With meals Warfarin 6 Mg Tab 12 Mg PO TUTHSA 30 Days Warfarin 6 Mg Tab 6 Mg PO SUMOWEFR Gemfibrozil 600 Mg Tab 600 Mg PO BIDAC Take 30 minutes prior to breakfast and dinner. Bactrim DS (Sulfamethoxazole-Trimethoprim) 800-160 Mg Tab 1 Tab PO BID Neurontin (Gabapentin) 600 Mg Tab 600 Mg PO TID Loperamide (Loperamide HCl) 2 Mg Cap 2 Mg PO Q12HR PRN One capsule after each loose stool. Not to exceed 8 capsules per day. Review of Systems Except as stated in HPI: all other systems reviewed are Neg Physical Exam Narrative GENERAL: Well-nourished, well-developed male patient, in no acute distress; sleeping comfortably in a dark room SKIN: Warm and dry. HEAD: Atraumatic. Normocephalic. EYES: Pupils equal and round. No scleral icterus. No injection or drainage. ENT: Mucosa pink and moist. Airway patent. NECK: Trachea midline. CARDIOVASCULAR: Regular rate. RESPIRATORY: No accessory muscle use. GASTROINTESTINAL: Obese. MUSCULOSKELETAL: No obvious deformities. No clubbing. No cyanosis. No edema. NEUROLOGICAL: Awake and alert. Oriented 3. No obvious cranial nerve deficits. Motor grossly within normal limits. Normal speech. PSYCHIATRIC: Appropriate mood and affect; insight and judgment normal. Data Data Last Documented VS Vital Signs Date Time Temp Pulse Resp B/P (MAP) Pulse Ox O2 Delivery O2 Flow Rate FiO2 03/11/17 15:10 98.0 99 20 158/93 (114) 96 Room Air Orders Orders Metformin (Glucophage) (03/11/17 16:45) Ed Discharge Order (03/11/17 16:32) MDM Medical Decision Making Medical Screen Exam Complete: Yes Emergency Medical Condition: Yes Medical Record Reviewed: Yes Differential Diagnosis Medication refill, medical clearance, high blood sugar Narrative Course 46-year-old male presents for medication refills. He has no current medical complaints. Blood sugar in triage was 314. Has not taken his medications in approximately 5 days. Metformin 1000 mg administered in the ER. Prescriptions for metformin, warfarin, glipizide, gemfibrozil provided for home. Instructed patient to follow up with [facility]. Information for follow-up provided. Instructed patient to follow up with primary care provider. Patient verbalizes understanding and agreement with treatment plan. Patient is medically cleared and stable for discharge. Discussed reasons to return to the emergency department. Patient agrees with treatment plan. The patients vital signs are stable and the patient is stable for outpatient follow-up and treatment. Patient discharged home, stable and in no acute distress. Diagnosis Primary Impression: Medication refill Referrals: [facility] Primary Care Physician Patient Instructions: General Instructions, Medication Refill, ED Additional Instructions: Medications as prescribed Follow-up with [facility] Follow-up with primary care provider Return to the emergency department immediately with worsening symptoms Med/Other Pt SpecificInfo: Prescription(s) given Scripts Glipizide (Glipizide) 10 Mg Tab 10 MG PO QID for Blood Sugar Management, #120 TAB 6 Refills Take 30 minutes before a meal Prov: Kristin Elliott 03/11/17 Metformin (Metformin) 1,000 Mg Tab 1000 MG PO BIDPC for Blood Sugar Management, #60 TAB 6 Refills With meals Prov: Kristin Elliott 03/11/17 Warfarin (Warfarin) 6 Mg Tab 12 MG PO TuThSa for Blood Clot Prevention for 30 Days, TAB 3 Refills Prov: Kristin ElliottP 03/11/17 Warfarin (Warfarin) 6 Mg Tab 6 MG PO SuMoWeFr for Blood Clot Prevention, #30 2 Refills Prov: Kristin Elliott 03/11/17 Gemfibrozil (Gemfibrozil) 600 Mg Tab 600 MG PO BIDAC, #60 TAB 0 Refills Take 30 minutes prior to breakfast and dinner. Prov: Kristin Elliott 03/11/17 Disposition: 01 DISCHARGE HOME Condition: Stable Kristin Elliott Mar 11, 2017 16:31
[2017-03-11] MEDS ORDERED: metFORMIN HCL 500 MG TAB PO ONE (16:45)
== END 2017-03-11 17:53 | disposition home or self-care (01) ==
LOC: NEPD 15:09
DX: Z76.0 Encounter for issue of repeat prescription (principal); J45.909 Unspecified asthma, uncomplicated; F32.9 Major depressive disorder, single episode, unspecified; E78.00 Pure hypercholesterolemia, unspecified; I25.10 Atherosclerotic heart disease of native coronary artery without angina pectoris; E03.9 Hypothyroidism, unspecified; Z87.19 Personal history of other diseases of the digestive system; Z86.718 Personal history of other venous thrombosis and embolism; Z86.711 Personal history of pulmonary embolism
CPT/HCPCS: 99281

== ENCOUNTER 2017-03-27 20:29 | Emergency (ER) | payer SELFPAY ==
[~2017-03-27] VITALS: Ht 172.7 cm; Wt 152.0 kg
[2017-03-27 20:30] VITALS: BP 170/80; PULSE 91; RESP 18; TEMP 97.8; O2SAT 97
[2017-03-27] MEDS ORDERED: CORTI10A EACH EAR (20:59)
[2017-03-27] MEDS ORDERED: AMOX500C PO (20:59)
[2017-03-27] MEDS ORDERED: AMOXICILLIN (TRIHYDRATE) 500 MG CAP PO ONE (21:00)
--- NOTE | 2017-03-27 21:01 | PD ---
HPI Chief Complaint: ENT Complaint Time Seen by Provider: 20:51 Travel History International Travel<30 days: No Contact w/Intl Traveler<30days: No Traveled to known affect area: No History of Present Illness HPI 46-year-old white male well-known to myself and the ER staff for multiple ER visits. He presents today with complaints of right ear pain and decreased hearing. He reports a recent cold. He also states that he has problems with wax buildup. He is complaining of decreased hearing and pain in his right ear. He states that he is homeless. He admits to having had congestion, cough general malaise earlier this past week but that has improved. He denies any fever or chills. No nausea vomiting. No abdominal pain or urine symptoms. PFSH Past Medical History Hx Anticoagulant Therapy: Yes Asthma: Yes Autoimmune Disease: No Anxiety: Yes Depression: Yes Heart Rhythm Problems: No Cancer: No Cardiac Catheterization: Yes Cardiovascular Problems: Yes ([place]) High Cholesterol: Yes Chemotherapy: No Chest Pain: Yes Congestive Heart Failure: No COPD: No Cerebrovascular Accident: No Coronary Artery Disease: Yes Diabetes: Yes Patient Takes Glucophage: Yes (METFORMIN 1200 03/27/17) Diminished Hearing: No Deep Vein Thrombosis: Yes (DVT AND PE'S. ) Endocrine: Yes (HYPOTHYROID) Gastrointestinal Disorders: No Genitourinary: No Hypertension: No Immune Disorder: No Implanted Vascular Access Dvce: No Kidney Stones: No Musculoskeletal: No Neurologic: No Psychiatric: Yes (DEPRESSION AT TIMES, DECLINES NEEDS FOR INTERVENTION) Reproductive: No Respiratory: Yes Immunizations Current: Yes Myocardial Infarction: Yes (x3) Pancreatitis: Yes Radiation Therapy: No Renal Failure: No Sleep Apnea: No Thyroid Disease: Yes PNEUMOCCOCAL Vaccine (Year): 1 Past Surgical History Abdominal Surgery: Yes (BILATERAL INGUINAL HERNIA REPAIRS x 2) AICD: No Arteriovenous Shunt: No Body Medical Devices: cardiac stent Cardiac Surgery: No Coronary Artery Bypass Graft: No Coronary Stent: Yes Ear Surgery: No Endocrine Surgery: No Eye Surgery: No Genitourinary Surgery: No Hysterectomy: No Insulin Pump: No Joint Replacement: No Neurologic Surgery: No Oral Surgery: No Pacemaker: No Thoracic Surgery: No Other Surgery: Yes (DVT REMOVAL FROM LEFT LEG) Family History Family Myocardial Infarction: Yes Social History Alcohol Use: No Tobacco Use: No Substance Use: No Allergies-Medications (Allergen,Severity, Reaction): Coded Allergies: adhesive (Unverified Allergy, Severe, Hives, 03/27/17) ibuprofen (Unverified Allergy, Severe, Rash, 03/27/17) latex (Unverified Allergy, Severe, RASH, 03/27/17) Reported Meds & Prescriptions Reported Meds & Active Scripts Active Oterfvkc-Csjhwfkgo-BC Otic Drops (Neomycin/Polymyxin/Hydrocortisone) 1 % Soln 4 Drop EACH EAR QID Amoxicillin 500 Mg Cap 500 Mg PO TID 10 Days Glipizide 10 Mg Tab 10 Mg PO QID Take 30 minutes before a meal Metformin (Metformin HCl) 1,000 Mg Tab 1,000 Mg PO BIDPC With meals Warfarin 6 Mg Tab 12 Mg PO TUTHSA 30 Days Warfarin 6 Mg Tab 6 Mg PO SUMOWEFR Gemfibrozil 600 Mg Tab 600 Mg PO BIDAC Take 30 minutes prior to breakfast and dinner. Bactrim DS (Sulfamethoxazole-Trimethoprim) 800-160 Mg Tab 1 Tab PO BID Neurontin (Gabapentin) 600 Mg Tab 600 Mg PO TID Loperamide (Loperamide HCl) 2 Mg Cap 2 Mg PO Q12HR PRN One capsule after each loose stool. Not to exceed 8 capsules per day. Review of Systems General / Constitutional: No: Fever Eyes: No: Visual changes HENT: Positive: Congestion, Ear Discharge, Earache, No: Headaches, Sore Throat Cardiovascular: No: Chest Pain or Discomfort Respiratory: Positive: Cough, No: Shortness of Breath Gastrointestinal: No: Abdominal Pain Genitourinary: No: Dysuria Musculoskeletal: No: Pain Skin: No Rash Neurologic: No: Weakness Psychiatric: No: Depression Endocrine: No: Polydipsia Hematologic/Lymphatic: No: Easy Bruising Physical Exam Narrative GENERAL: Well-developed, well-nourished in no acute distress. Nontoxic appearing. HEAD: Normocephalic, atraumatic. EYES: Pupils equal round and reactive. Extraocular motions intact. No scleral icterus. No injection or drainage. ENT: The right TM is nonvisualized due to cerumen the left TMs clear without erythema. The left external auditory canals clear. The right ear canal has cerumen up against the eardrum. Nose: clear . Posterior pharynx is pink and moist. No tonsillar edema or exudate. Uvula midline. Airway patent. NECK: Trachea midline.Supple, nontender, moves head freely. No central bony tenderness or spasm. CARDIOVASCULAR: Regular rate and rhythm without murmurs, gallops, or rubs. RESPIRATORY: Clear to auscultation. Breath sounds equal bilaterally. No wheezes , rales, or rhonchi. GASTROINTESTINAL: Abdomen soft, non-tender, obese. No hepato-splenomegaly, or palpable masses. No guarding. EXTREMITIES: No clubbing, cyanosis, or edema. No joint tenderness, effusion, +1 pedal edema noted. Compression stockings on. BACK: Nontender without deformity or crepitance. No flank tenderness. Data Data Last Documented VS Vital Signs Date Time Temp Pulse Resp B/P (MAP) Pulse Ox O2 Delivery O2 Flow Rate FiO2 03/27/17 20:30 97.8 91 18 170/80 (110) 97 Room Air Orders Orders Amoxicillin (Trimox) (03/27/17 21:00) Ed Discharge Order (03/27/17:17) [facility] Medical Decision Making Medical Screen Exam Complete: Yes Emergency Medical Condition: Yes Medical Record Reviewed: Yes Differential Diagnosis Differential diagnoses: Otitis media, otitis externa, cerumen impaction Narrative Course Patient has cerumen impaction upper respiratory symptoms. He'll be treated for possible otitis media. Diagnosis Primary Impression: Right ear impacted cerumen Additional Impression: Right otitis media Qualified Codes: H66.004 - Acute suppurative otitis media without spontaneous rupture of ear drum, recurrent, right ear Patient Instructions: General Instructions Additional Instructions: Rest. Medications as directed. Follow-up with the [facility] next week. Return to the ER for emergencies. Med/Other Pt SpecificInfo: Prescription(s) given Scripts Pskfpnul-Hrnqsonrj-NO Otic Drops (Ulqqyzwd-Uglafulzn-GW Otic Drops) 1 % Soln 4 DROP EACH EAR QID for Infection, #1 BOTTLE 0 Refills Prov: Dionicio Gore MD 03/27/17 Amoxicillin (Amoxicillin) 500 Mg Cap 500 MG PO TID for Infection for 10 Days, CAP 0 Refills Prov: Dionicio Gore MD 03/27/17 Disposition: 01 DISCHARGE HOME Condition: Stable Viet Abdalla Mar 27, 2017 21:01
== END 2017-03-27 22:38 | disposition home or self-care (01) ==
LOC: NEPD 20:29
DX: H61.21 Impacted cerumen, right ear (principal); H66.91 Otitis media, unspecified, right ear; R05 Cough; J45.909 Unspecified asthma, uncomplicated; E11.9 Type 2 diabetes mellitus without complications; E03.9 Hypothyroidism, unspecified; E78.00 Pure hypercholesterolemia, unspecified; I25.10 Atherosclerotic heart disease of native coronary artery without angina pectoris; Z59.0 Homelessness
CPT/HCPCS: 99284

== ENCOUNTER 2017-06-09 20:45 | Emergency (ER) | payer SELFPAY ==
[~2017-06-09] VITALS: Ht 172.7 cm; Wt 142.3 kg
[~2017-06-09 20:45] MED LIST changes: +AMOX500C PO; +CORTI10A EACH EAR
[2017-06-09 20:47] VITALS: BP 161/84; PULSE 92; RESP 16; TEMP 98.5; O2SAT 95
[2017-06-10] MEDS ORDERED: SODIUM CHLORID 0.9% 500 ML INJ 500 ML IV ONE (01:00)
[2017-06-10] MEDS ORDERED: CEPHALEXIN MONOHYDRATE 500 MG CAP PO ONE (01:00)
[2017-06-10] MEDS ORDERED: methylPREDNISolone SOD SUCC 125 MG/2 ML VIAL IV PUSH ONE (01:00)
[2017-06-10] MEDS ORDERED: SODIUM CHLORIDE 0.9% FLUSH 10 ML FLUSH IVF PRN (01:00)
--- NOTE | 2017-06-10 01:19 | RADRPT ---
EXAM DATE/TIME: 06/10/2017 01:00 [facility] COMPARISON: CHEST SINGLE AP, December 16, 2016, 2:43. INDICATIONS : Chest pain. MEDICAL HISTORY : DVT both legs. PE. [place]. Hernia SURGICAL HISTORY : Hernia repair. Cardiac stent. ENCOUNTER: Initial ACUITY: 1 day PAIN SCORE: 9/10 LOCATION: Bilateral chest FINDINGS: A single view of the chest demonstrates the lungs to be symmetrically aerated without evidence of mas s, infiltrate or effusion. The cardiomediastinal contours are unremarkable. Osseous structures are intact. CONCLUSION: The lungs are clear. Han Lentz MD on June 10, 2017 at 1:17 Board Certified Radiologist. This report was verified electronically.
[2017-06-10 01:52] VITALS: BP_SYST 128; BP_SYST 137; BP_DIAS 70; BP_DIAS 91; PULSE 72; RESP 18; O2SAT 96
--- NOTE | 2017-06-10 02:03 | PD ---
HPI Chief Complaint: Bite or Sting Time Seen by Provider: 00:41 Travel History International Travel<30 days: No Contact w/Intl Traveler<30days: No Traveled to known affect area: No History of Present Illness HPI Patient is a 47-year-old male presenting to emergency from for evaluation of a bee sting to his right elbow. Patient states it happened at approximately 8 PM this evening while he was walking home from the gym. He states since that time he has felt short of breath and has a band of pain underneath his right chest wall. He also states that his feet feel swollen although they are not swollen. He reports a history of neuropathy and states the pain is worse since he was stung by the bee. He reports his pain is 8 out of 10, he states it's aching, throbbing and shooting. There have been no alleviating factors. Pain is exacerbated with movement, onset was sudden. Patient states the pain in his chest is shooting. There is no radiation. PFSH Past Medical History Hx Anticoagulant Therapy: Yes Asthma: Yes Autoimmune Disease: No Anxiety: Yes Depression: Yes Heart Rhythm Problems: No Cancer: No Cardiac Catheterization: Yes Cardiovascular Problems: Yes ([place]) High Cholesterol: Yes Chemotherapy: No Chest Pain: Yes Congestive Heart Failure: No COPD: No Cerebrovascular Accident: No Coronary Artery Disease: Yes Diabetes: Yes Patient Takes Glucophage: Yes Diminished Hearing: No Deep Vein Thrombosis: Yes (DVT AND PE'S. ) Endocrine: Yes (HYPOTHYROID) Gastrointestinal Disorders: No Genitourinary: No Hypertension: No Immune Disorder: No Implanted Vascular Access Dvce: No Kidney Stones: No Musculoskeletal: No Neurologic: No Psychiatric: Yes (DEPRESSION AT TIMES, DECLINES NEEDS FOR INTERVENTION) Reproductive: No Respiratory: Yes Immunizations Current: Yes Myocardial Infarction: Yes (x3) Pancreatitis: Yes Radiation Therapy: No Renal Failure: No Sleep Apnea: No Thyroid Disease: Yes PNEUMOCCOCAL Vaccine (Year): 1 Past Surgical History Abdominal Surgery: Yes (BILATERAL INGUINAL HERNIA REPAIRS x 2) AICD: No Arteriovenous Shunt: No Body Medical Devices: cardiac stent Cardiac Surgery: No Coronary Artery Bypass Graft: No Coronary Stent: Yes Ear Surgery: No Endocrine Surgery: No Eye Surgery: No Genitourinary Surgery: No Hysterectomy: No Insulin Pump: No Joint Replacement: No Neurologic Surgery: No Oral Surgery: No Pacemaker: No Thoracic Surgery: No Other Surgery: Yes (DVT REMOVAL FROM LEFT LEG) Family History Family Myocardial Infarction: Yes Social History Alcohol Use: No Tobacco Use: No Substance Use: No Allergies-Medications (Allergen,Severity, Reaction): Coded Allergies: adhesive (Unverified Allergy, Severe, Hives, 06/10/17) ibuprofen (Unverified Allergy, Severe, Rash, 06/10/17) latex (Unverified Allergy, Severe, RASH, 06/10/17) Reported Meds & Prescriptions Reported Meds & Active Scripts Active Glipizide 10 Mg Tab 10 Mg PO QID Take 30 minutes before a meal Metformin (Metformin HCl) 1,000 Mg Tab 1,000 Mg PO BIDPC With meals Warfarin 6 Mg Tab 12 Mg PO TUTHSA 30 Days Warfarin 6 Mg Tab 6 Mg PO SUMOWEFR Gemfibrozil 600 Mg Tab 600 Mg PO BIDAC Take 30 minutes prior to breakfast and dinner. Neurontin (Gabapentin) 600 Mg Tab 600 Mg PO TID Loperamide (Loperamide HCl) 2 Mg Cap 2 Mg PO Q12HR PRN One capsule after each loose stool. Not to exceed 8 capsules per day. Review of Systems Except as stated in HPI: all other systems reviewed are Neg Cardiovascular: Positive: Chest Pain or Discomfort Respiratory: Positive: Shortness of Breath Gastrointestinal: No: Nausea, Abdominal Pain Skin: Positive Change in Pigmentation Physical Exam Narrative GENERAL: Overweight, well-developed, alert male. Resting in no acute distress. SKIN: Warm and dry. Erythema and mild edema to the posterior right elbow. No fluctuance. Warm to the touch HEAD: Atraumatic. Normocephalic. EYES: Pupils equal and round. No scleral icterus. No injection or drainage. ENT: No nasal bleeding or discharge. Mucous membranes pink and moist. NECK: Trachea midline. No JVD. CARDIOVASCULAR: Regular rate and rhythm. RESPIRATORY: No accessory muscle use. Clear to auscultation. Breath sounds equal bilaterally. GASTROINTESTINAL: Abdomen soft, non-tender, nondistended. Hepatic and splenic margins not palpable. MUSCULOSKELETAL: Extremities without clubbing, cyanosis, or edema. No obvious deformities. Tenderness to palpation on anterior chest wall on the right. NEUROLOGICAL: Awake and alert. No obvious cranial nerve deficits. Motor grossly within normal limits. Five out of 5 muscle strength in the arms and legs. Normal speech. PSYCHIATRIC: Appropriate mood and affect; insight and judgment normal. Data Data Last Documented VS Vital Signs Date Time Temp Pulse Resp B/P (MAP) Pulse Ox O2 Delivery O2 Flow Rate FiO2 06/10/17 01:57 Nasal Cannula 06/10/17 01:56 100 06/10/17 01:52 72 18 06/09/17 20:47 98.5 Orders Orders Electrocardiogram (06/10/17 00:47) Ckmb (Isoenzyme) Profile (06/10/17 00:47) Complete Blood Count With Diff (06/10/17 00:47) Comprehensive Metabolic Panel (06/10/17 00:47) Magnesium (Mg) (06/10/17 00:47) Prothrombin Time / Inr (Pt) (06/10/17 00:47) Act Partial Throm Time (Ptt) (06/10/17 00:47) Troponin I (06/10/17 00:47) Chest, Single Ap (06/10/17 00:47) Ecg Monitoring (06/10/17 00:47) Bilateral Bp Monitoring (06/10/17 00:47) Iv Access Insert/Monitor (06/10/17 00:47) Oximetry (06/10/17 00:47) Oxygen Administration (06/10/17 00:47) Sodium Chloride 0.9% Flush (Ns Flush) (06/10/17 01:00) Sodium Chlorid 0.9% 500 Ml Inj (Ns 500 M (06/10/17 01:00) Methylprednisolone So Succ Inj (Solumedr (06/10/17 01:00) Cephalexin (Keflex) (06/10/17 01:00) CKMB (06/10/17 01:47) CKMB% (06/10/17 01:47) Diphenhydramine Inj (Benadryl Inj) (06/10/17 03:15) Ed Discharge Order (06/10/17 03:04) Labs Laboratory Tests Test 06/10/17 01:47 White Blood Count 10.0 TH/MM3 Red Blood Count 4.82 MIL/MM3 Hemoglobin 14.2 GM/DL Hematocrit 40.8 % Mean Corpuscular Volume 84.5 FL Mean Corpuscular Hemoglobin 29.5 PG Mean Corpuscular Hemoglobin Concent 34.9 % Red Cell Distribution Width 14.3 % Platelet Count 239 TH/MM3 Mean Platelet Volume 8.4 FL Neutrophils (%) (Auto) 58.7 % Lymphocytes (%) (Auto) 30.4 % Monocytes (%) (Auto) 8.2 % Eosinophils (%) (Auto) 2.4 % Basophils (%) (Auto) 0.3 % Neutrophils # (Auto) 5.9 TH/MM3 Lymphocytes # (Auto) 3.0 TH/MM3 Monocytes # (Auto) 0.8 TH/MM3 Eosinophils # (Auto) 0.2 TH/MM3 Basophils # (Auto) 0.0 TH/MM3 CBC Comment DIFF FINAL Differential Comment Prothrombin Time 30.7 SEC Prothromb Time International Ratio 3.0 RATIO Activated Partial Thromboplast Time 45.8 SEC Blood Urea Nitrogen 11 MG/DL Creatinine 0.93 MG/DL Random Glucose 166 MG/DL Total Protein 7.1 GM/DL Albumin 3.5 GM/DL Calcium Level 8.3 MG/DL Magnesium Level 2.2 MG/DL Alkaline Phosphatase 81 U/L Aspartate Amino Transf (AST/SGOT) 17 U/L Alanine Aminotransferase (ALT/SGPT) 24 U/L Total Bilirubin 0.4 MG/DL Sodium Level 141 MEQ/L Potassium Level 3.8 MEQ/L Chloride Level 104 MEQ/L Carbon Dioxide Level 30.5 MEQ/L Anion Gap 7 MEQ/L Estimat Glomerular Filtration Rate 86 ML/MIN Total Creatine Kinase 131 U/L Creatine Kinase MB 0.7 NG/ML Troponin I LESS THAN 0.02 NG/ML MDM Medical Decision Making Medical Screen Exam Complete: Yes Emergency Medical Condition: Yes Interpretation(s) Last Impressions Chest X-Ray 06/10/17 0047 Signed Impressions: Service Date/Time: Saturday, June 10, 2017 01:00 - CONCLUSION: The lungs are clear. Han Lentz MD Vital Signs Date Time Temp Pulse Resp B/P (MAP) Pulse Ox O2 Delivery O2 Flow Rate FiO2 06/10/17 01:57 Nasal Cannula 06/10/17 01:56 100 Nasal Cannula 06/10/17 01:52 72 18 137/91 (106) 96 Room Air 128/70 (89) 06/09/17 20:47 98.5 92 16 161/84 (109) 95 Room Air Differential Diagnosis Allergic reaction versus cellulitis versus ACS versus chest wall pain versus metabolic abnormality versus other Narrative Course Patient is an otherwise well-appearing male presenting for evaluation of a bee sting that occurred at 8 PM this evening. Patient's vital signs are stable, he is not in any acute distress. He did report right anterior chest wall pain that started after the bee sting. Pain is reproducible on palpation. Labs and imaging ordered and pending. CBC with no acute findings, no eosinophilia Chest x-ray shows no acute disease. Chemistry with no acute findings Patient was reassessed, the redness to the right elbow has receded. She'll be given a dose of Benadryl at this time. He will be discharged home. Discussed findings the patient's presentation with my attending physician. Pain in the chest does not appear cardiac in nature. Patient has no wheezing on exam, he is well oxygenated. There does not appear to be any signs of anaphylaxis at this time as well he has been resting comfortably since he arrived. He was given strict return precautions. He is advised to monitor blood glucose at home as steroids can elevate his blood sugar. He verbalized understanding of these instructions. Patient stable for discharge. Diagnosis Primary Impression: Allergic reaction Qualified Codes: T78.40XA - Allergy, unspecified, initial encounter Additional Impression: Bee sting reaction Qualified Codes: T63.441A - Toxic effect of venom of bees, accidental ( unintentional), initial encounter Referrals: Primary Care Physician Patient Instructions: General Allergic Reaction (ED), General Instructions Additional Instructions: Take Benadryl as directed Take medications as directed, monitor blood glucose strictly Follow-up with your primary doctor Return to emergency department for any new or worsening symptoms Med/Other Pt SpecificInfo: Prescription(s) given Scripts Diphenhydramine (Diphenhydramine) 25 Mg Cap 50 MG PO Q6H Y for ALLERGIES for 7 Days, #56 CAP 0 Refills Prov: Nidia Darby 06/10/17 Cephalexin (Keflex) 500 Mg Cap 500 MG PO Q12H for Infection, #14 CAP 0 Refills Prov: Nidia Darby 06/10/17 Prednisone (Prednisone) 50 Mg Tab 50 MG PO DAILY, #3 TAB 0 Refills Prov: Nidia Darby 06/10/17 Disposition: 01 DISCHARGE HOME Condition: Stable Nidia Darby Jun 10, 2017 02:03
[2017-06-10 02:16] LABS: AUTOMATED NEUTROPHIL # 5.9 TH/MM3 (1.8-7.7); BASOPHIL % 0.3 % (0.0-2.0); EOSINOPHIL # 0.2 TH/MM3 (0-0.4); EOSINOPHIL % 2.4 % (0.0-4.0); HEMATOCRIT 40.8 % (39.0-51.0); HEMOGLOBIN 14.2 GM/DL (13.0-17.0); LYMPH % 30.4 % (9.0-44.0); MEAN CELL VOLUME 84.5 FL (80.0-100.0); MEAN CORPUSCULAR HEMOGLOBIN 29.5 PG (27.0-34.0); MEAN CORPUSCULAR HGB CONC 34.9 % (32.0-36.0); MEAN PLATELET VOLUME 8.4 FL (7.0-11.0); MONO % 8.2 % (0.0-8.0); MONOCYTE # 0.8 TH/MM3 (0-0.9); NEUT % 58.7 % (16.0-70.0); PLATELET COUNT 239 TH/MM3 (150-450); RED BLOOD COUNT 4.82 MIL/MM3 (4.50-5.90); RED CELL DISTRIBUTION WIDTH 14.3 % (11.6-17.2)
[2017-06-10 02:18] LABS: PROTHROMBIN TIME - PATIENT 30.7 SEC (9.8-11.6)
[2017-06-10 02:27] LABS: ALBUMIN 3.5 GM/DL (3.4-5.0); ALT (GPT) 24 U/L (12-78); AST (GOT) 17 U/L (15-37); BICARBONATE 30.5 MEQ/L (21.0-32.0); BLOOD UREA NITROGEN 11 MG/DL (7-18); CALCIUM 8.3 MG/DL (8.5-10.1); CHLORIDE 104 MEQ/L (98-107); CREATININE 0.93 MG/DL (0.60-1.30); GLOMERULAR FILTRATION RATE 86 ML/MIN (>89); GLUCOSE,RANDOM 166 MG/DL (74-106); MAGNESIUM 2.2 MG/DL (1.5-2.5); SODIUM (NA) 141 MEQ/L (136-145)
[2017-06-10 02:32] LABS: ALKALINE PHOSPHATASE 81 U/L (45-117); TOTAL BILIRUBIN ADULT 0.4 MG/DL (0.2-1.0); TOTAL PROTEIN 7.1 GM/DL (6.4-8.2); TROPONIN I LESS THAN 0.02 NG/ML (0.02-0.05)
[2017-06-10] MEDS ORDERED: CEPH-460 PO (03:13)
[2017-06-10] MEDS ORDERED: PRED50 PO (03:13)
[2017-06-10] MEDS ORDERED: DIPH25CA PO (03:13)
[2017-06-10] MEDS ORDERED: diphenhydrAMINE HCL 50 MG/ML VIAL IV PUSH ONE (03:15)
--- NOTE | 2017-06-10 12:07 | EKG ---
Date Performed: 06/10/2017 Time Performed: 00:54:12 PTAGE: 47 years EKG: Sinus rhythm NONSPECIFIC T-WAVE ABNORMALITY BORDERLINE ECG Since the prior tracing, there has been no significant change DOCTOR: Katie Johns Interpretating Date/Time 06/10/2017 12:07:06
== END 2017-06-10 04:18 | disposition home or self-care (01) ==
LOC: NEPD 20:45
DX: T63.441A Toxic effect of venom of bees, accidental (unintentional), initial encounter (principal); R07.89 Other chest pain; R06.02 Shortness of breath; J45.909 Unspecified asthma, uncomplicated; E78.00 Pure hypercholesterolemia, unspecified; I25.10 Atherosclerotic heart disease of native coronary artery without angina pectoris; E11.9 Type 2 diabetes mellitus without complications; E03.9 Hypothyroidism, unspecified; R94.31 Abnormal electrocardiogram [ECG] [EKG]
CPT/HCPCS: 71045; 80053; 82550; 82552; 83735; 84484; 85025; 85610; 85730; 93005; 96374; 96375; 99285; J1200; J2930; J7040

== ENCOUNTER 2017-10-19 18:35 | Emergency (ER) | payer SELFPAY ==
[~2017-10-19 18:35] MED LIST changes: -AMOX500C PO; +CEPH-460 PO; -CORTI10A EACH EAR; +DIPH25CA PO; +GABA800T PO; +METF500T PO; +PRED50 PO; +TRAM50TA PO
[2017-10-19 20:04] VITALS: BP 132/77; PULSE 89; RESP 18; TEMP 98; O2SAT 95
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
[2017-10-20 01:01] VITALS: BP 186/79; PULSE 80; RESP 20; O2SAT 97
[2017-10-20] MEDS ORDERED: WARF-60 PO ×2 (01:01)
--- NOTE | 2017-10-20 01:24 | RADRPT ---
EXAM DATE: 10/20/2017 1:17 AM EDT AGE/SEX: 47 years / Male INDICATIONS: Pain in left foot. CLINICAL DATA: This is the patient's initial encounter. Patient reports that signs and symptoms have been present for 1 day and indicates a pain score of 5/10. MEDICAL/SURGICAL HISTORY: None. None. COMPARISON: [facility], FOOT LEFT COMPLETE ([id number]), 02/13/2017. . FINDINGS: Bony structures are intact and in normal alignment. Osseous density is normal. Soft tissues are unre markable. No radiopaque foreign bodies seen. Prominent heel spur on the calcaneus. No significant changes compared to the prior study. CONCLUSION: 1. Heel spur. 2. No significant changes compared to the prior study. Electronically signed by: Hakan Lundy MD 10/20/2017 1:23 AM EDT
[2017-10-20] MEDS ORDERED: TRAM50TA PO (01:28)
[2017-10-20] MEDS ORDERED: TRIAM.1%T TOPICAL (04:43)
== END 2017-10-20 02:04 | disposition home or self-care (01) ==
LOC: NEPD 18:35
DX: S90.32XA Contusion of left foot, initial encounter (principal); E11.9 Type 2 diabetes mellitus without complications; V00.838A Other accident with motorized mobility scooter, initial encounter; Z79.84 Long term (current) use of oral hypoglycemic drugs
CPT/HCPCS: 73630; 99283

== ENCOUNTER 2017-10-20 02:05 | Emergency (ER) | payer SELFPAY ==
[2017-10-20 02:20] VITALS: BP 162/76; TEMP 98.4; O2SAT 96
[2017-10-20] MEDS ORDERED: TRIAM.1%T TOPICAL (04:43)
[2017-10-20] MEDS ORDERED: CETIRIZINE HCL 10 MG TAB PO ONE (04:45)
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
== END 2017-10-20 04:56 | disposition home or self-care (01) ==
LOC: NEPD 02:05
DX: L98.8 Other specified disorders of the skin and subcutaneous tissue (principal); J45.909 Unspecified asthma, uncomplicated; F41.9 Anxiety disorder, unspecified; F32.9 Major depressive disorder, single episode, unspecified; E78.00 Pure hypercholesterolemia, unspecified; I25.10 Atherosclerotic heart disease of native coronary artery without angina pectoris; E11.9 Type 2 diabetes mellitus without complications; E03.9 Hypothyroidism, unspecified; Z86.718 Personal history of other venous thrombosis and embolism
CPT/HCPCS: 99283